=== PATIENT | male | born 1965 | race Caucasian/White ===

== ENCOUNTER 2016-06-30 19:19 | Inpatient (IN) | payer MEDICARE, MEDICAID ==
[~2016-06-30] VITALS: Ht 170.2 cm; Wt 45.4 kg
[~2016-06-30 19:19] MED LIST: ALLEGRA60 MG PO; BENADRYL50 MG PO; BISMUTH262 MG PO; BUPROPION HCL150 M3 ORAL; CEFTIN500 MG ORAL; DOXYCYCLINE MO100 MG ORAL; ESTRADIOL1 EA10 TD; IBUPROFEN800 MG PO; ISENTRESS400 MG PO; LEVAQUIN500 MG ORAL; METRONIDAZOLE500 MG ORAL; MIRTAZAPINE30 MG PO; NASACORT AQ16.5 GM NASAL; NORVIR100 MG PO; PREMARIN1.25 MG PO; PREZISTA600 MG PO; PROAIR HFA8.5 GM INH; PROSCAR5 MG PO; RESTORIL7.5 MG PO; SEROSTIM4 MG SQ; TRUVADA TABLET1 EACH PO; VALACYCLOVIR500 MG PO; VITAMIN D50000 UNIT PO; WELLBUTRIN SR200 MG PO; ZYPREXA5 MG PO
[2016-06-30 20:50] VITALS: BP 151/89
[2016-06-30 20:55] LABS: APPEARANCE,URINE CLEAR; KETONES,URINE NEGATIVE (NEGATIVE); LEUKOCYTE ESTERASE ,URINE 1+ (NEGATIVE); NITRITE,URINE NEGATIVE (NEGATIVE); PH,URINE 6.5 (4.5-8.0); PROTEIN,URINE 2+ (NEGATIVE); UROBILINOGEN,URINE 8 MG/DL (0.0-1.0)
[2016-06-30 21:08] LABS: MEAN CORPUSCULAR HEMOGLOBIN 31.2 PG (27.0-31.0); MEAN CORPUSCULAR HGB CONC 35.7 G/DL (32.0-36.0); MEAN CORPUSCULAR VOLUME 87 FL (80-99); MEAN PLATELET VOLUME 7.4 FL (6.5-10.1); PLATELET COUNT 75 K/UL (150-450); RED BLOOD COUNT 3.95 M/UL (4.70-6.10); RED CELL DISTRIBUTION WIDTH 12.3 % (11.6-14.8); WHITE BLOOD COUNT 5.4 K/UL (4.8-10.8)
[2016-06-30 21:13] LABS: AMORPHOUS SEDIMENT,UR FEW /LPF; BACTERIA,URINE FEW /HPF
[2016-06-30 21:22] LABS: ALANINE AMINOTRANSFERASE 26 U/L (3-41); ALBUMIN/GLOBULIN RATIO 0.6 (1.0-2.7); ANION GAP 13 (5-15); ASPARTATE AMINO TRANSFERASE 47 U/L (5-40); CALCIUM 8.2 mg/dL (8.6-10.2); CARBON DIOXIDE 23 mEQ/L (20-30); CHLORIDE 91 mEQ/L (98-107); CREATININE 0.8 mg/dL (0.7-1.2); GLOMERULAR FILTRATION RATE > 60 mL/min (>60); HEMOLYSIS 4; LIPASE 65 U/L (< 60); SODIUM 127 mEQ/L (135-145); TOTAL PROTEIN 6.7 g/dL (6.6-8.7)
[2016-06-30 21:54] LABS: BAND NEUTROPHILS % (MANUAL) 1 % (0-8); EOSINOPHILS % (MANUAL) 4 % (0-3); LYMPHOCYTES % (MANUAL) 11 % (20-45); NEUTROPHILS % (MANUAL) 76 % (45-75); PLATELET MORPHOLOGY NORMAL; TOTAL CELLS COUNTED 100
[2016-06-30 21:55] LABS: BASOPHILS % (MANUAL) 0 % (0-2); PLATELET ESTIMATE DECREASED
[2016-06-30] MEDS ORDERED: DuoNeb 0.5-3(2.5)mg/3ml neb HHN ONE (22:30)
--- NOTE | 2016-06-30 22:30 | Emergency Room Report ---
History of Present Illness General Chief Complaint: Diarrhea Source: Patient Present Illness HPI Patient a 50-year-old male who presented after increased generalized weakness as well as fever and difficulty breathing. Patient prior history of HIV disease. Patient reports having high viral load as well as a low CD4 count the past. Patient reported having increased fever nonproductive cough. He had previously been receiving IVIG infusion. Patient was followed by Dr. Jin Alfonso. The patient for having increased diarrhea. He reported having some nausea without vomiting. Patient reported feeling somewhat dizzy and lightheaded. He had nonproductive cough and history of COPD Allergies: Coded Allergies: HYDROMORPHONE (Verified Allergy, Severe, RASH, 06/30/16) PROCHLORPERAZINE (Verified Allergy, Severe, RASH, 06/30/16) SULFAMETHOXAZOLE (Verified Allergy, Severe, 06/30/16) SULFONYLUREAS (Verified Allergy, Severe, 06/30/16) TRIMETHOPRIM (Verified Allergy, Severe, 06/30/16) METOCLOPRAMIDE (Verified Allergy, Mild, 06/30/16) ARIPIPRAZOLE (Unverified Allergy, Unknown, 06/30/16) HALOPERIDOL (Verified Allergy, Unknown, 06/30/16) Uncoded Allergies: Plastic tape (Allergy, Mild, 06/21/14) Patient states that he gets blisters around it. Patient History Past Medical History: see triage record, COPD, HIV Reviewed Nursing Documentation: PMH: Agreed, PSxH: Agreed Nursing Documentation-PMH Past Medical History: No History, Except For Hx Cardiac Problems: Yes - Hep C, HIV+, Portacath LUE Hx Hypertension: Yes Hx Asthma: Yes Hx COPD: Yes Hx Cancer: No Hx Gastrointestinal Problems: Yes Hx Neurological Problems: No Hx Headaches: Yes Hx Weakness: Yes Hx Fatigue: Yes Review of Systems All Other Systems: negative except mentioned in HPI Physical Exam Vital Signs Date Time Temp Pulse Resp B/P Pulse Ox O2 Delivery O2 Flow Rate FiO2 06/30/16 19:39 99.0 106 22 130/83 98 06/30/16 20:50 Room Air Sp02 EP Interpretation: reviewed, normal General Appearance: normal inspection, alert, GCS 15, mild distress, Chronically Ill Head: atraumatic ENT: normal ENT inspection, hearing grossly normal, normal voice Neck: normal inspection, full range of motion, supple, no bony tend Respiratory: normal inspection, normal breath sounds, no respiratory distress, no retraction, wheezing Cardiovascular #1: regular rate, rhythm, no edema Gastrointestinal: normal inspection, normal bowel sounds, non tender, soft, no guarding, no hernia Genitourinary: no CVA tenderness Musculoskeletal: normal inspection, back normal, normal range of motion, other - left forearm, PICC line Neurologic: normal inspection, alert, oriented x3, responsive, floor layer III-XII nml as tested, speech normal Psychiatric: normal inspection, judgement/insight normal, mood/affect normal Skin: normal inspection, normal color, no rash Medical Decision Making Diagnostic Impression: Primary Impression: Hyponatremia Additional Impressions: Hypokalemia Chronic inflammatory demyelinating polyneuropathy ER Course Patient presented for fever as well as generalized weakness. Differential diagnosis included was not limited to pneumonia, line infection, gastroenteritis, colitis, viral infection and among others.Because of complexity of patient's case laboratory testing and imaging studies were ordered. The patient noted be hyponatremic as well as hypokalemic. The patient started on breathing treatments. The patient is given oral potassium in emergency department. Dr. Dotty Whiting was contacted for inpatient management. Laboratory Tests Test 07/02/16 08:50 07/03/16 05:10 White Blood Count 2.5 x10E3/uL (3.4-10.8) L 2.1 K/UL (4.8-10.8) *L Red Blood Count 3.58 M/UL (4.70-6.10) L 3.53 M/UL (4.70-6.10) L Hemoglobin 10.7 G/DL (14.2-18.0) L 10.3 G/DL (14.2-18.0) L Hematocrit 31.0 % (42.0-52.0) L 30.6 % (42.0-52.0) L Mean Corpuscular Volume 86 FL (80-99) 87 FL (80-99) Mean Corpuscular Hemoglobin 29.8 PG (27.0-31.0) 29.2 PG (27.0-31.0) Mean Corpuscular Hemoglobin Concent 34.5 G/DL (32.0-36.0) 33.7 G/DL (32.0-36.0) Red Cell Distribution Width 12.6 % (11.6-14.8) 12.5 % (11.6-14.8) Platelet Count 78 K/UL (150-450) L 75 K/UL (150-450) L Mean Platelet Volume 6.9 FL (6.5-10.1) 7.5 FL (6.5-10.1) Neutrophils (%) (Auto) % (45.0-75.0) % (45.0-75.0) Lymphocytes (%) (Auto) % (20.0-45.0) % (20.0-45.0) Monocytes (%) (Auto) % (1.0-10.0) % (1.0-10.0) Eosinophils (%) (Auto) % (0.0-3.0) % (0.0-3.0) Basophils (%) (Auto) % (0.0-2.0) % (0.0-2.0) Differential Total Cells Counted 100 100 Neutrophils % (Manual) 59 % (45-75) 53 % (45-75) Lymphocytes % (Manual) 19 % (20-45) L 36 % (20-45) Monocytes % (Manual) 18 % (1-10) H 7 % (1-10) Eosinophils % (Manual) 3 % (0-3) 4 % (0-3) H Basophils % (Manual) 0 % (0-2) 0 % (0-2) Band Neutrophils 1 % (0-8) 0 % (0-8) Lymphocytes 21 % (.) Nucleated Red Blood Cells (.) Platelet Estimate Decreased L Decreased L Platelet Morphology Normal Normal Hypochromasia 1+ 1+ Anisocytosis 1+ Spherocytes 1+ Sodium Level 130 mEQ/L (135-145) L 132 mEQ/L (135-145) L Potassium Level 3.0 mEQ/L (3.4-4.9) L 3.8 mEQ/L (3.4-4.9) Chloride Level 98 mEQ/L (98-107) 99 mEQ/L (98-107) Carbon Dioxide Level 21 mEQ/L (20-30) 23 mEQ/L (20-30) Anion Gap 11 (5-15) 10 (5-15) Blood Urea Nitrogen 5 mg/dL (7-23) L 5 mg/dL (7-23) L Creatinine 0.6 mg/dL (0.7-1.2) L 0.7 mg/dL (0.7-1.2) Estimate Glomerular Filtration Rate > 60 mL/min (>60) > 60 mL/min (>60) Glucose Level 119 mg/dL (74-106) H 84 mg/dL (74-106) Calcium Level 7.8 mg/dL (8.6-10.2) L 7.8 mg/dL (8.6-10.2) L Total Bilirubin 0.3 mg/dL (0.0-1.2) Aspartate Amino Transferase (AST) 60 U/L (5-40) H Alanine Aminotransferase (ALT) 29 U/L (3-41) Alkaline Phosphatase 84 U/L (40-129) Total Protein 5.9 g/dL (6.6-8.7) L Albumin 2.1 g/dL (3.5-5.2) L Globulin 3.8 g/dL Albumin/Globulin Ratio 0.5 (1.0-2.7) L Absolute Lymphocytes 0.5 x10E3/uL (0.7-3.1) L Percent CD3 Cells 72.4 % (57.5-86.2) Absolute CD3 Count 362 /uL (622-2402) L Percent CD4 Cells 8.9 % (30.8-58.5) L Absolute CD4 Count 45 /uL (359-1519) L T-Lymphocyte CD4/CD8 Ratio 0.14 (0.92-3.72) L Percent CD8 Cells 63.1 % (12.0-35.5) H Absolute CD8 Count 316 /uL (109-897) Last Vital Signs Date Time Temp Pulse Resp B/P Pulse Ox O2 Delivery O2 Flow Rate FiO2 06/30/16 20:50 99.0 97 23 151/89 100 Room Air Status: unchanged Disposition: ADMITTED INPATIENT Condition: Serious Referrals: JIN ALFONSO (PCP) Bennett Still June 30, 2016 22:30
[2016-06-30 23:30] VITALS: BP 131/81
[2016-07-01] VITALS (7 sets, daily range): BP systolic 115–132; BP diastolic 71–85
[2016-07-01] MEDS ORDERED: Zolpidem 5mg tab ORAL PRN (00:15)
[2016-07-01] MEDS ORDERED: Albuterol ud Inhalation HHN PRN (00:15)
[2016-07-01 06:42] LABS: MEAN CORPUSCULAR HEMOGLOBIN 29.7 PG (27.0-31.0); MEAN CORPUSCULAR HGB CONC 34.3 G/DL (32.0-36.0); MEAN CORPUSCULAR VOLUME 87 FL (80-99); MEAN PLATELET VOLUME 7.5 FL (6.5-10.1); PLATELET COUNT 71 K/UL (150-450); RED BLOOD COUNT 3.75 M/UL (4.70-6.10); RED CELL DISTRIBUTION WIDTH 12.6 % (11.6-14.8); WHITE BLOOD COUNT 4.2 K/UL (4.8-10.8)
[2016-07-01 08:01] LABS: ALANINE AMINOTRANSFERASE 26 U/L (3-41); ALBUMIN/GLOBULIN RATIO 0.6 (1.0-2.7); ANION GAP 13 (5-15); ASPARTATE AMINO TRANSFERASE 53 U/L (5-40); CALCIUM 7.8 mg/dL (8.6-10.2); CARBON DIOXIDE 21 mEQ/L (20-30); CHLORIDE 99 mEQ/L (98-107); CREATININE 0.7 mg/dL (0.7-1.2); GLOMERULAR FILTRATION RATE > 60 mL/min (>60); HEMOLYSIS 6; POTASSIUM 3.3 mEQ/L (3.4-4.9); SODIUM 133 mEQ/L (135-145)
--- NOTE | 2016-07-01 08:35 | General Progress Note ---
Progress Note Progress Note [id number] full H&P dictated EMMANUEL KELSEY July 01, 2016 08:35
[2016-07-01] MEDS ORDERED: Isentress 400mg tab ORAL SCH (09:00)
[2016-07-01] MEDS ORDERED: Emitricitabine/Tenofovir 200/300mg tab ORAL SCH (09:00)
[2016-07-01] MEDS ORDERED: Morphine Sulfate 2mg/ml Inj IVP PRN (10:00)
[2016-07-01 10:51] LABS: BAND NEUTROPHILS % (MANUAL) 0 % (0-8); BASOPHILS % (MANUAL) 1 % (0-2); EOSINOPHILS % (MANUAL) 4 % (0-3); LYMPHOCYTES % (MANUAL) 14 % (20-45); NEUTROPHILS % (MANUAL) 72 % (45-75); PLATELET ESTIMATE DECREASED; PLATELET MORPHOLOGY NORMAL; TOTAL CELLS COUNTED 100
[2016-07-01] MEDS: Morphine Sulfate 2mg/ml Inj IVP PRN ×3 (11:04→21:46)
[2016-07-01 11:59] LABS: APPEARANCE,URINE CLEAR; KETONES,URINE NEGATIVE (NEGATIVE); LEUKOCYTE ESTERASE ,URINE NEGATIVE (NEGATIVE); NITRITE,URINE NEGATIVE (NEGATIVE); PH,URINE 7 (4.5-8.0); PROTEIN,URINE NEGATIVE (NEGATIVE); UROBILINOGEN,URINE NORMAL MG/DL (0.0-1.0)
[2016-07-01 12:18] LABS: BACTERIA,URINE OCCASIONAL /HPF; WBC,URINE 0-2 /HPF (0 - 0)
--- NOTE | 2016-07-01 12:27 | Diagnostic Imaging Report ---
Indication: Chest pain Technique: One view of the chest Comparison: 06/30/2016 Findings: Lungs and pleural spaces remain clear. Left arm PICC remains. Heart size is normal. Degenerative changes of both shoulders again noted Impression: No acute process
[2016-07-01] MEDS: cefTRIAXone 1 GM in D5W 55 ML IVPB SCH (12:31)
--- NOTE | 2016-07-01 13:32 | Diagnostic Imaging Report ---
Indication: SOB Technique: One view of the chest Comparison: 01/26/2016 Findings: Left arm PICC is again demonstrated. Lungs and pleural spaces are clear. Degenerative changes of both shoulders are again noted Impression: No acute process
[2016-07-01] MEDS: metroNIDAZOLE 500mg 100 ML IVPB SCH ×2 (15:04→21:47)
--- NOTE | 2016-07-01 15:58 | Consultation ---
History of Present Illness General Date patient seen: July 01, 2016 Chief Complaint: Diarrhea Referring physician: Dr. Whiting Reason for Consultation: COPd Present Illness HPI 50-year-old male with hx of AIDS, homeless, who presented to ER with CC of increased generalized weakness as well as fever and difficulty breathing. Patient reported having increased fever nonproductive cough. He reported having some nausea without vomiting. Patient reported feeling somewhat dizzy and lightheaded. He had nonproductive cough and history of COPD. Allergies: Coded Allergies: HYDROMORPHONE (Verified Allergy, Severe, RASH, 06/30/16) PROCHLORPERAZINE (Verified Allergy, Severe, RASH, 06/30/16) SULFAMETHOXAZOLE (Verified Allergy, Severe, 06/30/16) SULFONYLUREAS (Verified Allergy, Severe, 06/30/16) TRIMETHOPRIM (Verified Allergy, Severe, 06/30/16) METOCLOPRAMIDE (Verified Allergy, Mild, 06/30/16) ARIPIPRAZOLE (Unverified Allergy, Unknown, 06/30/16) HALOPERIDOL (Verified Allergy, Unknown, 06/30/16) Uncoded Allergies: Plastic tape (Allergy, Mild, 06/21/14) Patient states that he gets blisters around it. Medication History Scheduled Bupropion Hcl* (Bupropion Hcl Sr*), 150 MG ORAL EVERY 12 HOURS, (Reported) Darunavir Ethanolate* (Prezista*), 600 MG PO BID, (Reported) Diphenhydramine HCl (Diphenhydramine HCl), 50 MG PO QHS, (Reported) Emtricitabine/Tenofovir (Truvada Tablet), 1 EACH PO DAILY, (Reported) Estradiol (Estradiol), 1 EACH TD TWICE A WEEK, (Reported) Estrogens,Conjugated (Premarin), 1.25 MG PO DAILY, (Reported) Raltegravir (Isentress), 400 MG PO BID, (Reported) Ritonavir* (Norvir*), 100 MG PO BID, (Reported) Somatropin (Serostim), 6 MG SQ DAILY, (Reported) Scheduled PRN Albuterol Sulfate* (Proair Hfa*), 1 PUFF INH Q6HR PRN, (Reported) Patient History Healthcare decision maker Resuscitation status Full Code Advanced Directive on File Past Medical/Surgical History Past Medical/Surgical History: (1) Hepatitis C (2) Chronic inflammatory demyelinating polyneuropathy (3) Wasting syndrome (4) AIDS (5) Transgender incomplete state (6) Bipolar 1 disorder, depressed, moderate Review of Systems All Other Systems: negative except mentioned in HPI Physical Exam General Appearance: cachetic Lines, tubes and drains: peripheral HEENT: normocephalic, atraumatic Neck: non-tender, normal alignment Respiratory/Chest: chest wall non-tender, normal breath sounds Cardiovascular/Chest: normal peripheral pulses, normal rate Abdomen: normal bowel sounds, non tender Genitourinary/Rectal: normal genital exam, normal rectal exam Extremities: normal range of motion, non-tender 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 II-XII grossly normal Last 24 Hour Vital Signs Date Time Temp Pulse Resp B/P Pulse Ox O2 Delivery O2 Flow Rate FiO2 07/01/16 11:52 97.5 74 18 120/71 95 Room Air 07/01/16 07:44 98.2 93 21 128/85 96 Room Air 07/01/16 06:50 82 18 Room Air 21 07/01/16 04:00 98.2 83 18 115/76 97 Room Air 07/01/16 00:45 98.2 91 18 131/75 96 Room Air 06/30/16 23:38 99.0 98 19 131/81 97 Room Air 06/30/16 23:30 99.0 98 19 131/81 97 Room Air 06/30/16 22:57 89 18 100 Room Air 06/30/16 22:44 96 18 94 Room Air 06/30/16 22:43 87 18 Room Air 06/30/16 20:50 99.0 97 23 151/89 100 Room Air 06/30/16 19:39 99.0 106 22 130/83 98 Intake and Output 06/30/16 07/01/16 19:00 07:00 Intake Total 1080 ml Balance 1080 ml Intake Oral 480 ml IV Total 600 ml # Voids 1 # Bowel Movements 2 Laboratory Tests Test 06/30/16 20:00 06/30/16 20:30 07/01/16 05:20 07/01/16 11:11 Urine Color Yellow Pale yellow Urine Appearance Clear Clear Urine pH 6.5 (4.5-8.0) 7 (4.5-8.0) Urine Specific [place] 1.015 (1.005-1.035) 1.005 (1.005-1.035) Urine Protein 2+ (NEGATIVE) H Negative (NEGATIVE) Urine Glucose (UA) Negative (NEGATIVE) Negative (NEGATIVE) Urine Ketones Negative (NEGATIVE) Negative (NEGATIVE) Urine Occult Blood 3+ (NEGATIVE) H 1+ (NEGATIVE) H Urine Nitrite Negative (NEGATIVE) Negative (NEGATIVE) Urine Bilirubin Negative (NEGATIVE) Negative (NEGATIVE) Urine Urobilinogen 8 MG/DL (0.0-1.0) H Normal MG/DL (0.0-1.0) Urine Leukocyte Esterase 1+ (NEGATIVE) H Negative (NEGATIVE) Urine RBC 5-10 /HPF (0 - 0) H 2-4 /HPF (0 - 0) H Urine WBC 2-4 /HPF (0 - 0) 0-2 /HPF (0 - 0) Urine Squamous Epithelial Cells None /LPF (NONE/OCC) None /LPF (NONE/OCC) Urine Amorphous Sediment Few /LPF (NONE) H Urine Bacteria Few /HPF (NONE) Occasional /HPF (NONE) White Blood Count 5.4 K/UL (4.8-10.8) 4.2 K/UL (4.8-10.8) L Red Blood Count 3.95 M/UL (4.70-6.10) L 3.75 M/UL (4.70-6.10) L Hemoglobin 12.3 G/DL (14.2-18.0) L 11.1 G/DL (14.2-18.0) L Hematocrit 34.5 % (42.0-52.0) L 32.4 % (42.0-52.0) L Mean Corpuscular Volume 87 FL (80-99) 87 FL (80-99) Mean Corpuscular Hemoglobin 31.2 PG (27.0-31.0) H 29.7 PG (27.0-31.0) Mean Corpuscular Hemoglobin Concent 35.7 G/DL (32.0-36.0) 34.3 G/DL (32.0-36.0) Red Cell Distribution Width 12.3 % (11.6-14.8) 12.6 % (11.6-14.8) Platelet Count 75 K/UL (150-450) L 71 K/UL (150-450) L Mean Platelet Volume 7.4 FL (6.5-10.1) 7.5 FL (6.5-10.1) Neutrophils (%) (Auto) % (45.0-75.0) % (45.0-75.0) Lymphocytes (%) (Auto) % (20.0-45.0) % (20.0-45.0) Monocytes (%) (Auto) % (1.0-10.0) % (1.0-10.0) Eosinophils (%) (Auto) % (0.0-3.0) % (0.0-3.0) Basophils (%) (Auto) % (0.0-2.0) % (0.0-2.0) Differential Total Cells Counted 100 100 Neutrophils % (Manual) 76 % (45-75) H 72 % (45-75) Lymphocytes % (Manual) 11 % (20-45) L 14 % (20-45) L Monocytes % (Manual) 8 % (1-10) 9 % (1-10) Eosinophils % (Manual) 4 % (0-3) H 4 % (0-3) H Basophils % (Manual) 0 % (0-2) 1 % (0-2) Band Neutrophils 1 % (0-8) 0 % (0-8) Platelet Estimate Decreased L Decreased L Platelet Morphology Normal Normal Red Blood Cell Morphology Normal Normal Sodium Level 127 mEQ/L (135-145) L 133 mEQ/L (135-145) L Potassium Level 3.0 mEQ/L (3.4-4.9) L 3.3 mEQ/L (3.4-4.9) L Chloride Level 91 mEQ/L (98-107) L 99 mEQ/L (98-107) Carbon Dioxide Level 23 mEQ/L (20-30) 21 mEQ/L (20-30) Anion Gap 13 (5-15) 13 (5-15) Blood Urea Nitrogen 9 mg/dL (7-23) 7 mg/dL (7-23) Creatinine 0.8 mg/dL (0.7-1.2) 0.7 mg/dL (0.7-1.2) Estimat Glomerular Filtration Rate > 60 mL/min (>60) > 60 mL/min (>60) Glucose Level 89 mg/dL (74-106) 76 mg/dL (74-106) Calcium Level 8.2 mg/dL (8.6-10.2) L 7.8 mg/dL (8.6-10.2) L Total Bilirubin 0.7 mg/dL (0.0-1.2) 0.5 mg/dL (0.0-1.2) Aspartate Amino Transf (AST/SGOT) 47 U/L (5-40) H 53 U/L (5-40) H Alanine Aminotransferase (ALT/SGPT) 26 U/L (3-41) 26 U/L (3-41) Alkaline Phosphatase 89 U/L (40-129) 83 U/L (40-129) Total Protein 6.7 g/dL (6.6-8.7) 6.0 g/dL (6.6-8.7) L Albumin 2.6 g/dL (3.5-5.2) L 2.3 g/dL (3.5-5.2) L Globulin 4.1 g/dL 3.7 g/dL Albumin/Globulin Ratio 0.6 (1.0-2.7) L 0.6 (1.0-2.7) L Lipase 65 U/L (< 60) H Height (Feet): 5 Height (Inches): 7.00 Weight (Pounds): 100 Medications Current Medications Medications (Trade) Dose Ordered Sig/Tamar Route PRN Reason Start Time Stop Time Status Last Admin Dose Admin Abacavir/ Lamivudine (Epzicom) 1 tab DAILY ORAL 07/02/16 09:00 08/01/16 08:59 Acetaminophen (Tylenol) 650 mg Q6H PRN ORAL Mild Pain/Temp > 100.5 07/01/16 00:15 07/31/16 00:14 Albuterol Sulfate (Proventil) 2.5 mg Q4H PRN HHN Shortness of Breath 07/01/16 00:15 07/06/16 00:14 Ceftriaxone Sodium 1 gm/ Dextrose 55 ml @ 110 mls/hr Q24H IVPB 07/01/16 12:00 07/08/16 11:59 07/01/16 12:31 Dapsone 100 mg 100 mg DAILY ORAL 07/02/16 09:00 07/09/16 08:59 Darunavir (Prezista) 600 mg TWICE A DAY ORAL 07/01/16 09:00 07/31/16 08:59 UNV Dolutegravir Sodium (Tivicay) 50 mg DAILY ORAL 07/02/16 09:00 08/01/16 08:59 Estrogens Conjugated (Premarin) 1.25 mg DAILY ORAL 07/01/16 09:00 07/31/16 08:59 UNV Metronidazole (Flagyl) 100 ml @ 100 mls/hr Q8HR IVPB 07/01/16 14:00 07/08/16 13:59 07/01/16 15:04 Morphine Sulfate (Morphine Sulfate) 2 mg Q4H PRN IVP Severe Pain (Pain Scale 7-10) 07/01/16 11:00 07/08/16 10:59 07/01/16 11:04 Ondansetron HCl 4 mg 4 mg Q6H PRN IVP Nausea & Vomiting 07/01/16 00:45 07/31/16 00:44 Sodium Chloride (Sodium Chloride 1000ml bag) 1,000 ml @ 100 mls/hr Q10H IV 07/01/16 01:00 07/31/16 00:59 07/01/16 11:05 Zolpidem Tartrate (Ambien) 5 mg HSPRN PRN ORAL Insomnia 07/01/16 00:15 07/31/16 00:14 Assessment/Plan Problem List: (1) Bronchitis ICD Codes: J40 - Bronchitis, not specified as acute or chronic SNOMED: 37642310 (2) Severe malnutrition ICD Codes: E41 - Nutritional marasmus SNOMED: 55973569 (3) Hepatitis C ICD Codes: B19.20 - Viral hepatitis C SNOMED: 66998478 (4) AIDS ICD Codes: B20 - Acquired immunodeficiency syndrome SNOMED: 80792425 (5) Homelessness ICD Codes: Z59.0 - Homelessness SNOMED: 08578911 Assessment/Plan sputum for c/s antitussives respiratory treatment DC4 and DC8 count social service NATHANYOUSOLEPERJUANCHO July 01, 2016 15:58
--- NOTE | 2016-07-01 17:16 | History and Physical Report ---
DATE OF ADMISSION: 06/30/2016 REASON FOR ADMISSION: Fever and diarrhea. HISTORY OF PRESENT ILLNESS: The patient is a 50-year-old transgender male with past medical history significant for history of HIV, history of AIDS, hypertension, history of asthma, and bronchitis who presented to the emergency room complaining of three days history of fever. His fever was as high as 103 three days ago and continued to have fever. He has more than 10 bowel movements a day. Denies having any blood. He also complained of cough with no phlegm and no sputum. The patient presented to the ER. In the ER, the patient had a blood work done, which revealed severe hyponatremia and hypokalemia. He also found to have a fever, was admitted. He also has a PICC line, for that receiving IV immune globulin by his primary doctor, Dr. Abdi. PAST MEDICAL HISTORY: 1. History of heart disease. 2. History of hypertension. 3. History of asthma. 4. History of COPD. 5. History of AIDS. 6. History of hepatitis C. 7. History of chronic diarrhea in the past. PAST SURGICAL HISTORY: None mentioned. MEDICATIONS: Home medication are including 1. Serostim 4 mg every six days. 2. Norvir 100 mg daily. 3. Isentress 400 mg p.o. q. 12 h. 4. Premarin 1.25 mg p.o. daily. 5. Truvada one tablet daily. 6. Zyprexa 50 mg p.o. daily. 7. Prezista 600 mg p.o. q.12 h. 8. Bupropion 150 mg p.o. daily. 9. Albuterol and Atrovent q.6 h. p.r.n. shortness of breath. ALLERGIES: The patient is allergic to 1. Hydromorphone. 2. Promethazine. 3. Bactrim. 4. Sulfonylurea. 5. Trimethoprim. 6. Metoclopramide. 7. Haloperidol. FAMILY HISTORY: Noncontributory. REVIEW OF SYSTEMS: General: He complained of generalized weakness and has lost quite a bit of weight, he is not aware of exactly the amount of the weight loss. He complained of fever and chills and night sweats. Head And Neck: Denies any dysphagia, odynophagia, blurry vision, headache, or neck stiffness. Pulmonary: He complained of cough and no sputum. Mild shortness of breath. Mild wheezing Cardiovascular: No chest pain, but complained of palpitation. Gastrointestinal: Complained of diarrhea. No melena. No hematemesis. No hematochezia. Genitourinary: Denies any dysuria, frequency, or hematuria. Musculoskeletal: Complained of generalized weakness. Denies any localized weakness or numbness. PHYSICAL EXAMINATION: VITAL SIGNS: The patient had temperature of 99 degrees, blood pressure of 131/81, pulse rate of 98 and respiratory rate of 97. HEAD AND NECK: Bitemporal wasting. Extraocular movement intact. Pupils are reactive to light and accommodation. Dry mucous membranes. LUNGS: Clear to auscultation. CARDIAC: Regular rate and rhythm. S1 and S2 no murmur. No rub. ABDOMEN: Soft, nontender, and nondistended. He has bilateral right and left lower quadrant pain. No guarding. No rebound. EXTREMITIES: No edema. No clubbing. No cyanosis. LABORATORY AND DIAGNOSTIC DATA: The patient had WBC count of 5.4, hemoglobin of 12.3, hematocrit of 34, and platelet count of 35,000. Chemistry was sodium 127, potassium 3, chloride 91, bicarbonate 23, BUN of 9, and creatinine of 0.8. Calcium of 8.2. AST of 47, ALT of 26, and albumin of 2.6. Urine revealed specific gravity of 1.015, protein 2+, blood 3+, leukocyte esterase 1+, RBCs 5-10, and WBC 2-4. ASSESSMENT: 1. Febrile diarrhea. 2. Hyponatremia. 3. Hypokalemia. 4. Hypocalcemia. 5. Dehydration. 6. Diarrhea. 7. History of asthma. 8. History of human immunodeficiency virus. 9. History of hepatitis C. PLAN: To start the patient on IV with call the Infectious Disease consultation for evaluation. Stool for culture, C. difficile, ova and parasite, and stool cytology. I would start the patient on IV antibiotics based on the Infectious Disease recommendation. I would start the patient on normal saline for dehydration and replace the potassium. Check the vitamin D for evaluation of low calcium. For tachycardia, most likely is the result of fever, but we will get an EKG and get a Cardiology evaluation and restart the home medication. Dotty Whiting M.D. DR: CHRIS JOB#: [id number] CC:
[2016-07-01] MEDS ORDERED: Tubing IV Secondary IV ONE (17:57)
[2016-07-01] MEDS: DuoNeb 0.5-3(2.5)mg/3ml neb HHN SCH (19:42)
[2016-07-02] MEDS: DuoNeb 0.5-3(2.5)mg/3ml neb HHN SCH ×4 (01:29→20:38)
[2016-07-02 04:00] VITALS: BP 123/74
[2016-07-02] MEDS: Morphine Sulfate 2mg/ml Inj IVP PRN ×4 (04:10→20:16)
[2016-07-02] MEDS: metroNIDAZOLE 500mg 100 ML IVPB SCH ×3 (05:36→21:24)
[2016-07-02 08:57] VITALS: BP 131/80
[2016-07-02] MEDS: Dolutegravir Sodium 50mg tab ORAL SCH (09:10)
[2016-07-02] MEDS: Epzicom tab ORAL SCH (09:10)
[2016-07-02 09:14] LABS: MEAN CORPUSCULAR HEMOGLOBIN 29.8 PG (27.0-31.0); MEAN CORPUSCULAR HGB CONC 34.5 G/DL (32.0-36.0); MEAN CORPUSCULAR VOLUME 86 FL (80-99); MEAN PLATELET VOLUME 6.9 FL (6.5-10.1); PLATELET COUNT 78 K/UL (150-450); RED BLOOD COUNT 3.58 M/UL (4.70-6.10); RED CELL DISTRIBUTION WIDTH 12.6 % (11.6-14.8); WHITE BLOOD COUNT 2.6 K/UL (4.8-10.8)
[2016-07-02 09:34] LABS: ALANINE AMINOTRANSFERASE 29 U/L (3-41); ALBUMIN/GLOBULIN RATIO 0.5 (1.0-2.7); ANION GAP 11 (5-15); ASPARTATE AMINO TRANSFERASE 60 U/L (5-40); CALCIUM 7.8 mg/dL (8.6-10.2); CARBON DIOXIDE 21 mEQ/L (20-30); CHLORIDE 98 mEQ/L (98-107); CREATININE 0.6 mg/dL (0.7-1.2); GLOMERULAR FILTRATION RATE > 60 mL/min (>60); HEMOLYSIS 4; SODIUM 130 mEQ/L (135-145); TOTAL PROTEIN 5.9 g/dL (6.6-8.7)
[2016-07-02 10:31] LABS: BAND NEUTROPHILS % (MANUAL) 1 % (0-8); EOSINOPHILS % (MANUAL) 3 % (0-3); LYMPHOCYTES % (MANUAL) 19 % (20-45); NEUTROPHILS % (MANUAL) 59 % (45-75); TOTAL CELLS COUNTED 100
[2016-07-02 10:32] LABS: ANISOCYTOSIS 1+; BASOPHILS % (MANUAL) 0 % (0-2); HYPOCHROMASIA 1+; PLATELET ESTIMATE DECREASED; PLATELET MORPHOLOGY NORMAL; SPHEROCYTES 1+
[2016-07-02] MEDS: cefTRIAXone 1 GM in D5W 55 ML IVPB SCH (12:01)
[2016-07-02 12:47] VITALS: BP 123/76
--- NOTE | 2016-07-02 14:18 | Infectious Diseases Prog Note ---
Assessment/Plan Assessment/Plan Full consult dictated: A) 1) possible infectious diarrhea, possible c.diff., possible viral syndrome with gastroenteritis, uc - negative, chest x-ray negative, uri/bronchitis 2) hiv, aids 3) pmh noted P) 1) rocephin and flagyl 2) check stool w/u, labs and chest x-ray 3) anti-retroviral therapy 4) thank you Subjective Allergies: Coded Allergies: HYDROMORPHONE (Verified Allergy, Severe, RASH, 06/30/16) PROCHLORPERAZINE (Verified Allergy, Severe, RASH, 06/30/16) SULFAMETHOXAZOLE (Verified Allergy, Severe, 06/30/16) SULFONYLUREAS (Verified Allergy, Severe, 06/30/16) TRIMETHOPRIM (Verified Allergy, Severe, 06/30/16) METOCLOPRAMIDE (Verified Allergy, Mild, 06/30/16) ARIPIPRAZOLE (Unverified Allergy, Unknown, 06/30/16) HALOPERIDOL (Verified Allergy, Unknown, 06/30/16) Uncoded Allergies: Plastic tape (Allergy, Mild, 06/21/14) Patient states that he gets blisters around it. Objective Vital Signs Last 24 Hour Vital Signs Date Time Temp Pulse Resp B/P Pulse Ox O2 Delivery O2 Flow Rate FiO2 07/02/16 12:47 97.0 93 21 123/76 99 Room Air 07/02/16 12:44 Room Air 07/02/16 12:44 Room Air 07/02/16 08:57 97.7 86 21 131/80 97 Room Air 07/02/16 07:51 84 18 100 Room Air 07/02/16 07:47 21 07/02/16 07:47 84 18 96 Room Air 07/02/16 07:47 84 18 Room Air 21 07/02/16 04:45 98.0 07/02/16 04:00 97.7 84 18 123/74 96 Room Air 07/02/16 01:31 71 18 100 Room Air 07/02/16 01:31 21 07/02/16 01:30 76 18 97 Room Air 07/01/16 23:42 98.0 83 18 124/76 98 Room Air 07/01/16 20:00 97.9 89 18 132/85 98 Room Air 07/01/16 19:46 87 18 99 Room Air 07/01/16 19:45 85 18 95 Room Air 07/01/16 19:45 86 18 Room Air 21 07/01/16 19:45 21 07/01/16 18:39 97.9 07/01/16 16:00 101.7 81 18 115/80 Height (Feet): 5 Height (Inches): 7.00 Weight (Pounds): 100 Microbiology Date/Time Source Procedure Growth Status 07/01/16 11:11 Urine,Clean Catch Urine Culture - Preliminary NO GROWTH Resulted Laboratory Tests Test 07/02/16 08:50 White Blood Count Pending Red Blood Count 3.58 M/UL (4.70-6.10) L Hemoglobin 10.7 G/DL (14.2-18.0) L Hematocrit 31.0 % (42.0-52.0) L Mean Corpuscular Volume 86 FL (80-99) Mean Corpuscular Hemoglobin 29.8 PG (27.0-31.0) Mean Corpuscular Hemoglobin Concent 34.5 G/DL (32.0-36.0) Red Cell Distribution Width 12.6 % (11.6-14.8) Platelet Count 78 K/UL (150-450) L Mean Platelet Volume 6.9 FL (6.5-10.1) Neutrophils (%) (Auto) % (45.0-75.0) Lymphocytes (%) (Auto) % (20.0-45.0) Monocytes (%) (Auto) % (1.0-10.0) Eosinophils (%) (Auto) % (0.0-3.0) Basophils (%) (Auto) % (0.0-2.0) Differential Total Cells Counted 100 Neutrophils % (Manual) 59 % (45-75) Lymphocytes % (Manual) 19 % (20-45) L Monocytes % (Manual) 18 % (1-10) H Eosinophils % (Manual) 3 % (0-3) Basophils % (Manual) 0 % (0-2) Band Neutrophils 1 % (0-8) Lymphocytes Pending Platelet Estimate Decreased L Platelet Morphology Normal Hypochromasia 1+ Anisocytosis 1+ Spherocytes 1+ Sodium Level 130 mEQ/L (135-145) L Potassium Level 3.0 mEQ/L (3.4-4.9) L Chloride Level 98 mEQ/L (98-107) Carbon Dioxide Level 21 mEQ/L (20-30) Anion Gap 11 (5-15) Blood Urea Nitrogen 5 mg/dL (7-23) L Creatinine 0.6 mg/dL (0.7-1.2) L Estimat Glomerular Filtration Rate > 60 mL/min (>60) Glucose Level 119 mg/dL (74-106) H Calcium Level 7.8 mg/dL (8.6-10.2) L Total Bilirubin 0.3 mg/dL (0.0-1.2) Aspartate Amino Transf (AST/SGOT) 60 U/L (5-40) H Alanine Aminotransferase (ALT/SGPT) 29 U/L (3-41) Alkaline Phosphatase 84 U/L (40-129) Total Protein 5.9 g/dL (6.6-8.7) L Albumin 2.1 g/dL (3.5-5.2) L Globulin 3.8 g/dL Albumin/Globulin Ratio 0.5 (1.0-2.7) L Percent CD3 Cells Pending Absolute CD3 Count Pending Percent CD4 Cells Pending Absolute CD4 Count Pending T-Lymphocyte CD4/CD8 Ratio Pending Percent CD8 Cells Pending Absolute CD8 Count Pending Current Medications Medications (Trade) Dose Ordered Sig/Tamar Route PRN Reason Start Time Stop Time Status Last Admin Dose Admin Abacavir/ Lamivudine (Epzicom) 1 tab DAILY ORAL 07/02/16 09:00 08/01/16 08:59 07/02/16 09:10 Acetaminophen (Tylenol) 650 mg Q6H PRN ORAL Mild Pain/Temp > 100.5 07/01/16 00:15 07/31/16 00:14 07/01/16 17:40 Albuterol Sulfate (Proventil) 2.5 mg Q4H PRN HHN Shortness of Breath 07/01/16 00:15 07/06/16 00:14 Albuterol/ Ipratropium (DuoNeb 0.5-3(2.5)mg/3ml) 3 ml Q6HRT HHN 07/01/16 19:00 07/06/16 18:59 07/02/16 07:47 Ceftriaxone Sodium 1 gm/ Dextrose 55 ml @ 110 mls/hr Q24H IVPB 07/01/16 12:00 07/08/16 11:59 07/02/16 12:01 Dapsone 100 mg 100 mg DAILY ORAL 07/02/16 09:00 07/09/16 08:59 07/02/16 09:10 Darunavir (Prezista) 600 mg TWICE A DAY ORAL 07/01/16 09:00 07/31/16 08:59 UNV Dolutegravir Sodium (Tivicay) 50 mg DAILY ORAL 07/02/16 09:00 08/01/16 08:59 07/02/16 09:10 Estrogens Conjugated (Premarin) 1.25 mg DAILY ORAL 07/01/16 09:00 07/31/16 08:59 UNV Metronidazole (Flagyl) 100 ml @ 100 mls/hr Q8HR IVPB 07/01/16 14:00 07/08/16 13:59 07/02/16 05:36 Morphine Sulfate (Morphine Sulfate) 2 mg Q4H PRN IVP Severe Pain (Pain Scale 7-10) 07/01/16 11:00 07/08/16 10:59 07/02/16 09:45 Ondansetron HCl 4 mg 4 mg Q6H PRN IVP Nausea & Vomiting 07/01/16 00:45 07/31/16 00:44 Potassium Chloride (K-Dur) 40 meq ONCE ONCE ORAL 07/02/16 16:00 07/02/16 16:01 Promethazine HCl/ Codeine (Phenergan with Codeine) 5 ml Q4H PRN ORAL For Cough 07/01/16 16:00 07/31/16 15:59 Sodium Chloride (Sodium Chloride 1000ml bag) 1,000 ml @ 100 mls/hr Q10H IV 07/01/16 01:00 07/31/16 00:59 07/02/16 12:02 Zolpidem Tartrate (Ambien) 5 mg HSPRN PRN ORAL Insomnia 07/01/16 00:15 07/31/16 00:14 JOSE RAMIREZ July 02, 2016 14:18
[2016-07-02 16:07] VITALS: BP 101/64
[2016-07-02 20:17] VITALS: BP 129/74
[2016-07-02] MEDS: Promethazine/Codeine 5ml UD ORAL PRN (21:23)
--- NOTE | 2016-07-02 22:45 | Nephrology Progress Note ---
Assessment/Plan Assessment 1. Febrile diarrhea. 2. Hyponatremia. 3. Hypokalemia. 4. Hypocalcemia. 5. Dehydration. 6. Diarrhea. 7. History of asthma. 8. History of human immunodeficiency virus. 9. History of hepatitis C. Plan plan ivf iv antibiotic mix all ivpb with ns nutritional support replace k Subjective Constitutional: Reports: malaise, no symptoms, weakness HEENT: Reports: no symptoms Genitourinary: Reports: no symptoms Neurologic/Psychiatric: Reports: depressed Subjective c/o diarrhea and wt lost has good appetite Objective Objective Last 24 Hour Vital Signs Date Time Temp Pulse Resp B/P Pulse Ox O2 Delivery O2 Flow Rate FiO2 07/02/16 20:48 98.1 07/02/16 20:17 98.1 99 19 129/74 95 Room Air 07/02/16 19:45 85 20 98 Room Air 07/02/16 19:30 82 20 95 Room Air 07/02/16 19:30 82 20 Room Air 07/02/16 16:07 97.5 94 20 101/64 95 Room Air 07/02/16 12:47 97.0 93 21 123/76 99 Room Air 07/02/16 12:44 Room Air 07/02/16 12:44 Room Air 07/02/16 08:57 97.7 86 21 131/80 97 Room Air 07/02/16 07:51 84 18 100 Room Air 07/02/16 07:47 21 07/02/16 07:47 84 18 96 Room Air 07/02/16 07:47 84 18 Room Air 07/02/16 04:00 97.7 84 18 123/74 96 Room Air 07/02/16 01:31 71 18 100 Room Air 07/02/16 01:31 21 07/02/16 01:30 76 18 97 Room Air 07/01/16 23:42 98.0 83 18 124/76 98 Room Air Intake and Output 07/01/16 07/02/16 19:00 07:00 Intake Total 1255 ml 780 ml Balance 1255 ml 780 ml Intake Oral 600 ml 480 ml IV Total 655 ml 300 ml # Voids 3 3 # Bowel Movements 2 2 Laboratory Tests 07/02/16 08:50: White Blood Count [Pending], Red Blood Count 3.58L, Hemoglobin 10.7L, Hematocrit 31.0L, Mean Corpuscular Volume 86, Mean Corpuscular Hemoglobin 29.8, Mean Corpuscular Hemoglobin Concent 34.5, Red Cell Distribution Width 12.6, Platelet Count 78L, Mean Platelet Volume 6.9, Neutrophils (%) (Auto) , Lymphocytes (%) (Auto) , Monocytes (%) (Auto) , Eosinophils (%) (Auto) , Basophils (%) (Auto) , Differential Total Cells Counted 100, Neutrophils % ( Manual) 59, Lymphocytes % (Manual) 19L, Monocytes % (Manual) 18H, Eosinophils % (Manual) 3, Basophils % (Manual) 0, Band Neutrophils 1, Lymphocytes [Pending], Platelet Estimate DecreasedL, Platelet Morphology Normal, Hypochromasia 1+, Anisocytosis 1+, Spherocytes 1+, Sodium Level 130L, Potassium Level 3.0L, Chloride Level 98, Carbon Dioxide Level 21, Anion Gap 11, Blood Urea Nitrogen 5L , Creatinine 0.6L, Estimat Glomerular Filtration Rate > 60, Glucose Level 119H, Calcium Level 7.8L, Total Bilirubin 0.3, Aspartate Amino Transf (AST/SGOT) 60H, Alanine Aminotransferase (ALT/SGPT) 29, Alkaline Phosphatase 84, Total Protein 5.9L, Albumin 2.1L, Globulin 3.8, Albumin/Globulin Ratio 0.5L, Percent CD3 Cells [Pending], Absolute CD3 Count [Pending], Percent CD4 Cells [Pending], Absolute CD4 Count [Pending], T-Lymphocyte CD4/CD8 Ratio [Pending], Percent CD8 Cells [Pending], Absolute CD8 Count [Pending] Height (Feet): 5 Height (Inches): 7.00 Weight (Pounds): 100 Objective HEAD AND NECK: Bitemporal wasting. Extraocular movement intact. Pupils are reactive to light and accommodation. Dry mucous membranes. LUNGS: Clear to auscultation. CARDIAC: Regular rate and rhythm. S1 and S2 no murmur. No rub. ABDOMEN: Soft, nontender, and nondistended. He has bilateral right and left lower quadrant pain. No guarding. No rebound. EXTREMITIES: No edema. No clubbing. No cyanosis. EMMANUEL KELSEY July 02, 2016 22:45
[2016-07-02 23:48] VITALS: BP 121/71
--- NOTE | 2016-07-02 23:50 | Pulmonology Progress Note ---
Assessment/Plan Problems: (1) Fever (2) Bronchitis (3) Severe malnutrition (4) Hepatitis C (5) AIDS (6) Homelessness (7) Wasting syndrome Assessment/Plan check cultures continue antibiotics social service consult check electrolytes Subjective ROS Limited/Unobtainable: No Interval Events: feeling better Allergies: Coded Allergies: HYDROMORPHONE (Verified Allergy, Severe, RASH, 06/30/16) PROCHLORPERAZINE (Verified Allergy, Severe, RASH, 06/30/16) SULFAMETHOXAZOLE (Verified Allergy, Severe, 06/30/16) SULFONYLUREAS (Verified Allergy, Severe, 06/30/16) TRIMETHOPRIM (Verified Allergy, Severe, 06/30/16) METOCLOPRAMIDE (Verified Allergy, Mild, 06/30/16) ARIPIPRAZOLE (Unverified Allergy, Unknown, 06/30/16) HALOPERIDOL (Verified Allergy, Unknown, 06/30/16) Uncoded Allergies: Plastic tape (Allergy, Mild, 06/21/14) Patient states that he gets blisters around it. Objective Last 24 Hour Vital Signs Date Time Temp Pulse Resp B/P Pulse Ox O2 Delivery O2 Flow Rate FiO2 07/02/16 23:48 98.0 95 20 121/71 95 Room Air 07/02/16 20:48 98.1 07/02/16 20:17 98.1 99 19 129/74 95 Room Air 07/02/16 19:45 85 20 98 Room Air 21 07/02/16 19:30 82 20 95 Room Air 21 07/02/16 19:30 82 20 Room Air 21 07/02/16 16:07 97.5 94 20 101/64 95 Room Air 07/02/16 12:47 97.0 93 21 123/76 99 Room Air 07/02/16 12:44 Room Air 07/02/16 12:44 Room Air 07/02/16 08:57 97.7 86 21 131/80 97 Room Air 07/02/16 07:51 84 18 100 Room Air 07/02/16 07:47 21 07/02/16 07:47 84 18 96 Room Air 07/02/16 07:47 84 18 Room Air 21 07/02/16 04:00 97.7 84 18 123/74 96 Room Air 07/02/16 01:31 71 18 100 Room Air 07/02/16 01:31 21 07/02/16 01:30 76 18 97 Room Air Intake and Output 07/01/16 07/02/16 19:00 07:00 Intake Total 1255 ml 780 ml Balance 1255 ml 780 ml Intake Oral 600 ml 480 ml IV Total 655 ml 300 ml # Voids 3 3 # Bowel Movements 2 2 Objective HEENT: normocephalic, atraumatic Respiratory/Chest: chest wall non-tender, lungs clear Cardiovascular: normal peripheral pulses, normal rate Abdomen: normal bowel sounds, soft, non tender Genitourinary: normal external genitalia Extremities: no cyanosis Skin: no rash 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 II-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 grossly normal Lymphatic: no neck adenopathy Microbiology Date/Time Source Procedure Growth Status 07/01/16 11:11 Urine,Clean Catch Urine Culture - Preliminary NO GROWTH Resulted Laboratory Tests 07/02/16 08:50: White Blood Count [Pending], Red Blood Count 3.58L, Hemoglobin 10.7L, Hematocrit 31.0L, Mean Corpuscular Volume 86, Mean Corpuscular Hemoglobin 29.8, Mean Corpuscular Hemoglobin Concent 34.5, Red Cell Distribution Width 12.6, Platelet Count 78L, Mean Platelet Volume 6.9, Neutrophils (%) (Auto) , Lymphocytes (%) (Auto) , Monocytes (%) (Auto) , Eosinophils (%) (Auto) , Basophils (%) (Auto) , Differential Total Cells Counted 100, Neutrophils % ( Manual) 59, Lymphocytes % (Manual) 19L, Monocytes % (Manual) 18H, Eosinophils % (Manual) 3, Basophils % (Manual) 0, Band Neutrophils 1, Lymphocytes [Pending], Platelet Estimate DecreasedL, Platelet Morphology Normal, Hypochromasia 1+, Anisocytosis 1+, Spherocytes 1+, Sodium Level 130L, Potassium Level 3.0L, Chloride Level 98, Carbon Dioxide Level 21, Anion Gap 11, Blood Urea Nitrogen 5L , Creatinine 0.6L, Estimat Glomerular Filtration Rate > 60, Glucose Level 119H, Calcium Level 7.8L, Total Bilirubin 0.3, Aspartate Amino Transf (AST/SGOT) 60H, Alanine Aminotransferase (ALT/SGPT) 29, Alkaline Phosphatase 84, Total Protein 5.9L, Albumin 2.1L, Globulin 3.8, Albumin/Globulin Ratio 0.5L, Percent CD3 Cells [Pending], Absolute CD3 Count [Pending], Percent CD4 Cells [Pending], Absolute CD4 Count [Pending], T-Lymphocyte CD4/CD8 Ratio [Pending], Percent CD8 Cells [Pending], Absolute CD8 Count [Pending] Current Medications Medications (Trade) Dose Ordered Sig/Tamar Route PRN Reason Start Time Stop Time Status Last Admin Dose Admin Abacavir/ Lamivudine (Epzicom) 1 tab DAILY ORAL 07/02/16 09:00 08/01/16 08:59 07/02/16 09:10 Acetaminophen (Tylenol) 650 mg Q6H PRN ORAL Mild Pain/Temp > 100.5 07/01/16 00:15 07/31/16 00:14 07/01/16 17:40 Albuterol Sulfate (Proventil) 2.5 mg Q4H PRN HHN Shortness of Breath 07/01/16 00:15 07/06/16 00:14 Albuterol/ Ipratropium (DuoNeb 0.5-3(2.5)mg/3ml) 3 ml Q6HRT HHN 07/01/16 19:00 07/06/16 18:59 07/02/16 20:38 Ceftriaxone Sodium 1 gm/ Dextrose 55 ml @ 110 mls/hr Q24H IVPB 07/01/16 12:00 07/08/16 11:59 07/02/16 12:01 Dapsone 100 mg 100 mg DAILY ORAL 07/02/16 09:00 07/09/16 08:59 07/02/16 09:10 Darunavir (Prezista) 600 mg TWICE A DAY ORAL 07/01/16 09:00 07/31/16 08:59 UNV Dolutegravir Sodium (Tivicay) 50 mg DAILY ORAL 07/02/16 09:00 08/01/16 08:59 07/02/16 09:10 Estrogens Conjugated (Premarin) 1.25 mg DAILY ORAL 07/01/16 09:00 07/31/16 08:59 UNV Metronidazole (Flagyl) 100 ml @ 100 mls/hr Q8HR IVPB 07/01/16 14:00 07/08/16 13:59 07/02/16 21:24 Morphine Sulfate (Morphine Sulfate) 2 mg Q4H PRN IVP Severe Pain (Pain Scale 7-10) 07/01/16 11:00 07/08/16 10:59 07/02/16 20:16 Ondansetron HCl 4 mg 4 mg Q6H PRN IVP Nausea & Vomiting 07/01/16 00:45 07/31/16 00:44 Promethazine HCl/ Codeine (Phenergan with Codeine) 5 ml Q4H PRN ORAL For Cough 07/01/16 16:00 07/31/16 15:59 07/02/16 21:23 Sodium Chloride (Sodium Chloride 1000ml bag) 1,000 ml @ 100 mls/hr Q10H IV 07/01/16 01:00 07/31/16 00:59 07/02/16 12:02 Zolpidem Tartrate (Ambien) 5 mg HSPRN PRN ORAL Insomnia 07/01/16 00:15 07/31/16 00:14 PAULO JOHNSON July 02, 2016 23:50
[2016-07-03] MEDS: Morphine Sulfate 2mg/ml Inj IVP PRN ×3 (01:01→21:11)
--- NOTE | 2016-07-03 01:32 | Consultation ---
DATE OF CONSULTATION: 07/02/2016 INFECTIOUS DISEASE CONSULTATION CONSULTING PHYSICIAN: Nidhi Muse M.D. ATTENDING PHYSICIAN: Dotty Whiting M.D. REASON FOR CONSULTATION: Fevers and diarrhea. ADMITTING DIAGNOSES: Dehydration and hypokalemia. HISTORY OF PRESENT ILLNESS: This is a 50-year-old male with history of HIV in the past and I believe he also has history of AIDS. The patient is not on antiretroviral therapy. Infectious Disease consultation is requested because the patient has been having fevers and diarrhea. The patient has history of infectious diarrhea, history of antibiotics, and history also positive for C. difficile. The patient was started on Rocephin and Flagyl yesterday. The patient's stool workup is pending. Urine culture is negative and blood cultures are pending. CD4 count has also been ordered. The patient was continued on antibiotics of Rocephin and Flagyl pending workup. MAR was noted. Orders were noted. Notes were reviewed. Of note, the patient's chest x-ray is negative and urine culture as discussed above is negative. Also of note, the patient has had symptoms for several days at least. PAST MEDICAL HISTORY: He has history of HIV, AIDS, history of weakness, history of hepatitis C, history of CIDP, polyneuropathy, history of wasting, history of bipolar disease, and depression. No history of diabetes or hypertension. History of cystitis in the past and UTI, history of asthma, history of malnutrition and history of pancreatitis in the past, and history of methamphetamine use. He also has history of anemia. He does have history of hypertension, heart disease, asthma, and COPD. MEDICATIONS: Upon reviewing the MAR, the patient is on following medications. He is on K-Dur, dapsone, Epzicom, Tivicay, DuoNeb, Phenergan, Rocephin, Flagyl, morphine, darunavir which is Prezista, estrogen, Zofran, albuterol, zolpidem, and acetaminophen. ALLERGIES: Include aripiprazole, haloperidol, hydromorphone, metoclopramide, prochlorperazine, sulfamethoxazole, drugs, and plastic tape. SOCIAL HISTORY: At this time, negative for ETOH and smoking abuse, but he does have history of polysubstance abuse including methamphetamines in the past. FAMILY HISTORY: Noncontributory. Negative for exposure to tuberculosis or cancer. REVIEW OF SYSTEMS: Constitutional: Denies weakness, fatigue, fevers, dehydration, weight loss, failure to thrive. Head And Neck: No head pain or neck pain. No neck stiffness, thrush, or dysphagia. Cardiac: No chest pain or palpitations. Gastrointestinal: No nausea, vomiting, abdominal discomfort diarrhea. Skin: No rash. Neurologic: No seizures. Musculoskeletal: No effusions. Genitourinary: No Reese. He has got history of frequency. Pulmonary: No congestion, shortness of breath, or secretion. May be mild cough, but no significant secretions. May be he has some yellow-green sputum production, but no hemoptysis. PHYSICAL EXAMINATION: GENERAL: The patient is alert, responsive, in no acute distress, oriented x3. He looks cachetic. VITAL SIGNS: T-max is 101.7 degrees and now it is 97.0 degrees, pulse rate 93, respiratory rate 21, blood pressure 122/76, and saturation 99%. HEAD AND NECK: Oral exam, no thrush. Eye exam, no icterus. Neck is supple. No JVD. No sinus tenderness. Normocephalic. No facial droop. No neck stiffness. HEART: Regular. No gallop or murmur. No friction rub. ABDOMEN: Soft. Positive bowel sounds. Nontender. LUNGS: Clear bilaterally. No definite rales. SKIN: No rash or dermatitis. MUSCULOSKELETAL: No effusion or contractures. Lower extremities without cellulitis. PERIPHERAL VASCULAR: No cyanosis or gangrene. RECTAL: Deferred. GENITOURINARY: No Reese. LINES: Line sites are without phlebitis. NEUROLOGIC: Intact. Nonfocal. LABORATORY AND DIAGNOSTIC DATA: Laboratory data are as follows. White count 2.6, hemoglobin 10.7, and platelet count 78,000. Creatinine 0.6 and sodium 130. UA was 2-4 white blood cells. Urine culture is negative. Blood culture is pending. Chest x-ray has been negative x2. LFTs were noted. Cultures, urine and blood are pending. Stool studies are pending. ASSESSMENT AND PLAN: 1. The patient has diarrhea and fevers, possible infectious diarrhea, possible Clostridium difficile. The patient has upper respiratory infection, bronchitis, and likely also has high risk for viral syndrome, possible gastroenteritis. The patient has history of human immunodeficiency virus and acquired immunodeficiency syndrome in the past. At this time, we will continue Rocephin and Flagyl. This will cover Clostridium difficile and also infectious diarrhea. Check stool studies if done, they were ordered. Check cultures and watch temperatures closely. 2. Upper respiratory infection and bronchitis. Continue pulmonary treatment and chest x-ray was negative. 3. Human immunodeficiency virus and acquired immunodeficiency syndrome. Continue antiretroviral therapy. Check CD4 count. The patient is being followed by Dr. Alfonso as an outpatient. 4. Neuropathy. 5. Hypertension. 6. Asthma. 7. Chronic obstructive pulmonary disease. 8. Hepatitis C. 9. 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 10. History of diarrhea. 11. History of abdominal discomfort. 12. History of urinary tract infections. 13. Leukopenia, anemia, and thrombocytopenia. 14. Dehydration, given intravenous fluid hydration. 15. Failure to thrive. 16. Cachexia. 17. Malnutrition. 18. History of methamphetamine use. 19. Allergies to aripiprazole, haloperidol, hydromorphone, metoclopramide, sulfa, prochlorperazine. 20. Case discussed with RN. 21. MAR was noted. 22. Family history noncontributory. 23. No surgery. 24. History of . 25. Skin care protocol. Nidhi Muse M.D. DR: DAGO JOB#: [id number] CC:
[2016-07-03] MEDS: DuoNeb 0.5-3(2.5)mg/3ml neb HHN SCH ×4 (01:44→19:25)
[2016-07-03 04:00] VITALS: BP 124/72
[2016-07-03] MEDS: Promethazine/Codeine 5ml UD ORAL PRN ×2 (04:01→21:29)
[2016-07-03] MEDS: metroNIDAZOLE 500mg 100 ML IVPB SCH ×3 (05:41→21:04)
[2016-07-03 06:58] LABS: MEAN CORPUSCULAR HEMOGLOBIN 29.2 PG (27.0-31.0); MEAN CORPUSCULAR HGB CONC 33.7 G/DL (32.0-36.0); MEAN CORPUSCULAR VOLUME 87 FL (80-99); MEAN PLATELET VOLUME 7.5 FL (6.5-10.1); PLATELET COUNT 75 K/UL (150-450); RED BLOOD COUNT 3.53 M/UL (4.70-6.10); RED CELL DISTRIBUTION WIDTH 12.5 % (11.6-14.8)
[2016-07-03 07:02] LABS: WHITE BLOOD COUNT 2.1 K/UL (4.8-10.8)
[2016-07-03 07:20] LABS: ANION GAP 10 (5-15); CALCIUM 7.8 mg/dL (8.6-10.2); CARBON DIOXIDE 23 mEQ/L (20-30); CHLORIDE 99 mEQ/L (98-107); CREATININE 0.7 mg/dL (0.7-1.2); GLOMERULAR FILTRATION RATE > 60 mL/min (>60); HEMOLYSIS 8; POTASSIUM 3.8 mEQ/L (3.4-4.9); SODIUM 132 mEQ/L (135-145)
[2016-07-03 10:04] VITALS: BP 123/85
[2016-07-03] MEDS: Epzicom tab ORAL SCH (10:07)
[2016-07-03] MEDS: Dolutegravir Sodium 50mg tab ORAL SCH (10:08)
[2016-07-03 11:14] LABS: BAND NEUTROPHILS % (MANUAL) 0 % (0-8); BASOPHILS % (MANUAL) 0 % (0-2); EOSINOPHILS % (MANUAL) 4 % (0-3); HYPOCHROMASIA 1+; LYMPHOCYTES % (MANUAL) 36 % (20-45); NEUTROPHILS % (MANUAL) 53 % (45-75); PLATELET ESTIMATE DECREASED; PLATELET MORPHOLOGY NORMAL; TOTAL CELLS COUNTED 100
[2016-07-03 12:00] VITALS: BP 111/73
[2016-07-03 13:15] LABS: CD3 ABSOLUTE 362 /uL (622-2402); CD4 ABSOLUTE 45 /uL (359-1519); CD8 ABSOLUTE 316 /uL (109-897); LYMPHOCYTES ABSOLUTE 0.5 x10E3/uL (0.7-3.1); LYMPHS 21 % (.); WBC 2.5 x10E3/uL (3.4-10.8)
[2016-07-03] MEDS: cefTRIAXone 1 GM in D5W 55 ML IVPB SCH (14:29)
--- NOTE | 2016-07-03 16:48 | Nephrology Progress Note ---
Assessment/Plan Assessment 1. Febrile diarrhea. 2. Hyponatremia. 3. Hypokalemia. 4. Hypocalcemia. 5. Dehydration. 6. Diarrhea. 7. History of asthma. 8. History of human immunodeficiency virus. 9. History of hepatitis C. Plan plan ivf iv antibiotic mix all ivpb with ns nutritional support replace k Subjective Constitutional: Reports: malaise, weakness HEENT: Reports: no symptoms Genitourinary: Reports: no symptoms Neurologic/Psychiatric: Reports: no symptoms Subjective c/o diarrhea and wt lost has good appetite Objective Objective Last 24 Hour Vital Signs Date Time Temp Pulse Resp B/P Pulse Ox O2 Delivery O2 Flow Rate FiO2 07/03/16 12:46 Room Air 07/03/16 12:46 Room Air 07/03/16 12:00 97.7 92 20 111/73 93 Room Air 07/03/16 10:04 97.7 97 123/85 92 Room Air 07/03/16 08:14 96 20 99 Room Air 07/03/16 08:07 94 18 99 Room Air 07/03/16 08:07 94 18 Room Air 07/03/16 06:11 98.1 07/03/16 04:00 98.1 98 20 124/72 94 Room Air 07/03/16 01:45 81 20 99 Room Air 21 07/03/16 01:30 78 20 96 Room Air 21 07/02/16 23:48 98.0 95 20 121/71 95 Room Air 07/02/16 20:17 98.1 99 19 129/74 95 Room Air 07/02/16 19:45 85 20 98 Room Air 21 07/02/16 19:30 82 20 95 Room Air 21 07/02/16 19:30 82 20 Room Air 21 Intake and Output 07/02/16 07/03/16 19:00 07:00 Intake Total 1215 ml 880 ml Balance 1215 ml 880 ml Intake Oral 360 ml 680 ml IV Total 855 ml 200 ml # Voids 2 4 Laboratory Tests 07/03/16 05:10: White Blood Count 2.1*L, Red Blood Count 3.53L, Hemoglobin 10.3L, Hematocrit 30.6L, Mean Corpuscular Volume 87, Mean Corpuscular Hemoglobin 29.2, Mean Corpuscular Hemoglobin Concent 33.7, Red Cell Distribution Width 12.5, Platelet Count 75L, Mean Platelet Volume 7.5, Neutrophils (%) (Auto) , Lymphocytes (%) ( Auto) , Monocytes (%) (Auto) , Eosinophils (%) (Auto) , Basophils (%) (Auto) , Differential Total Cells Counted 100, Neutrophils % (Manual) 53, Lymphocytes % ( Manual) 36, Monocytes % (Manual) 7, Eosinophils % (Manual) 4H, Basophils % ( Manual) 0, Band Neutrophils 0, Platelet Estimate DecreasedL, Platelet Morphology Normal, Hypochromasia 1+, Sodium Level 132L, Potassium Level 3.8, Chloride Level 99, Carbon Dioxide Level 23, Anion Gap 10, Blood Urea Nitrogen 5L , Creatinine 0.7, Estimat Glomerular Filtration Rate > 60, Glucose Level 84, Calcium Level 7.8L Height (Feet): 5 Height (Inches): 7.00 Weight (Pounds): 100 Objective HEAD AND NECK: Bitemporal wasting. Extraocular movement intact. Pupils are reactive to light and accommodation. Dry mucous membranes. LUNGS: Clear to auscultation. CARDIAC: Regular rate and rhythm. S1 and S2 no murmur. No rub. ABDOMEN: Soft, nontender, and nondistended. He has bilateral right and left lower quadrant pain. No guarding. No rebound. EXTREMITIES: No edema. No clubbing. No cyanosis. EMMANUEL KELSEY July 03, 2016 16:48
[2016-07-03] MEDS: Darunavir 600mg tab ORAL SCH (18:00)
[2016-07-03 18:02] VITALS: BP 121/81
[2016-07-03] MEDS: Premarin tab 0.625MG ORAL SCH (20:00)
[2016-07-03 20:16] VITALS: BP 127/76
--- NOTE | 2016-07-03 21:04 | Pulmonology Progress Note ---
Assessment/Plan Problems: (1) Fever (2) Bronchitis (3) Severe malnutrition (4) Hepatitis C (5) AIDS (6) Homelessness (7) Wasting syndrome Assessment/Plan afebrile check cultures continue antibiotics social service consult check electrolytes on antivirals Subjective ROS Limited/Unobtainable: No Constitutional: Reports: no symptoms HEENT: Repors: no symptoms Allergies: Coded Allergies: HYDROMORPHONE (Verified Allergy, Severe, RASH, 06/30/16) PROCHLORPERAZINE (Verified Allergy, Severe, RASH, 06/30/16) SULFAMETHOXAZOLE (Verified Allergy, Severe, 06/30/16) SULFONYLUREAS (Verified Allergy, Severe, 06/30/16) TRIMETHOPRIM (Verified Allergy, Severe, 06/30/16) METOCLOPRAMIDE (Verified Allergy, Mild, 06/30/16) ARIPIPRAZOLE (Unverified Allergy, Unknown, 06/30/16) HALOPERIDOL (Verified Allergy, Unknown, 06/30/16) Uncoded Allergies: Plastic tape (Allergy, Mild, 06/21/14) Patient states that he gets blisters around it. Objective Last 24 Hour Vital Signs Date Time Temp Pulse Resp B/P Pulse Ox O2 Delivery O2 Flow Rate FiO2 07/03/16 20:16 97.9 97 20 127/76 94 Room Air 07/03/16 19:33 91 20 99 Room Air 07/03/16 19:25 106 20 98 Room Air 07/03/16 18:02 97.5 86 18 121/81 93 Room Air 07/03/16 12:46 Room Air 07/03/16 12:46 Room Air 07/03/16 12:00 97.7 92 20 111/73 93 Room Air 07/03/16 10:04 97.7 97 123/85 92 Room Air 07/03/16 08:14 96 20 99 Room Air 07/03/16 08:07 94 18 99 Room Air 07/03/16 08:07 94 18 Room Air 07/03/16 06:11 98.1 07/03/16 04:00 98.1 98 20 124/72 94 Room Air 07/03/16 01:45 81 20 99 Room Air 21 07/03/16 01:30 78 20 96 Room Air 21 07/02/16 23:48 98.0 95 20 121/71 95 Room Air Intake and Output 07/02/16 07/03/16 19:00 07:00 Intake Total 1215 ml 880 ml Balance 1215 ml 880 ml Intake Oral 360 ml 680 ml IV Total 855 ml 200 ml # Voids 2 4 Objective HEENT: normocephalic, atraumatic Respiratory/Chest: chest wall non-tender, lungs clear Cardiovascular: normal peripheral pulses, normal rate Abdomen: normal bowel sounds, soft, non tender Genitourinary: normal external genitalia Extremities: no cyanosis Skin: no rash 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 Resulted Laboratory Tests 07/03/16 05:10: White Blood Count 2.1*L, Red Blood Count 3.53L, Hemoglobin 10.3L, Hematocrit 30.6L, Mean Corpuscular Volume 87, Mean Corpuscular Hemoglobin 29.2, Mean Corpuscular Hemoglobin Concent 33.7, Red Cell Distribution Width 12.5, Platelet Count 75L, Mean Platelet Volume 7.5, Neutrophils (%) (Auto) , Lymphocytes (%) ( Auto) , Monocytes (%) (Auto) , Eosinophils (%) (Auto) , Basophils (%) (Auto) , Differential Total Cells Counted 100, Neutrophils % (Manual) 53, Lymphocytes % ( Manual) 36, Monocytes % (Manual) 7, Eosinophils % (Manual) 4H, Basophils % ( Manual) 0, Band Neutrophils 0, Platelet Estimate DecreasedL, Platelet Morphology Normal, Hypochromasia 1+, Sodium Level 132L, Potassium Level 3.8, Chloride Level 99, Carbon Dioxide Level 23, Anion Gap 10, Blood Urea Nitrogen 5L , Creatinine 0.7, Estimat Glomerular Filtration Rate > 60, Glucose Level 84, Calcium Level 7.8L Current Medications Medications (Trade) Dose Ordered Sig/Tamar Route PRN Reason Start Time Stop Time Status Last Admin Dose Admin Abacavir/ Lamivudine (Epzicom) 1 tab DAILY ORAL 07/02/16 09:00 08/01/16 08:59 07/03/16 10:07 Acetaminophen (Tylenol) 650 mg Q6H PRN ORAL Mild Pain/Temp > 100.5 07/01/16 00:15 07/31/16 00:14 07/01/16 17:40 Albuterol Sulfate (Proventil) 2.5 mg Q4H PRN HHN Shortness of Breath 07/01/16 00:15 07/06/16 00:14 Albuterol/ Ipratropium (DuoNeb 0.5-3(2.5)mg/3ml) 3 ml Q6HRT HHN 07/01/16 19:00 07/06/16 18:59 07/03/16 19:25 Ceftriaxone Sodium 1 gm/ Dextrose 55 ml @ 110 mls/hr Q24H IVPB 07/01/16 12:00 07/08/16 11:59 07/03/16 14:29 Dapsone 100 mg 100 mg DAILY ORAL 07/02/16 09:00 07/09/16 08:59 07/03/16 10:08 Darunavir (Prezista) 600 mg TWICE A DAY ORAL 07/03/16 18:00 08/02/16 17:59 Dolutegravir Sodium (Tivicay) 50 mg DAILY ORAL 07/02/16 09:00 08/01/16 08:59 07/03/16 10:08 Estrogens Conjugated (Premarin) 0.625 mg DAILY ORAL 07/03/16 20:00 08/02/16 19:59 07/03/16 20:00 Metronidazole (Flagyl) 100 ml @ 100 mls/hr Q8HR IVPB 07/01/16 14:00 07/08/16 13:59 07/03/16 15:21 Morphine Sulfate (Morphine Sulfate) 2 mg Q4H PRN IVP Severe Pain (Pain Scale 7-10) 07/01/16 11:00 07/08/16 10:59 07/03/16 05:41 Ondansetron HCl 4 mg 4 mg Q6H PRN IVP Nausea & Vomiting 07/01/16 00:45 07/31/16 00:44 07/03/16 11:08 Promethazine HCl/ Codeine (Phenergan with Codeine) 5 ml Q4H PRN ORAL For Cough 07/01/16 16:00 07/31/16 15:59 07/03/16 04:01 Sodium Chloride (Sodium Chloride 1000ml bag) 1,000 ml @ 100 mls/hr Q10H IV 07/01/16 01:00 07/31/16 00:59 07/02/16 12:02 Zolpidem Tartrate (Ambien) 5 mg HSPRN PRN ORAL Insomnia 07/01/16 00:15 07/31/16 00:14 PAULO JOHNSON July 03, 2016 21:04
--- NOTE | 2016-07-03 23:58 | Cardiology Progress Note ---
Assessment/Plan Assessment/Plan The patient is seen and examined, full consult will be dictated. Objective Last 24 Hour Vital Signs Date Time Temp Pulse Resp B/P Pulse Ox O2 Delivery O2 Flow Rate FiO2 07/03/16 21:41 97.9 07/03/16 20:16 97.9 97 20 127/76 94 Room Air 07/03/16 19:33 91 20 99 Room Air 07/03/16 19:25 106 20 98 Room Air 07/03/16 18:02 97.5 86 18 121/81 93 Room Air 07/03/16 12:46 Room Air 07/03/16 12:46 Room Air 07/03/16 12:00 97.7 92 20 111/73 93 Room Air 07/03/16 10:04 97.7 97 123/85 92 Room Air 07/03/16 08:14 96 20 99 Room Air 07/03/16 08:07 94 18 99 Room Air 07/03/16 08:07 94 18 Room Air 07/03/16 04:00 98.1 98 20 124/72 94 Room Air 07/03/16 01:45 81 20 99 Room Air 21 07/03/16 01:30 78 20 96 Room Air 21 Intake and Output 07/02/16 07/03/16 19:00 07:00 Intake Total 1215 ml 880 ml Balance 1215 ml 880 ml Intake Oral 360 ml 680 ml IV Total 855 ml 200 ml # Voids 2 4 Laboratory Tests Test 07/03/16 05:10 White Blood Count 2.1 K/UL (4.8-10.8) *L Red Blood Count 3.53 M/UL (4.70-6.10) L Hemoglobin 10.3 G/DL (14.2-18.0) L Hematocrit 30.6 % (42.0-52.0) L Mean Corpuscular Volume 87 FL (80-99) Mean Corpuscular Hemoglobin 29.2 PG (27.0-31.0) Mean Corpuscular Hemoglobin Concent 33.7 G/DL (32.0-36.0) Red Cell Distribution Width 12.5 % (11.6-14.8) Platelet Count 75 K/UL (150-450) L Mean Platelet Volume 7.5 FL (6.5-10.1) Neutrophils (%) (Auto) % (45.0-75.0) Lymphocytes (%) (Auto) % (20.0-45.0) Monocytes (%) (Auto) % (1.0-10.0) Eosinophils (%) (Auto) % (0.0-3.0) Basophils (%) (Auto) % (0.0-2.0) Differential Total Cells Counted 100 Neutrophils % (Manual) 53 % (45-75) Lymphocytes % (Manual) 36 % (20-45) Monocytes % (Manual) 7 % (1-10) Eosinophils % (Manual) 4 % (0-3) H Basophils % (Manual) 0 % (0-2) Band Neutrophils 0 % (0-8) Platelet Estimate Decreased L Platelet Morphology Normal Hypochromasia 1+ Sodium Level 132 mEQ/L (135-145) L Potassium Level 3.8 mEQ/L (3.4-4.9) Chloride Level 99 mEQ/L (98-107) Carbon Dioxide Level 23 mEQ/L (20-30) Anion Gap 10 (5-15) Blood Urea Nitrogen 5 mg/dL (7-23) L Creatinine 0.7 mg/dL (0.7-1.2) Estimat Glomerular Filtration Rate > 60 mL/min (>60) Glucose Level 84 mg/dL (74-106) Calcium Level 7.8 mg/dL (8.6-10.2) L Microbiology Date/Time Source Procedure Growth Status 07/01/16 12:00 Blood Blood Culture - Preliminary NO GROWTH AFTER 24 HOURS Resulted 07/01/16 11:45 Blood Blood Culture - Preliminary NO GROWTH AFTER 24 HOURS Resulted 07/02/16 17:05 Sputum Gram Stain - Final Resulted 07/02/16 17:05 Sputum Sputum Culture Pending Resulted 07/01/16 11:11 Urine,Clean Catch Urine Culture - Preliminary Mixed Gram Positive Organism Resulted 07/01/16 06:00 Rectum Stool Culture - Preliminary NORMAL FECAL ARIE. Resulted TAMARA VIVAR July 03, 2016 23:58
[2016-07-04] MEDS: DuoNeb 0.5-3(2.5)mg/3ml neb HHN SCH ×4 (01:21→19:43)
[2016-07-04 04:00] VITALS: BP 122/82
[2016-07-04] MEDS: metroNIDAZOLE 500mg 100 ML IVPB SCH ×3 (05:18→21:17)
[2016-07-04 08:00] VITALS: BP 118/81
--- NOTE | 2016-07-04 09:02 | Consultation ---
DATE OF CONSULTATION: 07/03/2016 CARDIOLOGY CONSULTATION CONSULTING PHYSICIAN: Pierce Barros M.D. REFERRING PHYSICIAN: Dotty Whiting M.D. REASON FOR CONSULTATION: Management of tachycardia. HISTORY OF PRESENT ILLNESS: The patient is a very unfortunate 50-year-old gentleman, who presents to the hospital with the fever, shortness of breath, and generalized weakness. The patient has history of HIV with high viral load plus low CD4 count. He started having fever, nonproductive cough, shortness of breath, and generalized weakness. The patient presented to the emergency department at the recommendation of his primary care physician, Dr. Abdi. He has also been reporting some nausea as well as diarrhea. In the emergency department, the patient was evaluated and the vital signs of blood pressure 130/83, heart rate of 106, and low grade temperature of 99 degrees. Cardiology consultation was made at the request of Dr. Whiting for management of tachycardia. PAST MEDICAL HISTORY: History of hypertension, history of of COPD, history of AIDS, , history of chronic diarrhea, history of heart disease, the detail of which is unknown. PAST SURGICAL HISTORY: None. MEDICATIONS: Serostim 4 mg p.o. q.6 hours, albuterol 1 puff inhaler every six hours as needed for wheezing, bupropion 150 mg by mouth twice a day q.12 hours, Prezista 600 mg by mouth twice daily, hydrochloride 50 mg p.o. nightly, Truvada 1 tablet p.o. daily, estradiol 1 transdermal patch twice weekly, Premarin 1.25 mg daily, Isentress 400 mg by mouth twice daily, Norvir 100 mg p.o. twice daily, and 6 mg subcutaneous daily. ALLERGIES: To hydromorphone, promethazine, Bactrim, Sulfonylurea, trimethoprim, metoclopramide, and haloperidol. FAMILY HISTORY: No premature coronary artery disease or . REVIEW OF SYSTEMS: HEENT: Denies any headache, diplopia, or blurred vision. Constitutional: Has generalized weakness as well as fever and chills and night sweats. Cardiovascular: Denies any chest pain, has some shortness of breath with the other symptoms. Denies any PND, orthopnea, leg swelling, palpitations, syncope. Pulmonary: Complaining of nonproductive cough and shortness of breath and wheezing. Gastrointestinal: Nausea and diarrhea, but no vomiting or abdominal pain. Genitourinary: Denies any hematuria, dysuria, or incontinence. Neurology: Denies any motor dysfunction, sensory deficit, or altered speech. PHYSICAL EXAMINATION: VITAL SIGNS: Blood pressure is 130/83, pulse of 106, respirations 22, pulse oximetry of 97% on room air, and temperature 99.0 degrees Fahrenheit. GENERAL: The patient is a very unfortunate 50-year-old gentleman, in no apparent respiratory distress and chronically ill. HEENT: Atraumatic and normocephalic. Anicteric. Pupils are equal, round, reactive to light and accommodation. Extraocular muscles intact. NECK: JVP is less than 5 cm. No carotid bruits. Carotid upstroke is 2+ bilaterally. CARDIOVASCULAR: Normal S1 and S2. Regular rate and rhythm. Tachycardic. No murmurs, gallops, or rubs. LUNGS: Clear to auscultation bilaterally. ABDOMEN: Soft, nontender, and nondistended. No hepatosplenomegaly. Positive bowel sounds. EXTREMITIES: No evidence of edema, clubbing, or cyanosis. LABORATORY FINDINGS: WBC 5.4, hemoglobin 12.3, hematocrit 34.5, and platelet count 75,000. Sodium was 127, potassium 3.0, chloride 91, bicarbonates 23, BUN of 9, creatinine 0.8, and glucose is 89, calcium is 8.2. Toxicology is positive for urine and positive for amphetamine, otherwise negative. Imaging data, chest x-ray showed no acute cardiopulmonary disease, left arm PICC IS seen. ASSESSMENT AND PLAN: 1. The patient is a very unfortunate 50-year-old gentleman, who is seen in Cardiology consultation at the request of Dr. Whiting. 2. Sinus tachycardia most likely due to underlying infection. sinus tachycardia disorder at this time intravenous antibiotic, hydration and Mucinex. 3. Human immunodeficiency virus disease. 4. Thrombocytopenia. I would like to thank, Dr. Whiting, for involving me in the care of this patient. Pierce Barros M.D. DR: Kati JOB#: [id number] CC:
[2016-07-04] MEDS: Epzicom tab ORAL SCH (10:03)
[2016-07-04] MEDS: Darunavir 600mg tab ORAL SCH ×2 (10:04→17:38)
[2016-07-04] MEDS: Premarin tab 0.625MG ORAL SCH (10:04)
[2016-07-04] MEDS: Dolutegravir Sodium 50mg tab ORAL SCH (10:05)
[2016-07-04] MEDS: Morphine Sulfate 2mg/ml Inj IVP PRN (10:16)
[2016-07-04 12:34] VITALS: BP 123/80
[2016-07-04] MEDS: cefTRIAXone 1 GM in D5W 55 ML IVPB SCH (12:44)
--- NOTE | 2016-07-04 13:03 | Infectious Diseases Prog Note ---
Assessment/Plan Assessment/Plan ASSESSMENT AND PLAN: 1. viral syndrome, gastroenteritis, stool culture negative, ?c.diff., hypokalemia, dehydration - clinically better - fevers resolved - continue rocephin and flagyl 2. Upper respiratory infection and bronchitis. Continue pulmonary treatment and chest x-ray was negative. 3. Human immunodeficiency virus and acquired immunodeficiency syndrome. Continue antiretroviral therapy. Check CD4 count. The patient is being followed by Dr. Alfonso as an outpatient. D/w pharmacy about anti-retroviral therapy. 4. Neuropathy. 5. Hypertension. 6. Asthma. 7. Chronic obstructive pulmonary disease. 8. Hepatitis C. 9. 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 10. History of diarrhea. 11. History of abdominal discomfort. 12. History of urinary tract infections. 13. Leukopenia, anemia, and thrombocytopenia. 14. Dehydration, given intravenous fluid hydration. 15. Failure to thrive. 16. Cachexia. 17. Malnutrition. 18. History of methamphetamine use. 19. Allergies to aripiprazole, haloperidol, hydromorphone, metoclopramide, sulfa, prochlorperazine. 20. Case discussed with RN. 21. MAR was noted. 22. Family history noncontributory. 23. No surgery hx 24. History of depression, bipolar disease, pancreatitis, mtn 25. Skin care protocol. Subjective Constitutional: Reports: fatigue, other - + generalized weakness, Denies: fever HEENT: Denies: congestion Respiratory: Denies: shortness of breath Cardiovascular: Denies: chest pain Gastrointestinal/Abdominal: Reports: diarrhea - less diarrhea , Denies: nausea , vomiting Genitourinary: Reports: other - no blancas, Denies: dysuria, hematuria Neurologic: Denies: headache Psychiatric: Denies: depression Skin: Denies: rash Hematologic: Denies: bleeding Musculoskeletal: Denies: pain Allergies: Coded Allergies: HYDROMORPHONE (Verified Allergy, Severe, RASH, 06/30/16) PROCHLORPERAZINE (Verified Allergy, Severe, RASH, 06/30/16) SULFAMETHOXAZOLE (Verified Allergy, Severe, 06/30/16) SULFONYLUREAS (Verified Allergy, Severe, 06/30/16) TRIMETHOPRIM (Verified Allergy, Severe, 06/30/16) METOCLOPRAMIDE (Verified Allergy, Mild, 06/30/16) ARIPIPRAZOLE (Unverified Allergy, Unknown, 06/30/16) HALOPERIDOL (Verified Allergy, Unknown, 06/30/16) Uncoded Allergies: Plastic tape (Allergy, Mild, 06/21/14) Patient states that he gets blisters around it. Objective Vital Signs Last 24 Hour Vital Signs Date Time Temp Pulse Resp B/P Pulse Ox O2 Delivery O2 Flow Rate FiO2 07/04/16 12:34 96.5 80 20 123/80 98 Room Air 07/04/16 08:00 97.4 97 20 118/81 98 Room Air 07/04/16 06:40 Room Air 07/04/16 06:40 Room Air 07/04/16 04:00 97.5 93 19 122/82 95 Room Air 07/04/16 01:21 Room Air 07/04/16 01:21 Room Air 07/03/16 21:41 97.9 07/03/16 20:16 97.9 97 20 127/76 94 Room Air 07/03/16 19:33 91 20 99 Room Air 07/03/16 19:25 106 20 98 Room Air 07/03/16 18:02 97.5 86 18 121/81 93 Room Air Height (Feet): 5 Height (Inches): 7.00 Weight (Pounds): 100 General Appearance: no acute distress HEENT: normocephalic, atraumatic, anicteric, mucous membranes moist, PERRL, EOMI, pharynx normal, supple, no JVD, thrush Respiratory/Chest: lungs clear, normal breath sounds, no respiratory distress, no accessory muscle use Cardiovascular: normal rate, regular rhythm, no gallop/murmur, no JVD Abdomen: normal bowel sounds, soft, non tender, no organomegaly, non distended Genitourinary: other - no blancas, no cva pain Extremities: no cyanosis Skin: no rash 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, alert, oriented x 3, responsive Lymphatic: no neck adenopathy Musculoskeletal: no effusion Objective chest x-ray - no acute process (reviewed) Microbiology Date/Time Source Procedure Growth Status 07/02/16 17:05 Sputum Gram Stain - Final Complete 07/02/16 17:05 Sputum Culture - Final Shruti Albicans Complete Microbiology Date/Time Source Procedure Growth Status 07/01/16 12:00 Blood Blood Culture - Preliminary NO GROWTH AFTER 48 HOURS Resulted 07/02/16 17:05 Sputum Gram Stain - Final Complete 07/02/16 17:05 Sputum Culture - Final Shruti Albicans Complete 07/01/16 11:11 Urine,Clean Catch Urine Culture - Final Mixed Gram Positive Organism Complete 07/01/16 06:00 Rectum Stool Culture - Final NO SALMONELLA,SHIGELLA,OR CAMPYLOBACT... Complete Labs Test 07/02/16 08:50 07/03/16 05:10 White Blood Count 2.5 x10E3/uL (3.4-10.8) 2.1 K/UL (4.8-10.8) Red Blood Count 3.58 M/UL (4.70-6.10) 3.53 M/UL (4.70-6.10) Hemoglobin 10.7 G/DL (14.2-18.0) 10.3 G/DL (14.2-18.0) Hematocrit 31.0 % (42.0-52.0) 30.6 % (42.0-52.0) Mean Corpuscular Volume 86 FL (80-99) 87 FL (80-99) Mean Corpuscular Hemoglobin 29.8 PG (27.0-31.0) 29.2 PG (27.0-31.0) Mean Corpuscular Hemoglobin Concent 34.5 G/DL (32.0-36.0) 33.7 G/DL (32.0-36.0) Red Cell Distribution Width 12.6 % (11.6-14.8) 12.5 % (11.6-14.8) Platelet Count 78 K/UL (150-450) 75 K/UL (150-450) Mean Platelet Volume 6.9 FL (6.5-10.1) 7.5 FL (6.5-10.1) Neutrophils (%) (Auto) % (45.0-75.0) % (45.0-75.0) Lymphocytes (%) (Auto) % (20.0-45.0) % (20.0-45.0) Monocytes (%) (Auto) % (1.0-10.0) % (1.0-10.0) Eosinophils (%) (Auto) % (0.0-3.0) % (0.0-3.0) Basophils (%) (Auto) % (0.0-2.0) % (0.0-2.0) Differential Total Cells Counted 100 100 Neutrophils % (Manual) 59 % (45-75) 53 % (45-75) Lymphocytes % (Manual) 19 % (20-45) 36 % (20-45) Monocytes % (Manual) 18 % (1-10) 7 % (1-10) Eosinophils % (Manual) 3 % (0-3) 4 % (0-3) Basophils % (Manual) 0 % (0-2) 0 % (0-2) Band Neutrophils 1 % (0-8) 0 % (0-8) Lymphocytes 21 % (.) Nucleated Red Blood Cells (.) Platelet Estimate Decreased Decreased Platelet Morphology Normal Normal Hypochromasia 1+ 1+ Anisocytosis 1+ Spherocytes 1+ Sodium Level 130 mEQ/L (135-145) 132 mEQ/L (135-145) Potassium Level 3.0 mEQ/L (3.4-4.9) 3.8 mEQ/L (3.4-4.9) Chloride Level 98 mEQ/L (98-107) 99 mEQ/L (98-107) Carbon Dioxide Level 21 mEQ/L (20-30) 23 mEQ/L (20-30) Anion Gap 11 (5-15) 10 (5-15) Blood Urea Nitrogen 5 mg/dL (7-23) 5 mg/dL (7-23) Creatinine 0.6 mg/dL (0.7-1.2) 0.7 mg/dL (0.7-1.2) Estimat Glomerular Filtration Rate > 60 mL/min (>60) > 60 mL/min (>60) Glucose Level 119 mg/dL (74-106) 84 mg/dL (74-106) Calcium Level 7.8 mg/dL (8.6-10.2) 7.8 mg/dL (8.6-10.2) Total Bilirubin 0.3 mg/dL (0.0-1.2) Aspartate Amino Transf (AST/SGOT) 60 U/L (5-40) Alanine Aminotransferase (ALT/SGPT) 29 U/L (3-41) Alkaline Phosphatase 84 U/L (40-129) Total Protein 5.9 g/dL (6.6-8.7) Albumin 2.1 g/dL (3.5-5.2) Globulin 3.8 g/dL Albumin/Globulin Ratio 0.5 (1.0-2.7) Absolute Lymphocytes (Cell Immunity 0.5 x10E3/uL (0.7-3.1) Percent CD3 Cells 72.4 % (57.5-86.2) Absolute CD3 Count 362 /uL (622-2402) Percent CD4 Cells 8.9 % (30.8-58.5) Absolute CD4 Count 45 /uL (359-1519) T-Lymphocyte CD4/CD8 Ratio 0.14 (0.92-3.72) Percent CD8 Cells 63.1 % (12.0-35.5) Absolute CD8 Count 316 /uL (109-897) Current Medications Medications (Trade) Dose Ordered Sig/Tamra Route PRN Reason Start Time Stop Time Status Last Admin Dose Admin Abacavir/ Lamivudine (Epzicom) 1 tab DAILY ORAL 07/02/16 09:00 08/01/16 08:59 07/04/16 10:03 Acetaminophen (Tylenol) 650 mg Q6H PRN ORAL Mild Pain/Temp > 100.5 07/01/16 00:15 07/31/16 00:14 07/01/16 17:40 Albuterol Sulfate (Proventil) 2.5 mg Q4H PRN HHN Shortness of Breath 07/01/16 00:15 07/06/16 00:14 Albuterol/ Ipratropium (DuoNeb 0.5-3(2.5)mg/3ml) 3 ml Q6HRT HHN 07/01/16 19:00 07/06/16 18:59 07/03/16 19:25 Ceftriaxone Sodium 1 gm/ Dextrose 55 ml @ 110 mls/hr Q24H IVPB 07/01/16 12:00 07/08/16 11:59 07/04/16 12:44 Dapsone 100 mg 100 mg DAILY ORAL 07/02/16 09:00 07/09/16 08:59 07/04/16 10:03 Darunavir (Prezista) 600 mg TWICE A DAY ORAL 07/03/16 18:00 08/02/16 17:59 07/04/16 10:04 Dolutegravir Sodium (Tivicay) 50 mg DAILY ORAL 07/02/16 09:00 08/01/16 08:59 07/04/16 10:05 Estrogens Conjugated (Premarin) 0.625 mg DAILY ORAL 07/03/16 20:00 08/02/16 19:59 07/04/16 10:04 Metronidazole (Flagyl) 100 ml @ 100 mls/hr Q8HR IVPB 07/01/16 14:00 07/08/16 13:59 07/04/16 05:18 Morphine Sulfate (Morphine Sulfate) 2 mg Q4H PRN IVP Severe Pain (Pain Scale 7-10) 07/01/16 11:00 07/08/16 10:59 07/04/16 10:16 Ondansetron HCl 4 mg 4 mg Q6H PRN IVP Nausea & Vomiting 07/01/16 00:45 07/31/16 00:44 07/03/16 11:08 Promethazine HCl/ Codeine (Phenergan with Codeine) 5 ml Q4H PRN ORAL For Cough 07/01/16 16:00 07/31/16 15:59 07/03/16 21:29 Sodium Chloride (Sodium Chloride 1000ml bag) 1,000 ml @ 100 mls/hr Q10H IV 07/01/16 01:00 07/31/16 00:59 07/03/16 21:15 Zolpidem Tartrate (Ambien) 5 mg HSPRN PRN ORAL Insomnia 07/01/16 00:15 07/31/16 00:14 JOSE RAMIREZ July 04, 2016 13:03
[2016-07-04] MEDS ORDERED: DAPSONE100 M1 ORAL (13:25)
[2016-07-04] MEDS ORDERED: PREMARIN0.625 MG ORAL (13:25)
[2016-07-04 16:00] VITALS: BP 121/77
[2016-07-04] MEDS: Fluconazole 100mg tab ORAL SCH (17:36)
--- NOTE | 2016-07-04 18:20 | Pulmonology Progress Note ---
Assessment/Plan Problems: (1) Fever (2) Bronchitis (3) Severe malnutrition (4) Hepatitis C (5) AIDS (6) Homelessness (7) Wasting syndrome Assessment/Plan afebrile check cultures continue antibiotics social service consult check electrolytes on antivirals pt will be a difficult placement, because 1- He is between sexes and will require a private room 2- He is home less, and any placement will be [facility]termaker 3- He is not the easiest pt to deal with I don't think that Dr. Alfonso would be of any help in placing him. Pt is followed by him for years and still homeless. He has a suite case that is behind a garbage dump behind the home depo in [place]. If Dr. Alfonso was able to find him a suitable place. He would have done by now. Subjective ROS Limited/Unobtainable: No Constitutional: Reports: no symptoms HEENT: Repors: no symptoms Respiratory: Reports: no symptoms Allergies: Coded Allergies: HYDROMORPHONE (Verified Allergy, Severe, RASH, 06/30/16) PROCHLORPERAZINE (Verified Allergy, Severe, RASH, 06/30/16) SULFAMETHOXAZOLE (Verified Allergy, Severe, 06/30/16) SULFONYLUREAS (Verified Allergy, Severe, 06/30/16) TRIMETHOPRIM (Verified Allergy, Severe, 06/30/16) METOCLOPRAMIDE (Verified Allergy, Mild, 06/30/16) ARIPIPRAZOLE (Unverified Allergy, Unknown, 06/30/16) HALOPERIDOL (Verified Allergy, Unknown, 06/30/16) Uncoded Allergies: Plastic tape (Allergy, Mild, 06/21/14) Patient states that he gets blisters around it. Objective Last 24 Hour Vital Signs Date Time Temp Pulse Resp B/P Pulse Ox O2 Delivery O2 Flow Rate FiO2 07/04/16 16:00 97.7 88 20 121/77 98 Room Air 07/04/16 13:20 Room Air 07/04/16 13:20 Room Air 07/04/16 12:34 96.5 80 20 123/80 98 Room Air 07/04/16 08:00 97.4 97 20 118/81 98 Room Air 07/04/16 06:40 Room Air 07/04/16 06:40 Room Air 07/04/16 04:00 97.5 93 19 122/82 95 Room Air 07/04/16 01:21 Room Air 07/04/16 01:21 Room Air 07/03/16 21:41 97.9 07/03/16 20:16 97.9 97 20 127/76 94 Room Air 07/03/16 19:33 91 20 99 Room Air 07/03/16 19:25 106 20 98 Room Air Intake and Output 07/03/16 07/04/16 18:59 06:59 Intake Total 595 ml 1520 ml Balance 595 ml 1520 ml Intake Oral 595 ml 720 ml IV Total 0 ml 800 ml # Voids 3 Objective HEENT: normocephalic, atraumatic Respiratory/Chest: chest wall non-tender, lungs clear Cardiovascular: normal peripheral pulses, normal rate Abdomen: normal bowel sounds, soft, non tender Genitourinary: normal external genitalia Extremities: no cyanosis Skin: no rash Neurologic/Psychiatric: environmental services aide II-XII grossly normal Lymphatic: no neck adenopathy Microbiology Date/Time Source Procedure Growth Status 07/02/16 17:05 Sputum Gram Stain - Final Complete 07/02/16 17:05 Sputum Culture - Final Shruti Albicans Complete Current Medications Medications (Trade) Dose Ordered Sig/Tamar Route PRN Reason Start Time Stop Time Status Last Admin Dose Admin Abacavir/ Lamivudine (Epzicom) 1 tab DAILY ORAL 07/02/16 09:00 08/01/16 08:59 07/04/16 10:03 Acetaminophen (Tylenol) 650 mg Q6H PRN ORAL Mild Pain/Temp > 100.5 07/01/16 00:15 07/31/16 00:14 07/01/16 17:40 Albuterol Sulfate (Proventil) 2.5 mg Q4H PRN HHN Shortness of Breath 07/01/16 00:15 07/06/16 00:14 Albuterol/ Ipratropium (DuoNeb 0.5-3(2.5)mg/3ml) 3 ml Q6HRT HHN 07/01/16 19:00 07/06/16 18:59 07/03/16 19:25 Ceftriaxone Sodium 1 gm/ Dextrose 55 ml @ 110 mls/hr Q24H IVPB 07/01/16 12:00 07/08/16 11:59 07/04/16 12:44 Dapsone 100 mg 100 mg DAILY ORAL 07/02/16 09:00 07/09/16 08:59 07/04/16 10:03 Darunavir (Prezista) 600 mg TWICE A DAY ORAL 07/03/16 18:00 08/02/16 17:59 07/04/16 17:38 Dolutegravir Sodium (Tivicay) 50 mg DAILY ORAL 07/02/16 09:00 08/01/16 08:59 07/04/16 10:05 Estrogens Conjugated (Premarin) 0.625 mg DAILY ORAL 07/03/16 20:00 08/02/16 19:59 07/04/16 10:04 Fluconazole (Diflucan) 100 mg DAILY ORAL 07/04/16 14:00 07/11/16 13:59 07/04/16 17:36 Metronidazole (Flagyl) 100 ml @ 100 mls/hr Q8HR IVPB 07/01/16 14:00 07/08/16 13:59 07/04/16 14:08 Morphine Sulfate (Morphine Sulfate) 2 mg Q4H PRN IVP Severe Pain (Pain Scale 7-10) 07/01/16 11:00 07/08/16 10:59 07/04/16 10:16 Ondansetron HCl 4 mg 4 mg Q6H PRN IVP Nausea & Vomiting 07/01/16 00:45 07/31/16 00:44 07/04/16 14:06 Promethazine HCl/ Codeine (Phenergan with Codeine) 5 ml Q4H PRN ORAL For Cough 07/01/16 16:00 07/31/16 15:59 07/03/16 21:29 Sodium Chloride (Sodium Chloride 1000ml bag) 1,000 ml @ 100 mls/hr Q10H IV 07/01/16 01:00 07/31/16 00:59 07/03/16 21:15 Zolpidem Tartrate (Ambien) 5 mg HSPRN PRN ORAL Insomnia 07/01/16 00:15 07/31/16 00:14 PAULO JOHNSON July 04, 2016 18:20
--- NOTE | 2016-07-04 19:57 | Nephrology Progress Note ---
Assessment/Plan Assessment 1. Febrile diarrhea. 2. Hyponatremia. 3. Hypokalemia. 4. Hypocalcemia. 5. Dehydration. 6. Diarrhea. 7. History of asthma. 8. History of human immunodeficiency virus. 9. History of hepatitis C. Plan plan ivf iv antibiotic mix all ivpb with ns nutritional support replace k Subjective Constitutional: Reports: malaise, weakness HEENT: Reports: no symptoms Genitourinary: Reports: no symptoms Neurologic/Psychiatric: Reports: no symptoms Subjective c/o diarrhea and cough very weak has good appetite Objective Objective Last 24 Hour Vital Signs Date Time Temp Pulse Resp B/P Pulse Ox O2 Delivery O2 Flow Rate FiO2 07/04/16 19:50 84 15 97 Room Air 07/04/16 19:43 90 16 98 Room Air 07/04/16 16:00 97.7 88 20 121/77 98 Room Air 07/04/16 13:20 Room Air 07/04/16 13:20 Room Air 07/04/16 12:34 96.5 80 20 123/80 98 Room Air 07/04/16 08:00 97.4 97 20 118/81 98 Room Air 07/04/16 06:40 Room Air 07/04/16 06:40 Room Air 07/04/16 04:00 97.5 93 19 122/82 95 Room Air 07/04/16 01:21 Room Air 07/04/16 01:21 Room Air 07/03/16 21:41 97.9 07/03/16 20:16 97.9 97 20 127/76 94 Room Air Intake and Output 07/03/16 07/04/16 19:00 07:00 Intake Total 595 ml 1520 ml Balance 595 ml 1520 ml Intake Oral 595 ml 720 ml IV Total 0 ml 800 ml # Voids 3 Height (Feet): 5 Height (Inches): 7.00 Weight (Pounds): 100 Objective HEAD AND NECK: Bitemporal wasting. Extraocular movement intact. Pupils are reactive to light and accommodation. Dry mucous membranes. LUNGS: Clear to auscultation. CARDIAC: Regular rate and rhythm. S1 and S2 no murmur. No rub. ABDOMEN: Soft, nontender, and nondistended. He has bilateral right and left lower quadrant pain. No guarding. No rebound. EXTREMITIES: No edema. No clubbing. No cyanosis. EMMANUEL KELSEY July 04, 2016 19:57
[2016-07-04 20:00] VITALS: BP 121/85
[2016-07-05] VITALS: BP 115/74
[2016-07-05] MEDS: DuoNeb 0.5-3(2.5)mg/3ml neb HHN SCH ×2 (01:00→07:30)
[2016-07-05 04:00] VITALS: BP 112/80
[2016-07-05] MEDS: metroNIDAZOLE 500mg 100 ML IVPB SCH (05:06)
[2016-07-05 08:00] VITALS: BP 101/65
[2016-07-05] MEDS: Epzicom tab ORAL SCH (09:07)
[2016-07-05] MEDS: Premarin tab 0.625MG ORAL SCH (09:07)
[2016-07-05] MEDS: Dolutegravir Sodium 50mg tab ORAL SCH (09:07)
[2016-07-05] MEDS: Fluconazole 100mg tab ORAL SCH (09:07)
[2016-07-05] MEDS: Darunavir 600mg tab ORAL SCH (09:07)
[2016-07-05] MEDS ORDERED: NS 275ml ONE (09:44)
[2016-07-05] MEDS ORDERED: Tubing IV Secondary IV ONE (09:44)
--- NOTE | 2016-07-05 22:15 | Pulmonology Progress Note ---
Assessment/Plan Problems: (1) Fever (2) Bronchitis (3) Severe malnutrition (4) Hepatitis C (5) AIDS (6) Homelessness (7) Wasting syndrome Assessment/Plan pt had a bed at a assisted living facility. The discharge order was canceled. today pt singed out AMA to go live on the [address]. Subjective ROS Limited/Unobtainable: No Allergies: Coded Allergies: HYDROMORPHONE (Verified Allergy, Severe, RASH, 06/30/16) PROCHLORPERAZINE (Verified Allergy, Severe, RASH, 06/30/16) SULFAMETHOXAZOLE (Verified Allergy, Severe, 06/30/16) SULFONYLUREAS (Verified Allergy, Severe, 06/30/16) TRIMETHOPRIM (Verified Allergy, Severe, 06/30/16) METOCLOPRAMIDE (Verified Allergy, Mild, 06/30/16) ARIPIPRAZOLE (Unverified Allergy, Unknown, 06/30/16) HALOPERIDOL (Verified Allergy, Unknown, 06/30/16) Uncoded Allergies: Plastic tape (Allergy, Mild, 06/21/14) Patient states that he gets blisters around it. Objective Last 24 Hour Vital Signs Date Time Temp Pulse Resp B/P Pulse Ox O2 Delivery O2 Flow Rate FiO2 07/05/16 08:00 97.3 81 18 101/65 91 Room Air 07/05/16 07:30 88 18 95 Room Air 07/05/16 07:30 Room Air 07/05/16 04:00 97.2 96 18 112/80 Room Air 07/05/16 01:55 Room Air 07/05/16 01:55 Room Air 07/05/16 00:00 97.0 88 18 115/74 97 Room Air Intake and Output 07/04/16 07/05/16 19:00 07:00 Intake Total 1215 ml Balance 1215 ml Intake Oral 960 ml IV Total 255 ml # Voids 5 4 Objective HEENT: normocephalic, atraumatic Respiratory/Chest: chest wall non-tender, lungs clear Cardiovascular: normal peripheral pulses, normal rate Abdomen: normal bowel sounds, soft, non tender Genitourinary: normal external genitalia Extremities: no cyanosis Skin: no rash Neurologic/Psychiatric: learning center coordinator II-XII grossly normal Lymphatic: no neck adenopathy PAULO JOHNSON July 05, 2016 22:15
--- NOTE | 2016-07-06 18:45 | Discharge Summary ---
DATE OF ADMISSION: 06/30/2016 DATE OF DISCHARGE: 07/04/2016 PRE-ADMITTING DIAGNOSES: Including, 1. Hypokalemia. 2. Febrile diarrhea. 3. Hyponatremia. 4. Hypocalcemia. 5. Dehydration. 6. Hepatitis C. 7. Acquired immune deficiency syndrome. 8. Asthma. COURSE OF HOSPITAL ADMISSION: The patient is an unfortunate 50-year-old transgender male, who presented to the emergency room complaining of intractable diarrhea and bronchitis, was admitted to the hospital for IV hydration and IV antibiotics. The patient was seen by truck guard and Infectious Disease. The patient was started on proper intravenous antibiotics. The patient yesterday afternoon when I saw him, he was still complaining of generalized weakness and having bloody diarrhea, but was significantly improved. The patient basically after my visit decided to AMA from the hospital. The patient left the hospital without any consent. He was discharged. He probably will visit his primary medical doctor, Dr. Jin Alfonso as an outpatient. CONDITION UPON DISCHARGE: Stable. DISPOSITION: Home. DIET: Diet is going to be as tolerated. Dotty Whiting M.D. DR: JEANNIE JOB#: [id number] CC:
== END 2016-07-05 09:45 | disposition left against medical advice (07) | DRG 391 ==
LOC: EMR 21:29 → 4W 22:19 → EDBEDREQ 22:29
DX: A08.4 Viral intestinal infection, unspecified (principal); B20 Human immunodeficiency virus [HIV] disease; E43 Unspecified severe protein-calorie malnutrition; R64 Cachexia; D69.6 Thrombocytopenia, unspecified; G61.81 Chronic inflammatory demyelinating polyneuritis; E87.1 Hypo-osmolality and hyponatremia; Z68.1 Body mass index [BMI] 19.9 or less, adult; E87.6 Hypokalemia; B19.20 Unspecified viral hepatitis C without hepatic coma; J45.909 Unspecified asthma, uncomplicated; I10 Essential (primary) hypertension; Z88.6 Allergy status to analgesic agent; Z88.3 Allergy status to other anti-infective agents; Z88.2 Allergy status to sulfonamides; Z88.8 Allergy status to other drugs, medicaments and biological substances; E83.51 Hypocalcemia; R00.0 Tachycardia, unspecified; Z59.0 Homelessness; F31.9 Bipolar disorder, unspecified; J40 Bronchitis, not specified as acute or chronic; F15.21 Other stimulant dependence, in remission; R62.7 Adult failure to thrive
CPT/HCPCS: 36415; 71010; 80048; 80053; 80300; 81001; 81003; 83690; 85007; 85025; 86360; 87040; 87045; 87070; 87086; 87205; 94640; 94664; J2405; J7620; J8499

== ENCOUNTER 2016-10-21 02:02 | Emergency (ER) | payer MEDICARE, MEDICAID ==
[~2016-10-21] VITALS: Ht 170.2 cm; Wt 56.7 kg
[~2016-10-21 02:02] MED LIST changes: +DAPSONE100 M1 ORAL; +PREMARIN0.625 MG ORAL
[2016-10-21] MEDS ORDERED: CLINDAMYCIN HC300 MG ORAL (02:41)
[2016-10-21] MEDS ORDERED: IBUPROFEN600 MG ORAL (02:41)
--- NOTE | 2016-10-21 02:42 | Emergency Room Report ---
History of Present Illness General Chief Complaint: General Complaint Source: Patient Present Illness HPI This is a 50-year-old male with a history of MRSA infection the past. Also history of methamphetamine abuse. He presents with chief complaint of a spider bite. Complaining of pain to the left ankle. Redness. No drainage. Onset for last couple days but no fever or chills. No nausea no vomiting. Pain is 10 out of 10. Denies any other complaint. Walking or movement made worse. Holding still made it better. Allergies: Coded Allergies: HYDROMORPHONE (Verified Allergy, Severe, RASH, 06/30/16) PROCHLORPERAZINE (Verified Allergy, Severe, RASH, 06/30/16) SULFAMETHOXAZOLE (Verified Allergy, Severe, 06/30/16) SULFONYLUREAS (Verified Allergy, Severe, 06/30/16) TRIMETHOPRIM (Verified Allergy, Severe, 06/30/16) METOCLOPRAMIDE (Verified Allergy, Mild, 06/30/16) ARIPIPRAZOLE (Unverified Allergy, Unknown, 06/30/16) HALOPERIDOL (Verified Allergy, Unknown, 06/30/16) Uncoded Allergies: Plastic tape (Allergy, Mild, 06/21/14) Patient states that he gets blisters around it. Patient History Past Medical History: see triage record, old chart reviewed Past Surgical History: other Pertinent Family History: none Social History: Reports: smoking, drug use Immunizations: other Reviewed Nursing Documentation: PMH: Agreed, PSxH: Agreed Nursing Documentation-PM Past Medical History: No History, Except For Hx Hypertension: Yes Hx Asthma: Yes Hx COPD: Yes Hx Cancer: No Hx Gastrointestinal Problems: Yes History Of Psychiatric Problem: Yes - Bipolar and schizoaffective. Hx Neurological Problems: No Hx Headaches: Yes Hx Weakness: Yes Hx Fatigue: Yes Review of Systems Eye: Denies: eye pain, blurred vision ENT: Denies: ear pain, nose congestion, throat swelling Respiratory: Denies: cough, shortness of breath Cardiovascular: Denies: chest pain, palpitations Gastrointestinal: Denies: abdominal pain, diarrhea, nausea, vomiting Musculoskeletal: Denies: back pain, joint pain Skin: Denies: rash Neurological: Denies: headache, numbness Endocrine: Denies: increased thirst, increased urine Hematologic/Lymphatic: Denies: easy bruising All Other Systems: negative except mentioned in HPI Physical Exam Vital Signs Date Time Temp Pulse Resp B/P (MAP) Pulse Ox O2 Delivery O2 Flow Rate FiO2 10/21/16 02:08 99.0 106 20 171/95 96 Room Air vitals with hypertension Sp02 EP Interpretation: reviewed, normal General Appearance: well appearing, no apparent distress, alert Head: normocephalic, atraumatic Eyes: bilateral eye PERRL, bilateral eye EOMI ENT: hearing grossly normal, normal pharynx Neck: full range of motion, supple, no meningismus Respiratory: chest non-tender, lungs clear, normal breath sounds Cardiovascular #1: regular rate, rhythm, no murmur Gastrointestinal: normal bowel sounds, non tender, no mass, no organomegaly, no bruit, non-distended Musculoskeletal: back normal, gait/station normal, normal range of motion, tender - Left ankle medially with abrasion and small area of erythema. Tender to palpation. No crepitus. No abscess. Full range of motion of the ankle. Psychiatric: mood/affect normal, other - Patient is very jittery Skin: warm/dry Medical Decision Making Diagnostic Impression: Primary Impression: Cellulitis of left ankle Additional Impressions: Drug abuse Hypertension Qualified Codes: I10 - Essential (primary) hypertension ER Course Patient presents with cellulitis of his ankle. No evidence of abscess. Nothing to I&D at this moment in time. No evidence of septic joint. Patient walking without difficulty. Most likely MRSA. We'll discharge home. Denies injecting drugs. Last Vital Signs Date Time Temp Pulse Resp B/P (MAP) Pulse Ox O2 Delivery O2 Flow Rate FiO2 10/21/16 02:08 99.0 106 20 171/95 96 Room Air Status: improved Disposition: HOME, SELF-CARE Condition: Stable Scripts Ibuprofen* (MOTRIN*) 600 Mg Tablet 600 MG ORAL Q8H Y for For Pain, #30 TAB 0 Refills Prov: CONSUELO DE DIOS M.D. 10/21/16 Clindamycin Hcl (CLINDAMYCIN HCL) 300 Mg Capsule 300 MG ORAL THREE TIMES A DAY, #21 CAP Prov: CONSUELO DE DIOS M.D. 10/21/16 Referrals: NOT CHOSEN IPA/,REFERRING (PCP) Additional Instructions: Stop using drugs. Followup with your DrCorona in the week. Keep wound clean. Clean with hydrogen peroxide and then apply antibiotic ointment. Return if symptom worsen. CONSUELO DE DIOS M.D. Oct 21, 2016 02:42
[2016-10-21] MEDS ORDERED: Clindamycin 150mg cap ORAL ONE (02:45)
[2016-10-21 03:04] VITALS: BP 128/88
== END 2016-10-21 03:06 | disposition home or self-care (01) ==
LOC: EMR 02:29
DX: L03.116 Cellulitis of left lower limb (principal); F19.10 Other psychoactive substance abuse, uncomplicated; I10 Essential (primary) hypertension; F31.9 Bipolar disorder, unspecified; F25.9 Schizoaffective disorder, unspecified; J44.9 Chronic obstructive pulmonary disease, unspecified; F17.200 Nicotine dependence, unspecified, uncomplicated; Z88.6 Allergy status to analgesic agent; Z86.14 Personal history of Methicillin resistant Staphylococcus aureus infection; Z88.2 Allergy status to sulfonamides; Z88.8 Allergy status to other drugs, medicaments and biological substances
CPT/HCPCS: 99284

== ENCOUNTER 2016-10-22 18:50 | Inpatient (IN) | payer MEDICARE, MEDICAID ==
[~2016-10-22] VITALS: Ht 170.2 cm; Wt 54.4 kg
[~2016-10-22 18:50] MED LIST changes: +CLINDAMYCIN HC300 MG ORAL; +IBUPROFEN600 MG ORAL
--- NOTE | 2016-10-22 19:01 | Emergency Room Report ---
History of Present Illness General Chief Complaint: Skin Rash/Abscess Source: EMS (Sudha Crowe) Present Illness HPI 50 YO Male presents to the ED c/o pain, swelling, and erythema of Right elbow, right shoulder, left medial ankle, s/p fall 2 days ago, and spider bite on the ankle x 1 week. denies fevers or chills. hx of HIV. (Suhda Crowe) HPI He also is complaining of pain in his R elbow with swelling. Unclear if trauma there. See above hx. Pain is severe in ankle and elbow, both radiate towards body. Difficulty with ambulation. (Erik Sadler M.D.) Allergies: Coded Allergies: HYDROMORPHONE (Verified Allergy, Severe, RASH, 06/30/16) PROCHLORPERAZINE (Verified Allergy, Severe, RASH, 06/30/16) SULFAMETHOXAZOLE (Verified Allergy, Severe, 06/30/16) SULFONYLUREAS (Verified Allergy, Severe, 06/30/16) TRIMETHOPRIM (Verified Allergy, Severe, 06/30/16) METOCLOPRAMIDE (Verified Allergy, Mild, 06/30/16) ACETAMINOPHEN (Unverified Allergy, Unknown, 10/22/16) ARIPIPRAZOLE (Unverified Allergy, Unknown, 06/30/16) HALOPERIDOL (Verified Allergy, Unknown, 06/30/16) HYDROCODONE (Unverified Allergy, Unknown, 10/22/16) MEPERIDINE (Unverified Allergy, Unknown, 10/22/16) Uncoded Allergies: Plastic tape (Allergy, Mild, 06/21/14) Patient states that he gets blisters around it. Patient History Past Medical History: see triage record, HIV Past Surgical History: none Pertinent Family History: none Reviewed Nursing Documentation: PMH: Agreed, PSxH: Agreed (Sudha Crowe) Nursing Documentation-PMH Past Medical History: No History, Except For Hx Cardiac Problems: No - HIV + Hx Hypertension: Yes Hx Asthma: Yes Hx COPD: Yes Hx Cancer: No Hx Gastrointestinal Problems: Yes History Of Psychiatric Problem: Yes Hx Neurological Problems: No Hx Headaches: Yes Hx Weakness: Yes Hx Fatigue: Yes (Sudha Crowe P.ACorona) Review of Systems All Other Systems: negative except mentioned in HPI (Sudha Crowe P.A.) Physical Exam Vital Signs Date Time Temp Pulse Resp B/P (MAP) Pulse Ox O2 Delivery O2 Flow Rate FiO2 10/22/16 18:37 99.9 92 16 173/88 98 Room Air Sp02 EP Interpretation: reviewed, normal General Appearance: alert, GCS 15, non-toxic, mild distress, thin, Chronically Ill Head: normocephalic, atraumatic Eyes: bilateral eye normal inspection, bilateral eye PERRL ENT: hearing grossly normal, normal voice Neck: full range of motion, no bony tend Respiratory: lungs clear, normal breath sounds, speaking full sentences Cardiovascular #1: regular rate, rhythm, normal capillary refill Cardiovascular #2: 2+ radial (R), 2+ radial (L), 2+ dorsalis pedis (R), 2+ dorsalis pedis (L) Gastrointestinal: normal bowel sounds, non tender, soft, no guarding, no rebound Rectal: deferred Musculoskeletal: back normal, tender - TTP to the right shoulder with painful ROM, TTP, swelling, inflammation and erythema to the right elbow, painful ROM. Neurologic: alert, oriented x3, responsive, motor strength/tone normal, sensory intact, speech normal Psychiatric: judgement/insight normal, memory normal, mood/affect normal Skin: no rash, warm/dry, well hydrated, other - erythema, increased temperature to palpation to the right medial forearm and right elbow, there is also erythema and circular lesion noted to the medial left ankle, no palpable fluctuance, scab noted, lesion approx 0.3cm in diameter. , abrasions - right knee, no crusting no evidence of secondary infection. (Sudha Crowe P.A.) Medical Decision Making PA Attestation Dr. Still is my supervising Physician whom patient management has been discussed with. (Sudha Crowe P.A.) Diagnostic Impression: Primary Impression: Cellulitis Qualified Codes: L03.113 - Cellulitis of right upper limb Additional Impressions: History of HIV infection Pancytopenia Hypokalemia Hyponatremia ER Course Pt. presents to the ED c/o pain, swelling, and erythema of Right elbow, right shoulder, left medial ankle, s/p fall 2 days ago, and spider bite on the ankle x 1 week. denies fevers or chills. hx of HIV. Ddx considered but are not limited to cellulitis, fracture, d/L, gout,contusion , Sprain/Strain/Spasm, abrasion, septic joint, sepsis just to name a few Vital signs: are WNL, pt. is afebrile H&PE are most consistent with Cellulitis of the right forearm, and left medial ankle, no evidence of abscess at this time, musculoskeletal injury s/p fall will do imaging to r/o fractures---- erythema, increased temperature to palpation to the right medial forearm and right elbow, there is also erythema and circular lesion noted to the medial left ankle, no palpable fluctuance, scab noted, lesion approx 0.3cm in diameter. ORDERS: - CBC: Pancytopenia -CMP: hypokalemia, hyponatremia, elevated liver enzymes -lactic acid: 1.5 -Blood Cultures x 2 : Pending - Troponins: WNL less than 0.3 -CK-MB: elevated 10.4 - X-ray Right elbow 3 views -Positive for fx due to presence of posterior and anterior fat pad, negative for Dislocation, suspicious for osteo due to periosteal elevation, per preliminary read in ED by Dr. Still - interpretation is scribed by PA. - X-ray Right Shoulder 3 views -Negative for Fx, Dislocation, or significant soft tissue injury, per preliminary read in ED by Dr. Still - interpretation is scribed by PA. ED INTERVENTIONS: -IV acess -1000cc NS Bolus - Vancomycin, Unasyn IV -Right arm posterior Splint applied by pollution control technician. Pt. remains neurovascularly intact. - KCL 40Meq PO -IBU 600 for pain DISPOSITION: at this time pt. will be admitted to Dr Leach for Cellulitis, right elbow fracture, and immune compromise/ Pancytopenia. Dr. Leach agreed to admit the pt. and to continue pt. care management. Labs Test 10/22/16 19:30 White Blood Count 3.9 K/UL (4.8-10.8) Red Blood Count 3.34 M/UL (4.70-6.10) Hemoglobin 11.4 G/DL (14.2-18.0) Hematocrit 32.1 % (42.0-52.0) Mean Corpuscular Volume 96 FL (80-99) Mean Corpuscular Hemoglobin 34.0 PG (27.0-31.0) Mean Corpuscular Hemoglobin Concent 35.4 G/DL (32.0-36.0) Red Cell Distribution Width 13.9 % (11.6-14.8) Platelet Count 64 K/UL (150-450) Mean Platelet Volume 7.6 FL (6.5-10.1) Neutrophils (%) (Auto) 72.0 % (45.0-75.0) Lymphocytes (%) (Auto) 12.5 % (20.0-45.0) Monocytes (%) (Auto) 11.3 % (1.0-10.0) Eosinophils (%) (Auto) 3.1 % (0.0-3.0) Basophils (%) (Auto) 1.2 % (0.0-2.0) Sodium Level 133 mEQ/L (135-145) Potassium Level 3.0 mEQ/L (3.4-4.9) Chloride Level 98 mEQ/L (98-107) Carbon Dioxide Level 19 mEQ/L (20-30) Anion Gap 16 (5-15) Blood Urea Nitrogen 17 mg/dL (7-23) Creatinine 0.7 mg/dL (0.7-1.2) Estimat Glomerular Filtration Rate > 60 mL/min (>60) Glucose Level 93 mg/dL (74-106) Lactic Acid Level 1.40 mmol/L (0.66-2.22) Calcium Level 8.0 mg/dL (8.6-10.2) Total Bilirubin 1.2 mg/dL (0.0-1.2) Direct Bilirubin 0.5 mg/dL (0.1-0.3) Aspartate Amino Transf (AST/SGOT) 104 U/L (5-40) Alanine Aminotransferase (ALT/SGPT) 95 U/L (3-41) Alkaline Phosphatase 78 U/L (40-129) Total Creatine Kinase 174 U/L (38-174) Creatine Kinase MB 10.4 ng/mL (< 6.7) Creatine Kinase MB Relative Index 5.9 Troponin I < 0.30 ng/mL (<=0.30) Total Protein 5.4 g/dL (6.6-8.7) Albumin 2.7 g/dL (3.5-5.2) Globulin 2.7 g/dL Albumin/Globulin Ratio 1.0 (1.0-2.7) (Sudha Crowe P.A.) ER Course I agree with above assessment. Scribe documentation reviewed by me and are accurate, Erik Sadler MD. Antibiotics begun. Splint applied by tech. Position good. Distal neurovasc normal as checked by me. Contacted Dr. Leach for admission. Contacted Dr. Eason for orthopedic consultation. (Erik Sadler M.D.) Last Vital Signs Date Time Temp Pulse Resp B/P (MAP) Pulse Ox O2 Delivery O2 Flow Rate FiO2 10/22/16 18:37 99.9 92 16 173/88 98 Room Air (Sudha Crowe) Disposition: ADMITTED INPATIENT Condition: Serious Sudha Crowe Oct 22, 2016 19:01 Erik Sadler M.D. Oct 23, 2016 12:41
[2016-10-22] MEDS ORDERED: Unasyn 3gm Inj IVPB ONE (19:15)
[2016-10-22] MEDS: Vancomycin 1 GM in NS 275 ML IV ONE ×2 (19:15→20:36)
[2016-10-22 19:30] VITALS: BP 173/88
[2016-10-22] MEDS ORDERED: Vancomycin 1gm inj IVPB ONE (19:46)
[2016-10-22] MEDS ORDERED: Ampicillin/Sulbactam Sod 3 GM in NS 110 ML IVPB ONE (20:00)
[2016-10-22 20:11] LABS: MEAN CORPUSCULAR HGB CONC 35.4 G/DL (32.0-36.0); MEAN CORPUSCULAR VOLUME 96 FL (80-99); MEAN PLATELET VOLUME 7.6 FL (6.5-10.1); PLATELET COUNT 64 K/UL (150-450); RED BLOOD COUNT 3.34 M/UL (4.70-6.10); RED CELL DISTRIBUTION WIDTH 13.9 % (11.6-14.8); WHITE BLOOD COUNT 3.9 K/UL (4.8-10.8)
[2016-10-22 20:12] LABS: BASOPHILS % (AUTO) 1.2 % (0.0-2.0); EOSINOPHILS % (AUTO) 3.1 % (0.0-3.0); LYMPHOCYTES % (AUTO) 12.5 % (20.0-45.0); MONOCYTES % (AUTO) 11.3 % (1.0-10.0)
[2016-10-22 20:25] LABS: TROPONIN I < 0.30 ng/mL (<=0.30)
[2016-10-22 20:30] LABS: ALANINE AMINOTRANSFERASE 95 U/L (3-41); ANION GAP 16 (5-15); ASPARTATE AMINO TRANSFERASE 104 U/L (5-40); CARBON DIOXIDE 19 mEQ/L (20-30); CHLORIDE 98 mEQ/L (98-107); CREATININE 0.7 mg/dL (0.7-1.2); GLOMERULAR FILTRATION RATE > 60 mL/min (>60); HEMOLYSIS 28; SODIUM 133 mEQ/L (135-145); TOTAL PROTEIN 5.4 g/dL (6.6-8.7)
[2016-10-22 20:40] LABS: CKMB 10.4 ng/mL (< 6.7)
[2016-10-22 20:57] LABS: BILIRUBIN,DIRECT 0.5 mg/dL (0.1-0.3)
[2016-10-22 23:00] VITALS: BP 132/74
[2016-10-23] VITALS (7 sets, daily range): BP systolic 134–183; BP diastolic 66–106
[2016-10-23] MEDS ORDERED: Morphine Sulfate 2mg/ml Inj IM PRN (01:30)
[2016-10-23] MEDS ORDERED: Tetanus/Diptheria/Pertussis Vaccine 0.5ml Syr IM ONE (01:45)
[2016-10-23] MEDS ORDERED: Albuterol 90mcg Inhaler 8gm INH PRN (01:45)
[2016-10-23] MEDS: NS w/KCl 20mEq 1,000 ML IV SCH ×2 (02:33→21:25)
[2016-10-23] MEDS: Premarin tab 0.625MG ORAL SCH (09:55)
[2016-10-23] MEDS: BuPROPion SR 150mg tab ORAL SCH ×2 (09:56→20:04)
[2016-10-23] MEDS: Cefepime HCl 2 GM in D5W 110 ML IVPB SCH ×2 (09:57→20:04)
[2016-10-23] MEDS ORDERED: Vancomycin 1250mg/D5W 250ml IVPB ONE (10:00)
--- NOTE | 2016-10-23 12:34 | Infectious Diseases Prog Note ---
Assessment/Plan Assessment/Plan Full consult to follow: A) 1) right arm cellulitis/left ankle 2) ? osteo right elbow 3) ? fracture right arm/elbow 4) hiv, aids, depression P) 1) vancomycin and cefepime, anti-retrovirals 2) check imaging 3) check labs 4) thank you Subjective Allergies: Coded Allergies: HYDROMORPHONE (Verified Allergy, Severe, RASH, 06/30/16) PROCHLORPERAZINE (Verified Allergy, Severe, RASH, 06/30/16) SULFAMETHOXAZOLE (Verified Allergy, Severe, 06/30/16) SULFONYLUREAS (Verified Allergy, Severe, 06/30/16) TRIMETHOPRIM (Verified Allergy, Severe, 06/30/16) METOCLOPRAMIDE (Verified Allergy, Mild, 06/30/16) ACETAMINOPHEN (Unverified Allergy, Unknown, 10/22/16) ARIPIPRAZOLE (Unverified Allergy, Unknown, 06/30/16) HALOPERIDOL (Verified Allergy, Unknown, 06/30/16) HYDROCODONE (Unverified Allergy, Unknown, 10/22/16) MEPERIDINE (Unverified Allergy, Unknown, 10/22/16) Uncoded Allergies: Plastic tape (Allergy, Mild, 06/21/14) Patient states that he gets blisters around it. Objective Vital Signs Last 24 Hour Vital Signs Date Time Temp Pulse Resp B/P (MAP) Pulse Ox O2 Delivery O2 Flow Rate FiO2 10/23/16 12:03 97.5 71 19 154/90 95 Nasal Cannula 2.0 10/23/16 08:23 97.4 75 20 150/89 95 Nasal Cannula 2.0 10/23/16 08:06 72 20 Room Air 10/23/16 04:00 97.7 79 18 134/81 91 Room Air 10/23/16 00:40 98.9 82 20 139/66 96 Room Air 10/22/16 23:26 99.5 85 18 132/74 98 Room Air 10/22/16 23:00 99.5 85 18 132/74 98 Room Air 10/22/16 19:30 99.9 16 173/88 98 Room Air 10/22/16 18:37 99.9 92 16 173/88 98 Room Air Height (Feet): 5 Height (Inches): 7.00 Weight (Pounds): 120 Laboratory Tests Test 10/22/16 19:30 White Blood Count 3.9 K/UL (4.8-10.8) L Red Blood Count 3.34 M/UL (4.70-6.10) L Hemoglobin 11.4 G/DL (14.2-18.0) L Hematocrit 32.1 % (42.0-52.0) L Mean Corpuscular Volume 96 FL (80-99) Mean Corpuscular Hemoglobin 34.0 PG (27.0-31.0) H Mean Corpuscular Hemoglobin Concent 35.4 G/DL (32.0-36.0) Red Cell Distribution Width 13.9 % (11.6-14.8) Platelet Count 64 K/UL (150-450) L Mean Platelet Volume 7.6 FL (6.5-10.1) Neutrophils (%) (Auto) 72.0 % (45.0-75.0) Lymphocytes (%) (Auto) 12.5 % (20.0-45.0) L Monocytes (%) (Auto) 11.3 % (1.0-10.0) H Eosinophils (%) (Auto) 3.1 % (0.0-3.0) H Basophils (%) (Auto) 1.2 % (0.0-2.0) Sodium Level 133 mEQ/L (135-145) L Potassium Level 3.0 mEQ/L (3.4-4.9) L Chloride Level 98 mEQ/L (98-107) Carbon Dioxide Level 19 mEQ/L (20-30) L Anion Gap 16 (5-15) H Blood Urea Nitrogen 17 mg/dL (7-23) Creatinine 0.7 mg/dL (0.7-1.2) Estimat Glomerular Filtration Rate > 60 mL/min (>60) Glucose Level 93 mg/dL (74-106) Lactic Acid Level 1.40 mmol/L (0.66-2.22) Calcium Level 8.0 mg/dL (8.6-10.2) L Total Bilirubin 1.2 mg/dL (0.0-1.2) Direct Bilirubin 0.5 mg/dL (0.1-0.3) H Aspartate Amino Transf (AST/SGOT) 104 U/L (5-40) H Alanine Aminotransferase (ALT/SGPT) 95 U/L (3-41) H Alkaline Phosphatase 78 U/L (40-129) Total Creatine Kinase 174 U/L (38-174) Creatine Kinase MB 10.4 ng/mL (< 6.7) H Creatine Kinase MB Relative Index 5.9 Troponin I < 0.30 ng/mL (<=0.30) Total Protein 5.4 g/dL (6.6-8.7) L Albumin 2.7 g/dL (3.5-5.2) L Globulin 2.7 g/dL Albumin/Globulin Ratio 1.0 (1.0-2.7) Current Medications Medications (Trade) Dose Ordered Sig/Tamar Route PRN Reason Start Time Stop Time Status Last Admin Dose Admin Albuterol Sulfate (Proventil MDI) 1 puff Q6H PRN INH Shortness of Breath 10/23/16 01:45 11/22/16 01:44 Bupropion HCl (Wellbutrin SR) 150 mg EVERY 12 HOURS ORAL 10/23/16 09:00 11/22/16 08:59 10/23/16 09:56 Cefepime HCl 2 gm/ Dextrose 110 ml @ 220 mls/hr EVERY 12 HOURS IVPB 10/23/16 09:00 10/30/16 08:59 10/23/16 09:57 Clonidine HCl (Catapres) 0.1 mg Q4H PRN ORAL For High Blood Pressure 10/23/16 01:30 11/22/16 01:29 Dapsone (Dapsone) 100 mg DAILY ORAL 10/23/16 09:00 10/30/16 08:59 10/23/16 09:55 Diphenhydramine HCl (Benadryl) 50 mg QHS ORAL 10/23/16 21:00 11/22/16 20:59 Estrogens Conjugated (Premarin) 1.25 mg DAILY ORAL 10/23/16 09:00 11/22/16 08:59 10/23/16 09:55 Ibuprofen (Motrin) 600 mg Q8H PRN ORAL For Pain 10/23/16 01:45 11/22/16 01:44 Morphine Sulfate (Morphine Sulfate) 2 mg Q4H PRN IM For Pain 10/23/16 01:30 10/30/16 01:29 Non-Formulary Medication (Non-Formulary Med) 1 ea DAILY ORAL 10/23/16 09:00 11/22/16 08:59 UNV Non-Formulary Medication (Non-Formulary Med) 6 ea DAILY SUBQ 10/23/16 09:00 11/22/16 08:59 UNV Raltegravir (Isentress) 400 mg BID ORAL 10/23/16 09:00 11/22/16 08:59 UNV Ritonavir (Norvir) 100 mg BID ORAL 10/23/16 09:00 11/22/16 08:59 UNV Sodium Chloride 1,000 ml @ 50 mls/hr Q20H IV 10/23/16 02:00 11/22/16 01:59 10/23/16 02:33 Vancomycin HCl (Vanco rx to dose) 1 ea DAILY PRN MISC Per rx protocol 10/23/16 06:30 11/22/16 06:29 Vancomycin HCl 1 gm/Dextrose 275 ml @ 183.708 mls/hr Q12H IVPB 10/23/16 22:00 10/28/16 21:59 JOSE RAMIREZ Oct 23, 2016 12:34
[2016-10-23] MEDS: Isentress 400mg tab ORAL SCH ×2 (12:45→18:00)
[2016-10-23] MEDS: Ritonavir 100mg tab ORAL SCH ×2 (12:45→18:00)
--- NOTE | 2016-10-23 12:48 | Diagnostic Imaging Report ---
Indication: Pain Findings: 3 views of the right elbow were obtained. Generalized osteopenia noted. There is no acute fracture or malalignment definitely seen. No definite joint effusion. There is soft tissue swelling. Impression: No acute fracture identified. Soft tissue swelling
--- NOTE | 2016-10-23 12:49 | Diagnostic Imaging Report ---
Indication: Pain Findings: 3 views of the right shoulder were obtained. The glenoid appears eroded and deformed. Findings could be on the basis of a previous trauma or post inflammatory/infectious. There is no acute fracture, malalignment or erosion. The humeral head/acromion interface is narrow. Bones are diffusely osteopenic. Impression: No acute injury identified. Narrowed subacromial space suggestive of rotator cuff pathology. Chronic deformity of the glenoid. .
--- NOTE | 2016-10-23 12:53 | Diagnostic Imaging Report ---
Indication: Chest pain Comparison: 07/01/16 A single view chest radiograph was obtained. Findings: PICC line is stable. Heart size is normal. Some increased interstitial markings are present within the lungs nonspecific. There is chronic erosion of both glenohumeral joints. Impression: Erosive changes of both shoulders. No acute cardiopulmonary disease
--- NOTE | 2016-10-23 14:29 | History and Physical ---
History of Present Illness General Date patient seen: Oct 23, 2016 Reason for Hospitalization: Skin Rash/Abscess Present Illness HPI 50 year old male with hx of HIV, COPD, HTN, presented with right elbow swelling and pain. He is diagnosed to have cellulitis and admitted for further w/u. Allergies: Coded Allergies: HYDROMORPHONE (Verified Allergy, Severe, RASH, 06/30/16) PROCHLORPERAZINE (Verified Allergy, Severe, RASH, 06/30/16) SULFAMETHOXAZOLE (Verified Allergy, Severe, 06/30/16) SULFONYLUREAS (Verified Allergy, Severe, 06/30/16) TRIMETHOPRIM (Verified Allergy, Severe, 06/30/16) METOCLOPRAMIDE (Verified Allergy, Mild, 06/30/16) ACETAMINOPHEN (Unverified Allergy, Unknown, 10/22/16) ARIPIPRAZOLE (Unverified Allergy, Unknown, 06/30/16) HALOPERIDOL (Verified Allergy, Unknown, 06/30/16) HYDROCODONE (Unverified Allergy, Unknown, 10/22/16) MEPERIDINE (Unverified Allergy, Unknown, 10/22/16) Uncoded Allergies: Plastic tape (Allergy, Mild, 06/21/14) Patient states that he gets blisters around it. Medication History Scheduled Bupropion Hcl* (Bupropion Hcl Sr*), 150 MG ORAL EVERY 12 HOURS, (Reported) Clindamycin Hcl (Clindamycin Hcl), 300 MG ORAL THREE TIMES A DAY Dapsone (Dapsone), 100 MG ORAL DAILY Darunavir Ethanolate* (Prezista*), 600 MG PO BID, (Reported) Diphenhydramine HCl (Diphenhydramine HCl), 50 MG PO QHS, (Reported) Emtricitabine/Tenofovir (Truvada Tablet), 1 EACH PO DAILY, (Reported) Estradiol (Estradiol), 1 EACH TD TWICE A WEEK, (Reported) Estrogens Conjugated (Premarin), 0.625 MG ORAL DAILY Estrogens,Conjugated (Premarin), 1.25 MG PO DAILY, (Reported) Raltegravir (Isentress), 400 MG PO BID, (Reported) Ritonavir* (Norvir*), 100 MG PO BID, (Reported) Somatropin (Serostim), 6 MG SQ DAILY, (Reported) Scheduled PRN Albuterol Sulfate* (Proair Hfa*), 1 PUFF INH Q6HR PRN, (Reported) Ibuprofen* (Motrin*), 600 MG ORAL Q8H PRN for For Pain Patient History Healthcare decision maker Resuscitation status Full Code Advanced Directive on File Past Medical/Surgical History Past Medical/Surgical History: (1) 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 (3) AIDS (4) Methamphetamine addiction (5) Transgender incomplete state (6) Bipolar 1 disorder, depressed, moderate Review of Systems Musculoskeletal: Reports: joint pain - right elsob Skin: Reports: rash All Other Systems: negative except mentioned in HPI Physical Exam General Appearance: WD/WN, alert Lines, tubes and drains: peripheral, central line HEENT: normocephalic, atraumatic Neck: non-tender, normal alignment Respiratory/Chest: chest wall non-tender, lungs clear Cardiovascular/Chest: normal peripheral pulses Abdomen: normal bowel sounds Musculoskeletal: atrophy, other Last 24 Hour Vital Signs Date Time Temp Pulse Resp B/P (MAP) Pulse Ox O2 Delivery O2 Flow Rate FiO2 10/23/16 12:03 97.5 71 19 154/90 95 Nasal Cannula 2.0 10/23/16 08:23 97.4 75 20 150/89 95 Nasal Cannula 2.0 10/23/16 08:06 72 20 Room Air 10/23/16 04:00 97.7 79 18 134/81 91 Room Air 10/23/16 00:40 98.9 82 20 139/66 96 Room Air 10/22/16 23:26 99.5 85 18 132/74 98 Room Air 10/22/16 23:00 99.5 85 18 132/74 98 Room Air 10/22/16 19:30 99.9 16 173/88 98 Room Air 10/22/16 18:37 99.9 92 16 173/88 98 Room Air Intake and Output 10/23/16 10/24/16 19:00 07:00 Intake Total 450 ml Output Total 500 ml Balance -50 ml Intake Oral 450 ml Output Urine Total 500 ml # Bowel Movements 2 Laboratory Tests Test 10/22/16 19:30 White Blood Count 3.9 K/UL (4.8-10.8) L Red Blood Count 3.34 M/UL (4.70-6.10) L Hemoglobin 11.4 G/DL (14.2-18.0) L Hematocrit 32.1 % (42.0-52.0) L Mean Corpuscular Volume 96 FL (80-99) Mean Corpuscular Hemoglobin 34.0 PG (27.0-31.0) H Mean Corpuscular Hemoglobin Concent 35.4 G/DL (32.0-36.0) Red Cell Distribution Width 13.9 % (11.6-14.8) Platelet Count 64 K/UL (150-450) L Mean Platelet Volume 7.6 FL (6.5-10.1) Neutrophils (%) (Auto) 72.0 % (45.0-75.0) Lymphocytes (%) (Auto) 12.5 % (20.0-45.0) L Monocytes (%) (Auto) 11.3 % (1.0-10.0) H Eosinophils (%) (Auto) 3.1 % (0.0-3.0) H Basophils (%) (Auto) 1.2 % (0.0-2.0) Sodium Level 133 mEQ/L (135-145) L Potassium Level 3.0 mEQ/L (3.4-4.9) L Chloride Level 98 mEQ/L (98-107) Carbon Dioxide Level 19 mEQ/L (20-30) L Anion Gap 16 (5-15) H Blood Urea Nitrogen 17 mg/dL (7-23) Creatinine 0.7 mg/dL (0.7-1.2) Estimat Glomerular Filtration Rate > 60 mL/min (>60) Glucose Level 93 mg/dL (74-106) Lactic Acid Level 1.40 mmol/L (0.66-2.22) Calcium Level 8.0 mg/dL (8.6-10.2) L Total Bilirubin 1.2 mg/dL (0.0-1.2) Direct Bilirubin 0.5 mg/dL (0.1-0.3) H Aspartate Amino Transf (AST/SGOT) 104 U/L (5-40) H Alanine Aminotransferase (ALT/SGPT) 95 U/L (3-41) H Alkaline Phosphatase 78 U/L (40-129) Total Creatine Kinase 174 U/L (38-174) Creatine Kinase MB 10.4 ng/mL (< 6.7) H Creatine Kinase MB Relative Index 5.9 Troponin I < 0.30 ng/mL (<=0.30) Total Protein 5.4 g/dL (6.6-8.7) L Albumin 2.7 g/dL (3.5-5.2) L Globulin 2.7 g/dL Albumin/Globulin Ratio 1.0 (1.0-2.7) Height (Feet): 5 Height (Inches): 7.00 Weight (Pounds): 120 Medications Current Medications Medications (Trade) Dose Ordered Sig/Tamar Route PRN Reason Start Time Stop Time Status Last Admin Dose Admin Albuterol Sulfate (Proventil MDI) 1 puff Q6H PRN INH Shortness of Breath 10/23/16 01:45 11/22/16 01:44 Bupropion HCl (Wellbutrin SR) 150 mg EVERY 12 HOURS ORAL 10/23/16 09:00 11/22/16 08:59 10/23/16 09:56 Cefepime HCl 2 gm/ Dextrose 110 ml @ 220 mls/hr EVERY 12 HOURS IVPB 10/23/16 09:00 10/30/16 08:59 10/23/16 09:57 Clonidine HCl (Catapres) 0.1 mg Q4H PRN ORAL For High Blood Pressure 10/23/16 01:30 11/22/16 01:29 Dapsone (Dapsone) 100 mg DAILY ORAL 10/23/16 09:00 10/30/16 08:59 10/23/16 09:55 Diphenhydramine HCl (Benadryl) 50 mg QHS ORAL 10/23/16 21:00 11/22/16 20:59 Estrogens Conjugated (Premarin) 1.25 mg DAILY ORAL 10/23/16 09:00 11/22/16 08:59 10/23/16 09:55 Ibuprofen (Motrin) 600 mg Q8H PRN ORAL For Pain 10/23/16 01:45 11/22/16 01:44 Morphine Sulfate (Morphine Sulfate) 2 mg Q4H PRN IM For Pain 10/23/16 01:30 10/30/16 01:29 Non-Formulary Medication (Non-Formulary Med) 1 ea DAILY ORAL 10/23/16 09:00 11/22/16 08:59 UNV Non-Formulary Medication (Non-Formulary Med) 6 ea DAILY SUBQ 10/23/16 09:00 11/22/16 08:59 UNV Raltegravir (Isentress) 400 mg BID ORAL 10/23/16 12:45 11/22/16 12:44 Ritonavir (Norvir) 100 mg BID ORAL 10/23/16 12:45 11/22/16 12:44 Sodium Chloride 1,000 ml @ 50 mls/hr Q20H IV 10/23/16 02:00 11/22/16 01:59 10/23/16 02:33 Vancomycin HCl (Vanco rx to dose) 1 ea DAILY PRN MISC Per rx protocol 10/23/16 06:30 11/22/16 06:29 Vancomycin HCl 1 gm/Dextrose 275 ml @ 183.708 mls/hr Q12H IVPB 10/23/16 22:00 10/28/16 21:59 Assessment/Plan Problem List: (1) Cellulitis ICD Codes: L03.90 - Cellulitis, unspecified SNOMED: 708602491 (2) Chronic inflammatory demyelinating polyneuropathy ICD Codes: G61.81 - Chronic inflammatory demyelinating polyneuropathy SNOMED: 086430607 (3) Wasting syndrome ICD Codes: R64 - Wasting syndrome SNOMED: 932990869 (4) Depression ICD Codes: F32.9 - Depression SNOMED: 63191657 (5) Fever ICD Codes: R50.9 - Fever SNOMED: 223633598 (6) AIDS ICD Codes: B20 - Acquired immunodeficiency syndrome SNOMED: 57286399 (7) Hepatitis C ICD Codes: B19.20 - Viral hepatitis C SNOMED: 25642269 (8) Homelessness ICD Codes: Z59.0 - Homelessness SNOMED: 45755982 Assessment/Plan iv abx check cultures social service consult symptomatic treatment PAULO JOHNSON Oct 23, 2016 14:28
--- NOTE | 2016-10-23 17:55 | History & Physical ---
History and Physical History & Physicial Dictated for Int Med-no. [id number]. MINOR PEDROZA Oct 23, 2016 17:55
[2016-10-23] MEDS: Morphine Sulfate 2mg/ml Inj IVP PRN (20:05)
[2016-10-23 21:08] LABS: APPEARANCE,URINE CLEAR; KETONES,URINE 1+ (NEGATIVE); LEUKOCYTE ESTERASE ,URINE 1+ (NEGATIVE); NITRITE,URINE NEGATIVE (NEGATIVE); PH,URINE 6 (4.5-8.0); PROTEIN,URINE 2+ (NEGATIVE); UROBILINOGEN,URINE 4 MG/DL (0.0-1.0)
[2016-10-23 21:11] LABS: ICTOTEST POSITIVE
[2016-10-23 21:17] LABS: BACTERIA,URINE FEW /HPF
[2016-10-23] MEDS: Vancomycin 1gm/D5W 275ml IVPB SCH ×2 (21:27)
[2016-10-24] VITALS (8 sets, daily range): BP systolic 132–171; BP diastolic 77–98
--- NOTE | 2016-10-24 01:45 | History and Physical Report ---
DATE OF ADMISSION: 10/22/2016 Chief Complaint: This is a 50-year-old white male, who presents with chief complaint of right elbow pain, swelling and redness. History Of Present Illness: Began three days prior to admission. The patient fell striking his right elbow. The patient complains of swelling, pain and redness since that time. The patient also states he has an insect bite of the left ankle. The patient presented to [facility] emergency room. The patient was found to have cellulitis of the right elbow. The patient is admitted for cellulitis of the right elbow. PAST MEDICAL HISTORY: Significant for 1. HIV, diagnosed in 1984. The patient does not know his current T-cell count or viral load. 2. Hepatitis C. 3. Chronic obstructive pulmonary disease. 4. Hypertension. 5. Bipolar disorder, schizoaffective type. PAST SURGICAL HISTORY: Significant for appendectomy. CURRENT MEDICATIONS: 1. Prezcobix daily. 2. Triumeq daily. 3. Wellbutrin 150 mg one tablet p.o. q.12 h. 4. Dapsone 100 mg one tablet p.o. daily. 5. Estradiol patch applied twice weekly. 6. Serostim 6 mg subcutaneously daily. ALLERGIES: 1. Dilaudid. 2. Compazine. 3. Bactrim. 4. Reglan. 5. Tylenol. 6. Haldol. 7. Vicodin. 8. Demerol. 9. Abilify. Social History: The patient is single and is a male to female transsexual. The patient denies tobacco use, having quit in 2011. The patient has occasional alcohol use. Review Of Systems: Constitutional: The patient denies weight loss or weight gain. The patient denies fevers or chills. HEENT: The patient denies ear or throat pain. The patient denies headache. Cardiovascular: The patient denies palpitations or chest pain. Chest: The patient denies wheeze or shortness of breath. Abdomen: The patient denies nausea, vomiting, diarrhea, or constipation. Genitourinary: The patient denies dysuria or increased frequency urination. Neuromuscular: The patient complains of right elbow pain as above. The patient denies seizures or generalized weakness. PHYSICAL EXAMINATION: General: The patient is well developed and well nourished white male, in no apparent distress. Vital Signs: Temperature 98.9 degrees, respirations 20, pulse 82, and blood pressure 139/66. HEENT: Eyes, pupils are equal and responsive to light and accommodation. Extraocular movements are intact. NECK: Supple without lymphadenopathy. Chest: Lungs are clear to auscultation bilaterally without wheezes or rales. Cardiovascular: Regular rate. S1 and S2 normal without murmurs, rubs, or gallops. Abdomen: Soft, nontender, and nondistended. Positive bowel sounds. No evidence of hepatosplenomegaly. Currently, no rebound or guarding noted. Extremities: Negative for clubbing, cyanosis, or edema. Right elbow is in a soft splint. Neurologically: Cranial nerves II through XII are grossly intact without focal deficits. Motor strength is 5/5 bilaterally. Deep tendon reflexes are 2+ plantar. Laboratory And Diagnostic Data: Laboratory studies, WBC 3.9, hemoglobin 11.4, hematocrit 32.1 and platelets 64,000. Sodium 133, potassium 3.0, chloride 98, CO2 19, BUN 17, creatinine 0.7, and glucose 93. AST elevated at 104 and ALT elevated at 95. Troponin less than 0.3. An x-ray of the right elbow revealed soft tissue swelling otherwise, no acute fracture or dislocation. Right shoulder x-ray failed to demonstrate fracture or dislocation. A chest x-ray was reported as no acute disease. ASSESSMENT: This is a 50-year-old white male 1. Right elbow cellulitis. 2. Right elbow pain and swelling. 3. Human immunodeficiency virus. 4. Hepatitis C. 5. Chronic obstructive pulmonary disease. 6. Hypertension. TREATMENT: 1. Right elbow cellulitis/swelling. An Infectious Disease consultation will be obtained with Dr. Muse. The patient has been started empirically on cefepime and vancomycin. We will follow recommendations of Infectious Disease. 2. Human immunodeficiency virus. Continue HAART as above. 3. Hepatitis C. 4. Chronic obstructive pulmonary disease. The patient will be offered albuterol nebulized q.4 h. p.r.n. 5. Hypertension. The patient is currently normotensive. Don Leach M.D. DR: ARTIE JOB#: [id number] CC:
[2016-10-24] MEDS: Morphine Sulfate 2mg/ml Inj IVP PRN ×4 (02:59→17:43)
[2016-10-24 06:53] LABS: MEAN CORPUSCULAR HEMOGLOBIN 34.3 PG (27.0-31.0); MEAN CORPUSCULAR HGB CONC 35.8 G/DL (32.0-36.0); MEAN CORPUSCULAR VOLUME 96 FL (80-99); MEAN PLATELET VOLUME 9.8 FL (6.5-10.1); PLATELET COUNT 60 K/UL (150-450); RED BLOOD COUNT 3.13 M/UL (4.70-6.10); RED CELL DISTRIBUTION WIDTH 13.8 % (11.6-14.8); WHITE BLOOD COUNT 3.1 K/UL (4.8-10.8)
[2016-10-24 07:01] LABS: ANION GAP 8 (5-15); CALCIUM 7.5 mg/dL (8.6-10.2); CARBON DIOXIDE 24 mEQ/L (20-30); CHLORIDE 100 mEQ/L (98-107); CREATININE 0.8 mg/dL (0.7-1.2); GLOMERULAR FILTRATION RATE > 60 mL/min (>60); HEMOLYSIS 0; POTASSIUM 3.1 mEQ/L (3.4-4.9); SODIUM 132 mEQ/L (135-145)
--- NOTE | 2016-10-24 08:30 | Consultation ---
DATE OF CONSULTATION: 10/23/2016 REQUESTING PHYSICIAN: Don Leach M.D. CHIEF COMPLAINT: Right elbow pain. History Of Present Illness: The patient is a pleasant 50-year-old gentleman, who had a mechanical fall where he slipped and fell. He had significant pain. He had imaging studies in the ER, which showed possible anterior fat pad. They were concerned that he may have an occult fracture and he was placed in a splint and Orthopedic consultation was obtained for further care and recommendation. PAST MEDICAL HISTORY: Reviewed in the chart. PAST SURGICAL HISTORY: Reviewed in the chart. MEDICATIONS: Reviewed in the chart. PHYSICAL EXAMINATION: Extremities: Right arm is in the posterior splint. He has minimal swelling of the right lower extremity. He is refusing to have the splint taken off today given he was having a lot of discomfort yesterday. Radial and ulnar pulses +2. Diagnostic Data: Imaging studies showed no obvious fracture. There may be a slight anterior fat pad consistent with right elbow sprain. Discussion: At this point, given the x-rays what I think he probably has is a right acute elbow sprain. If he does have a nondisplaced fracture or hairline fracture the treatment for that would be to begin active range of motion of the right elbow. At this point, what I have discussed with him is maybe considering removing the brace in a couple of weeks and then begin active flexion and extension activities to the right elbow. He is going to be agreeable to that. He can follow up as outpatient next week for referral for outpatient physical therapy. Daniel Eason M.D. DR: CLYDE JOB#: [id number] CC: ENRRIQUE
[2016-10-24] MEDS: Ritonavir 100mg tab ORAL SCH ×2 (09:00→18:00)
[2016-10-24] MEDS: Isentress 400mg tab ORAL SCH ×2 (09:00→18:00)
[2016-10-24] MEDS: Cefepime HCl 2 GM in D5W 110 ML IVPB SCH ×2 (09:06→20:43)
[2016-10-24] MEDS: BuPROPion SR 150mg tab ORAL SCH ×2 (09:07→20:42)
[2016-10-24] MEDS: Premarin tab 0.625MG ORAL SCH (09:07)
[2016-10-24] MEDS: Vancomycin 1gm/D5W 275ml IVPB SCH ×4 (10:17→22:50)
[2016-10-24 10:20] LABS: BAND NEUTROPHILS % (MANUAL) 0 % (0-8); BASOPHILS % (MANUAL) 0 % (0-2); EOSINOPHILS % (MANUAL) 2 % (0-3); LYMPHOCYTES % (MANUAL) 24 % (20-45); NEUTROPHILS % (MANUAL) 62 % (45-75); PLATELET ESTIMATE DECREASED; PLATELET MORPHOLOGY NORMAL; TOTAL CELLS COUNTED 100
[2016-10-24 10:21] LABS: MACROCYTES 1+
--- NOTE | 2016-10-24 10:26 | Consultation ---
Consultation HPI 50-year-old white male, who presents with chief complaint of right elbow pain, swelling and redness. the pt has hx of crystal meth. AH and anxiety. the pt does not endorse si/hi/manic sxs Allergies: Coded Allergies: HYDROMORPHONE (Verified Allergy, Severe, RASH, 06/30/16) PROCHLORPERAZINE (Verified Allergy, Severe, RASH, 06/30/16) SULFAMETHOXAZOLE (Verified Allergy, Severe, 06/30/16) SULFONYLUREAS (Verified Allergy, Severe, 06/30/16) TRIMETHOPRIM (Verified Allergy, Severe, 06/30/16) METOCLOPRAMIDE (Verified Allergy, Mild, 06/30/16) ACETAMINOPHEN (Unverified Allergy, Unknown, 10/22/16) ARIPIPRAZOLE (Unverified Allergy, Unknown, 06/30/16) HALOPERIDOL (Verified Allergy, Unknown, 06/30/16) HYDROCODONE (Unverified Allergy, Unknown, 10/22/16) MEPERIDINE (Unverified Allergy, Unknown, 10/22/16) Uncoded Allergies: Plastic tape (Allergy, Mild, 06/21/14) Patient states that he gets blisters around it. General Appearance: Disheveled, Older, Alert Orientation: Time, Place, Person, Situation Attention Span Description: Fair Mood/Memory: Depressed Affect: Constricted Thought Process: Linear Thought Content: Paranoid to Delusions Perception: Hallucinations, Auditory Speech: Normal in Volume & Rate Intelligence: Average Memory: immediate, recent, remote Insight/ Judgement: Fair Assessment/Plan Status: doing well, stable, progressing Assessment/Plan legal issues, meth dependence. substance induced psychosis Olya Houser M.D. Oct 24, 2016 10:26
--- NOTE | 2016-10-24 13:26 | Infectious Diseases Prog Note ---
Assessment/Plan Assessment/Plan Full consult to follow: A) 1) right arm cellulitis/left ankle cellulitis, fevers 2) hiv, aids, depression 3) mrsa colonization P) 1) vancomycin and cefepime, anti-retrovirals 2) check labs 3) will f/u Subjective Allergies: Coded Allergies: HYDROMORPHONE (Verified Allergy, Severe, RASH, 06/30/16) PROCHLORPERAZINE (Verified Allergy, Severe, RASH, 06/30/16) SULFAMETHOXAZOLE (Verified Allergy, Severe, 06/30/16) SULFONYLUREAS (Verified Allergy, Severe, 06/30/16) TRIMETHOPRIM (Verified Allergy, Severe, 06/30/16) METOCLOPRAMIDE (Verified Allergy, Mild, 06/30/16) ACETAMINOPHEN (Unverified Allergy, Unknown, 10/22/16) ARIPIPRAZOLE (Unverified Allergy, Unknown, 06/30/16) HALOPERIDOL (Verified Allergy, Unknown, 06/30/16) HYDROCODONE (Unverified Allergy, Unknown, 10/22/16) MEPERIDINE (Unverified Allergy, Unknown, 10/22/16) Uncoded Allergies: Plastic tape (Allergy, Mild, 06/21/14) Patient states that he gets blisters around it. Objective Vital Signs Last 24 Hour Vital Signs Date Time Temp Pulse Resp B/P (MAP) Pulse Ox O2 Delivery O2 Flow Rate FiO2 10/24/16 09:37 98.2 10/24/16 08:38 75 18 Nasal Cannula 2.0 10/24/16 08:00 98.2 75 20 154/89 95 Nasal Cannula 2.0 10/24/16 05:30 158/87 10/24/16 04:40 168/88 10/24/16 04:30 98.2 81 19 168/88 96 Room Air 10/24/16 00:00 98.2 82 18 155/85 95 Nasal Cannula 2.0 10/23/16 22:22 177/99 10/23/16 20:17 70 18 Room Air 10/23/16 20:00 97.8 88 18 177/99 95 Room Air 10/23/16 17:47 78 155/100 10/23/16 16:00 97.5 76 20 183/106 96 Nasal Cannula 2.0 Height (Feet): 5 Height (Inches): 7.00 Weight (Pounds): 120 Microbiology Date/Time Source Procedure Growth Status 10/22/16 19:45 Blood Blood Culture - Preliminary NO GROWTH AFTER 24 HOURS Resulted 10/22/16 19:30 Blood Blood Culture - Preliminary NO GROWTH AFTER 24 HOURS Resulted 10/23/16 00:30 Nasal Nares MRSA Culture - Final Staphylococcus Aureus - Mrsa Complete 10/23/16 20:19 Urine,Clean Catch Urine Culture - Preliminary NO GROWTH Resulted Laboratory Tests Test 10/23/16 20:19 10/24/16 06:10 Urine Color Melony Urine Appearance Clear Urine pH 6 (4.5-8.0) Urine Specific [place] 1.015 (1.005-1.035) Urine Protein 2+ (NEGATIVE) H Urine Glucose (UA) Negative (NEGATIVE) Urine Ketones 1+ (NEGATIVE) H Urine Occult Blood 3+ (NEGATIVE) H Urine Nitrite Negative (NEGATIVE) Urine Bilirubin 1+ (NEGATIVE) H Urine Ictotest Positive Urine Urobilinogen 4 MG/DL (0.0-1.0) H Urine Leukocyte Esterase 1+ (NEGATIVE) H Urine RBC 10-15 /HPF (0 - 0) H Urine WBC 2-4 /HPF (0 - 0) Urine Squamous Epithelial Cells None /LPF (NONE/OCC) Urine Bacteria Few /HPF (NONE) White Blood Count 3.1 K/UL (4.8-10.8) L Red Blood Count 3.13 M/UL (4.70-6.10) L Hemoglobin 10.7 G/DL (14.2-18.0) L Hematocrit 30.0 % (42.0-52.0) L Mean Corpuscular Volume 96 FL (80-99) Mean Corpuscular Hemoglobin 34.3 PG (27.0-31.0) H Mean Corpuscular Hemoglobin Concent 35.8 G/DL (32.0-36.0) Red Cell Distribution Width 13.8 % (11.6-14.8) Platelet Count 60 K/UL (150-450) L Mean Platelet Volume 9.8 FL (6.5-10.1) Neutrophils (%) (Auto) % (45.0-75.0) Lymphocytes (%) (Auto) % (20.0-45.0) Monocytes (%) (Auto) % (1.0-10.0) Eosinophils (%) (Auto) % (0.0-3.0) Basophils (%) (Auto) % (0.0-2.0) Differential Total Cells Counted 100 Neutrophils % (Manual) 62 % (45-75) Lymphocytes % (Manual) 24 % (20-45) Monocytes % (Manual) 12 % (1-10) H Eosinophils % (Manual) 2 % (0-3) Basophils % (Manual) 0 % (0-2) Band Neutrophils 0 % (0-8) Platelet Estimate Decreased L Platelet Morphology Normal Macrocytosis 1+ Sodium Level 132 mEQ/L (135-145) L Potassium Level 3.1 mEQ/L (3.4-4.9) L Chloride Level 100 mEQ/L (98-107) Carbon Dioxide Level 24 mEQ/L (20-30) Anion Gap 8 (5-15) Blood Urea Nitrogen 10 mg/dL (7-23) Creatinine 0.8 mg/dL (0.7-1.2) Estimat Glomerular Filtration Rate > 60 mL/min (>60) Glucose Level 99 mg/dL (74-106) Calcium Level 7.5 mg/dL (8.6-10.2) L Current Medications Medications (Trade) Dose Ordered Sig/Tamar Route PRN Reason Start Time Stop Time Status Last Admin Dose Admin Albuterol Sulfate (Proventil MDI) 1 puff Q6H PRN INH Shortness of Breath 10/23/16 01:45 11/22/16 01:44 Bupropion HCl (Wellbutrin SR) 150 mg EVERY 12 HOURS ORAL 10/23/16 09:00 11/22/16 08:59 10/24/16 09:07 Cefepime HCl 2 gm/ Dextrose 110 ml @ 220 mls/hr EVERY 12 HOURS IVPB 10/23/16 09:00 10/30/16 08:59 10/24/16 09:06 Clonidine HCl (Catapres) 0.1 mg Q4H PRN ORAL For High Blood Pressure 10/23/16 01:30 11/22/16 01:29 10/24/16 04:40 Dapsone (Dapsone) 100 mg DAILY ORAL 10/23/16 09:00 10/30/16 08:59 10/24/16 09:08 Diphenhydramine HCl (Benadryl) 50 mg QHS ORAL 10/23/16 21:00 11/22/16 20:59 10/23/16 20:04 Estrogens Conjugated (Premarin) 1.25 mg DAILY ORAL 10/23/16 09:00 11/22/16 08:59 10/24/16 09:07 Ibuprofen (Motrin) 600 mg Q8H PRN ORAL For Pain 10/23/16 01:45 11/22/16 01:44 Morphine Sulfate (Morphine Sulfate) 2 mg Q4H PRN IVP For Pain 10/23/16 19:00 10/30/16 18:59 10/24/16 13:20 Non-Formulary Medication (Non-Formulary Med) 1 ea DAILY ORAL 10/23/16 09:00 11/22/16 08:59 UNV Non-Formulary Medication (Non-Formulary Med) 6 ea DAILY SUBQ 10/23/16 09:00 11/22/16 08:59 UNV Olanzapine (ZyPREXA Zydis) 10 mg BEDTIME ORAL 10/24/16 21:00 11/23/16 20:59 Raltegravir (Isentress) 400 mg BID ORAL 10/23/16 12:45 11/22/16 12:44 Ritonavir (Norvir) 100 mg BID ORAL 10/23/16 12:45 11/22/16 12:44 Sodium Chloride 1,000 ml @ 50 mls/hr Q20H IV 10/23/16 02:00 11/22/16 01:59 10/23/16 21:25 Vancomycin HCl (Vanco rx to dose) 1 ea DAILY PRN MISC Per rx protocol 10/23/16 06:30 11/22/16 06:29 Vancomycin HCl 1 gm/Dextrose 275 ml @ 183.708 mls/hr Q12H IVPB 10/23/16 22:00 10/28/16 21:59 10/24/16 10:17 JOSE RAMIREZ Oct 24, 2016 13:26
--- NOTE | 2016-10-24 14:30 | Pulmonology Progress Note ---
Assessment/Plan Problems: (1) Cellulitis (2) Chronic inflammatory demyelinating polyneuropathy (3) Wasting syndrome (4) Depression (5) Fever (6) AIDS (7) Hepatitis C (8) Homelessness Assessment/Plan IV abx K supplement wound care check electrolytes Subjective ROS Limited/Unobtainable: No Interval Events: no new complains Allergies: Coded Allergies: HYDROMORPHONE (Verified Allergy, Severe, RASH, 06/30/16) PROCHLORPERAZINE (Verified Allergy, Severe, RASH, 06/30/16) SULFAMETHOXAZOLE (Verified Allergy, Severe, 06/30/16) SULFONYLUREAS (Verified Allergy, Severe, 06/30/16) TRIMETHOPRIM (Verified Allergy, Severe, 06/30/16) METOCLOPRAMIDE (Verified Allergy, Mild, 06/30/16) ACETAMINOPHEN (Unverified Allergy, Unknown, 10/22/16) ARIPIPRAZOLE (Unverified Allergy, Unknown, 06/30/16) HALOPERIDOL (Verified Allergy, Unknown, 06/30/16) HYDROCODONE (Unverified Allergy, Unknown, 10/22/16) MEPERIDINE (Unverified Allergy, Unknown, 10/22/16) Uncoded Allergies: Plastic tape (Allergy, Mild, 06/21/14) Patient states that he gets blisters around it. Objective Last 24 Hour Vital Signs Date Time Temp Pulse Resp B/P (MAP) Pulse Ox O2 Delivery O2 Flow Rate FiO2 10/24/16 13:50 98.2 10/24/16 12:00 97.5 82 20 168/87 95 Nasal Cannula 2.0 10/24/16 08:38 75 18 Nasal Cannula 2.0 10/24/16 08:00 98.2 75 20 154/89 95 Nasal Cannula 2.0 10/24/16 05:30 158/87 10/24/16 04:40 168/88 10/24/16 04:30 98.2 81 19 168/88 96 Room Air 10/24/16 00:00 98.2 82 18 155/85 95 Nasal Cannula 2.0 10/23/16 22:22 177/99 10/23/16 20:17 70 18 Room Air 10/23/16 20:00 97.8 88 18 177/99 95 Room Air 10/23/16 17:47 78 155/100 10/23/16 16:00 97.5 76 20 183/106 96 Nasal Cannula 2.0 General Appearance: WD/WN HEENT: normocephalic, atraumatic Respiratory/Chest: chest wall non-tender, lungs clear Cardiovascular: normal peripheral pulses, regular rhythm Abdomen: normal bowel sounds, no organomegaly Extremities: no cyanosis, no clubbing Skin: no lesions Microbiology Date/Time Source Procedure Growth Status 10/22/16 19:45 Blood Blood Culture - Preliminary NO GROWTH AFTER 24 HOURS Resulted 10/22/16 19:30 Blood Blood Culture - Preliminary NO GROWTH AFTER 24 HOURS Resulted 10/23/16 00:30 Nasal Nares MRSA Culture - Final Staphylococcus Aureus - Mrsa Complete 10/23/16 20:19 Urine,Clean Catch Urine Culture - Preliminary NO GROWTH Resulted Laboratory Tests 10/23/16 20:19: Urine Color Melony, Urine Appearance Clear, Urine pH 6, Urine Specific [place] 1.015, Urine Protein 2+H, Urine Glucose (UA) Negative, Urine Ketones 1+H, Urine Occult Blood 3+H, Urine Nitrite Negative, Urine Bilirubin 1+H, Urine Ictotest Positive, Urine Urobilinogen 4H, Urine Leukocyte Esterase 1+H, Urine RBC 10-15H , Urine WBC 2-4, Urine Squamous Epithelial Cells None, Urine Bacteria Few 10/24/16 06:10: White Blood Count 3.1L, Red Blood Count 3.13L, Hemoglobin 10.7L, Hematocrit 30.0L, Mean Corpuscular Volume 96, Mean Corpuscular Hemoglobin 34.3H, Mean Corpuscular Hemoglobin Concent 35.8, Red Cell Distribution Width 13.8, Platelet Count 60L, Mean Platelet Volume 9.8, Neutrophils (%) (Auto) , Lymphocytes (%) ( Auto) , Monocytes (%) (Auto) , Eosinophils (%) (Auto) , Basophils (%) (Auto) , Differential Total Cells Counted 100, Neutrophils % (Manual) 62, Lymphocytes % ( Manual) 24, Monocytes % (Manual) 12H, Eosinophils % (Manual) 2, Basophils % ( Manual) 0, Band Neutrophils 0, Platelet Estimate DecreasedL, Platelet Morphology Normal, Macrocytosis 1+, Sodium Level 132L, Potassium Level 3.1L, Chloride Level 100, Carbon Dioxide Level 24, Anion Gap 8, Blood Urea Nitrogen 10 , Creatinine 0.8, Estimat Glomerular Filtration Rate > 60, Glucose Level 99, Calcium Level 7.5L Current Medications Medications (Trade) Dose Ordered Sig/Tamar Route PRN Reason Start Time Stop Time Status Last Admin Dose Admin Albuterol Sulfate (Proventil MDI) 1 puff Q6H PRN INH Shortness of Breath 10/23/16 01:45 11/22/16 01:44 Bupropion HCl (Wellbutrin SR) 150 mg EVERY 12 HOURS ORAL 10/23/16 09:00 11/22/16 08:59 10/24/16 09:07 Cefepime HCl 2 gm/ Dextrose 110 ml @ 220 mls/hr EVERY 12 HOURS IVPB 10/23/16 09:00 10/30/16 08:59 10/24/16 09:06 Clonidine HCl (Catapres) 0.1 mg Q4H PRN ORAL For High Blood Pressure 10/23/16 01:30 11/22/16 01:29 10/24/16 04:40 Dapsone (Dapsone) 100 mg DAILY ORAL 10/23/16 09:00 10/30/16 08:59 10/24/16 09:08 Diphenhydramine HCl (Benadryl) 50 mg QHS ORAL 10/23/16 21:00 11/22/16 20:59 10/23/16 20:04 Estrogens Conjugated (Premarin) 1.25 mg DAILY ORAL 10/23/16 09:00 11/22/16 08:59 10/24/16 09:07 Ibuprofen (Motrin) 600 mg Q8H PRN ORAL For Pain 10/23/16 01:45 11/22/16 01:44 Morphine Sulfate (Morphine Sulfate) 2 mg Q4H PRN IVP For Pain 10/23/16 19:00 10/30/16 18:59 10/24/16 13:20 Non-Formulary Medication (Non-Formulary Med) 1 ea DAILY ORAL 10/23/16 09:00 11/22/16 08:59 UNV Non-Formulary Medication (Non-Formulary Med) 6 ea DAILY SUBQ 10/23/16 09:00 11/22/16 08:59 UNV Olanzapine (ZyPREXA Zydis) 10 mg BEDTIME ORAL 10/24/16 21:00 11/23/16 20:59 Raltegravir (Isentress) 400 mg BID ORAL 10/23/16 12:45 10/14/17 12:44 Ritonavir (Norvir) 100 mg BID ORAL 10/23/16 12:45 11/22/16 12:44 Sodium Chloride 1,000 ml @ 50 mls/hr Q20H IV 10/23/16 02:00 11/22/16 01:59 10/23/16 21:25 Vancomycin HCl (Vanco rx to dose) 1 ea DAILY PRN MISC Per rx protocol 10/23/16 06:30 11/22/16 06:29 Vancomycin HCl 1 gm/Dextrose 275 ml @ 183.708 mls/hr Q12H IVPB 10/23/16 22:00 10/28/16 21:59 10/24/16 10:17 PAULO JOHNSON Oct 24, 2016 14:30
--- NOTE | 2016-10-24 17:42 | Internal Med Progress Note ---
Subjective Date of Service: Oct 24, 2016 Physician Name Minor Pedroza Attending Physician Minor Pedroza Current Medications Medications (Trade) Dose Ordered Sig/Tamar Route PRN Reason Start Time Stop Time Status Last Admin Dose Admin Albuterol Sulfate (Proventil MDI) 1 puff Q6H PRN INH Shortness of Breath 10/23/16 01:45 11/22/16 01:44 Bupropion HCl (Wellbutrin SR) 150 mg EVERY 12 HOURS ORAL 10/23/16 09:00 11/22/16 08:59 10/24/16 09:07 Cefepime HCl 2 gm/ Dextrose 110 ml @ 220 mls/hr EVERY 12 HOURS IVPB 10/23/16 09:00 10/30/16 08:59 10/24/16 09:06 Clonidine HCl (Catapres) 0.1 mg Q4H PRN ORAL For High Blood Pressure 10/23/16 01:30 11/22/16 01:29 10/24/16 04:40 Dapsone (Dapsone) 100 mg DAILY ORAL 10/23/16 09:00 10/30/16 08:59 10/24/16 09:08 Diphenhydramine HCl (Benadryl) 50 mg QHS ORAL 10/23/16 21:00 11/22/16 20:59 10/23/16 20:04 Estrogens Conjugated (Premarin) 1.25 mg DAILY ORAL 10/23/16 09:00 11/22/16 08:59 10/24/16 09:07 Ibuprofen (Motrin) 600 mg Q8H PRN ORAL For Pain 10/23/16 01:45 11/22/16 01:44 Morphine Sulfate (Morphine Sulfate) 2 mg Q4H PRN IVP For Pain 10/23/16 19:00 10/30/16 18:59 10/24/16 13:20 Non-Formulary Medication (Non-Formulary Med) 1 ea DAILY ORAL 10/23/16 09:00 11/22/16 08:59 UNV Non-Formulary Medication (Non-Formulary Med) 6 ea DAILY SUBQ 10/23/16 09:00 11/22/16 08:59 UNV Olanzapine (ZyPREXA Zydis) 10 mg BEDTIME ORAL 10/24/16 21:00 11/23/16 20:59 Raltegravir (Isentress) 400 mg BID ORAL 10/23/16 12:45 11/22/16 12:44 Ritonavir (Norvir) 100 mg BID ORAL 10/23/16 12:45 11/22/16 12:44 Sodium Chloride 1,000 ml @ 50 mls/hr Q20H IV 10/23/16 02:00 11/22/16 01:59 10/23/16 21:25 Vancomycin HCl (Vanco rx to dose) 1 ea DAILY PRN MISC Per rx protocol 10/23/16 06:30 11/22/16 06:29 Vancomycin HCl 1 gm/Dextrose 275 ml @ 183.708 mls/hr Q12H IVPB 10/23/16 22:00 10/28/16 21:59 10/24/16 10:17 Allergies: Coded Allergies: HYDROMORPHONE (Verified Allergy, Severe, RASH, 06/30/16) PROCHLORPERAZINE (Verified Allergy, Severe, RASH, 06/30/16) SULFAMETHOXAZOLE (Verified Allergy, Severe, 06/30/16) SULFONYLUREAS (Verified Allergy, Severe, 06/30/16) TRIMETHOPRIM (Verified Allergy, Severe, 06/30/16) METOCLOPRAMIDE (Verified Allergy, Mild, 06/30/16) ACETAMINOPHEN (Unverified Allergy, Unknown, 10/22/16) ARIPIPRAZOLE (Unverified Allergy, Unknown, 06/30/16) HALOPERIDOL (Verified Allergy, Unknown, 06/30/16) HYDROCODONE (Unverified Allergy, Unknown, 10/22/16) MEPERIDINE (Unverified Allergy, Unknown, 10/22/16) Uncoded Allergies: Plastic tape (Allergy, Mild, 06/21/14) Patient states that he gets blisters around it. ROS Limited/Unobtainable: No Constitutional: Reports: no symptoms HEENT: Reports: no symptoms Cardiovascular: Reports: no symptoms Respiratory: Reports: no symptoms Gastrointestinal/Abdominal: Reports: no symptoms Genitourinary: Reports: no symptoms Neurologic/Psychiatric: Reports: no symptoms Subjective 50 YO M admitted with right elbow cellulitis. Now right olecranon fracture. Patient refusing HIV meds. Objective Last Vital Signs Date Time Temp Pulse Resp B/P (MAP) Pulse Ox O2 Delivery O2 Flow Rate FiO2 10/24/16 15:52 98.0 83 19 161/94 96 Nasal Cannula 2.0 General Appearance: mild distress, cachetic, thin EENT: PERRL/EOMI, normal ENT inspection Neck: non-tender, normal alignment, supple, normal inspection Cardiovascular: normal peripheral pulses, normal rate, regular rhythm, no gallop/murmur, no JVD Respiratory/Chest: chest wall non-tender, lungs clear, normal breath sounds, no respiratory distress, no accessory muscle use Abdomen: normal bowel sounds, non tender, soft, no organomegaly, no mass Extremities: other - right elbow in soft splint Neurologic: photographic spotter II-XII grossly normal, no motor/sensory deficits Skin: normal pigmentation, warm/dry Laboratory Tests Test 10/23/16 20:19 10/24/16 06:10 Urine Color Melony Urine Appearance Clear Urine pH 6 (4.5-8.0) Urine Specific [place] 1.015 (1.005-1.035) Urine Protein 2+ (NEGATIVE) H Urine Glucose (UA) Negative (NEGATIVE) Urine Ketones 1+ (NEGATIVE) H Urine Occult Blood 3+ (NEGATIVE) H Urine Nitrite Negative (NEGATIVE) Urine Bilirubin 1+ (NEGATIVE) H Urine Ictotest Positive Urine Urobilinogen 4 MG/DL (0.0-1.0) H Urine Leukocyte Esterase 1+ (NEGATIVE) H Urine RBC 10-15 /HPF (0 - 0) H Urine WBC 2-4 /HPF (0 - 0) Urine Squamous Epithelial Cells None /LPF (NONE/OCC) Urine Bacteria Few /HPF (NONE) White Blood Count 3.1 K/UL (4.8-10.8) L Red Blood Count 3.13 M/UL (4.70-6.10) L Hemoglobin 10.7 G/DL (14.2-18.0) L Hematocrit 30.0 % (42.0-52.0) L Mean Corpuscular Volume 96 FL (80-99) Mean Corpuscular Hemoglobin 34.3 PG (27.0-31.0) H Mean Corpuscular Hemoglobin Concent 35.8 G/DL (32.0-36.0) Red Cell Distribution Width 13.8 % (11.6-14.8) Platelet Count 60 K/UL (150-450) L Mean Platelet Volume 9.8 FL (6.5-10.1) Neutrophils (%) (Auto) % (45.0-75.0) Lymphocytes (%) (Auto) % (20.0-45.0) Monocytes (%) (Auto) % (1.0-10.0) Eosinophils (%) (Auto) % (0.0-3.0) Basophils (%) (Auto) % (0.0-2.0) Differential Total Cells Counted 100 Neutrophils % (Manual) 62 % (45-75) Lymphocytes % (Manual) 24 % (20-45) Monocytes % (Manual) 12 % (1-10) H Eosinophils % (Manual) 2 % (0-3) Basophils % (Manual) 0 % (0-2) Band Neutrophils 0 % (0-8) Platelet Estimate Decreased L Platelet Morphology Normal Macrocytosis 1+ Sodium Level 132 mEQ/L (135-145) L Potassium Level 3.1 mEQ/L (3.4-4.9) L Chloride Level 100 mEQ/L (98-107) Carbon Dioxide Level 24 mEQ/L (20-30) Anion Gap 8 (5-15) Blood Urea Nitrogen 10 mg/dL (7-23) Creatinine 0.8 mg/dL (0.7-1.2) Estimat Glomerular Filtration Rate > 60 mL/min (>60) Glucose Level 99 mg/dL (74-106) Calcium Level 7.5 mg/dL (8.6-10.2) L Microbiology Date/Time Source Procedure Growth Status 10/22/16 19:45 Blood Blood Culture - Preliminary NO GROWTH AFTER 24 HOURS Resulted 10/22/16 19:30 Blood Blood Culture - Preliminary NO GROWTH AFTER 24 HOURS Resulted 10/23/16 00:30 Nasal Nares MRSA Culture - Final Staphylococcus Aureus - Mrsa Complete 10/23/16 20:19 Urine,Clean Catch Urine Culture - Preliminary NO GROWTH Resulted Intake and Output 10/24/16 10/25/16 19:00 07:00 Intake Total 425.000 ml Balance 425.000 ml IV Total 425.000 ml Assessment/Plan Problem List: (1) Cellulitis of right elbow Assessment & Plan: Continue vanco and cefepime per ID (2) Fracture of right olecranon process Assessment & Plan: See ortho note. Conservative management (3) Right elbow pain (4) Hypokalemia Assessment & Plan: Continue IV fluids. (5) Transgender incomplete state (6) Hyponatremia Assessment & Plan: Resolving on IV fluids. (7) COPD (chronic obstructive pulmonary disease) Assessment & Plan: See pulmonary note. (8) HIV disease Assessment & Plan: Cont HAART per ID (9) HTN (hypertension) Assessment & Plan: Precobix and triumeq non formulary. Follow ID recs. (10) Hep C w/o coma, chronic Status: not improved MINOR PEDROZA Oct 24, 2016 17:42
[2016-10-24] MEDS: NS w/KCl 20mEq 1,000 ML IV SCH (17:43)
[2016-10-24] MEDS: ZyPREXA Zydis 10mg tab ORAL SCH (20:42)
--- NOTE | 2016-10-25 03:15 | Consultation ---
DATE OF CONSULTATION: 10/24/2016 INFECTIOUS DISEASES CONSULTATION ATTENDING PHYSICIAN: Don Leach M.D. Reason For Consultation: Right arm, left ankle and right foot cellulitis, fevers, history of human immunodeficiency virus. The patient's chief complaint coming into the hospital is cellulitis and right arm pain and right arm cellulitis and left ankle cellulitis. History Of Present Illness: This is a 50-year-old male with a history of HIV and AIDS, who comes in I believe with a history of falls and was noted to have right arm pain. The patient had x-rays and was seen by Orthopedic Surgery. It showed no fracture. The patient was noted to have redness and warmth of the right arm, right foot, and left ankle. The patient has cellulitis. An Infectious Disease consultation requested for antibiotic management. The patient was started on vancomycin and cefepime. MAR was noted. Orders were noted. Notes and records were reviewed. Case was discussed with Dr. Leach and the patient's outpatient physician, Dr. Jin Alfonso. Past Medical History: The patient's past medical history includes a history of the following: The patient has past medical history of HIV and AIDS. He has a history of UTI in the past. He has a history of pancreatitis, history of malnutrition, history of diarrhea in the past, history of hepatitis C, history of hypertension, history of depression, history of failure to thrive, history of pneumonia, history of neutropenia, history of wasting syndrome, CIDP or polyneuropathy. No history of diabetes. Medications: Upon reviewing the MAR, he is on the following medications. He is on olanzapine, diphenhydramine, morphine, raltegravir, Isentress, Ritonavir, Norvir, Wellbutrin, dapsone. He is on cefepime and vancomycin. He is on albuterol, ibuprofen, and clonidine. Allergies: Acetaminophen, omeprazole, haloperidol, hydrocodone, hydromorphone, meperidine, metoclopramide, prochlorperazine, sulfa, and plastic tape. Social History: Positive for smoking in the past, but he has quit. No alcohol or drug abuse. Family History: Noncontributory. Negative for tuberculosis or cancer. Review of Systems: Constitutional: The patient has generalized weakness and fatigue. He came in with fevers. He has no chills at this time. He does have decrease in appetite, maybe somewhat less weight loss. Head And Neck: No head pain. No neck pain. Head and neck, no thrush or dysphagia. Pulmonary: No congestion or shortness of breath. No productive cough or hemoptysis. Cardiac: No chest pain. No palpitations. Gastrointestinal: No nausea, vomiting, or diarrhea. No gastrointestinal bleed. Genitourinary: No dysuria or frequency. Skin: No rash or itching. Extremities: He has right arm, left ankle and right foot pain. Neurologic: No seizures. PHYSICAL EXAMINATION: GENERAL: Alert, responsive, no acute distress. Vital Signs: Temperature is 97.5 degrees, pulse rate 82, respiratory rate 20, blood pressure 160/87, and saturation 95%. Head And Neck: Oral exam, no thrush. Eye exam, no icterus. Normocephalic. No facial droop. No neck stiffness. Neck is supple. HEART: Regular rate and rhythm without murmur or rub. ABDOMEN: Soft. Positive bowel sounds. Nontender. LUNGS: Clear bilaterally. No rhonchi or rales. SKIN: No rash or dermatitis. MUSCULOSKELETAL: No effusions. No septic arthritis. Extremities: Lower extremity exam, he has cellulitis of the left ankle and right foot. Peripheral Vascular: No gangrene. His right arm has warmth and redness. At this time, it is covered in the cast. NEUROLOGIC: Intact. Nonfocal. LINES: Line sites without phlebitis. GENITOURINARY: No CVA tenderness. No Reese. Laboratory And Diagnostic Data: Laboratory as follows: White count 3.1, hemoglobin 10.7, and platelet count is 60,000. Creatinine is 0.8. LFTs were noted. X-ray showed no evidence of fracture of the right arm. Chest x-ray showed no acute cardiopulmonary disease. ASSESSMENT AND PLAN: 1. The patient has right arm, left ankle, and right foot cellulitis. The patient has fevers, T-max 99.9 degrees. The patient is colonized with MRSA. The patient has a history of human immunodeficiency virus and acquired immune deficiency syndrome. Continue vancomycin and cefepime for gram-negative methicillin resistant Staphylococcus aureus coverage to cover the cellulitis of the right arm, left ankle, and right foot. Hopefully, if the patient continues to improve, consider transition to oral antibiotics. Watch the temperatures, watch laboratories, watch creatinine and vancomycin. 2. Methicillin-resistant Staphylococcus aureus colonization isolation. 3. Human immunodeficiency virus and acquired immune deficiency syndrome. Continue anti-retroviral care per Dr. Alfonso and further workup per Dr. Alfonso as an outpatient. 4. Anemia. 5. Leukopenia. 6. Depression. 7. Chronic inflammatory demyelinating polyneuropathy. 8. History of urinary tract infection and pneumonia. 9. History of sepsis. 10. Wasting syndrome and failure to thrive. 11. Hypertension. 12. No history of diabetes. 13. Past medical history as noted. 14. Multiple drug allergies including sulfa. 15. Social history, past smoker. 16. MAR was noted. 17. Case was discussed with RN. 18. Family history noncontributory. 19. Continue treatment per Dr. Leach and consultants. 20. Skin care protocol. 21. Notes and records were reviewed. Nidhi Muse M.D. DR: DAGO JOB#: [id number] CC:
[2016-10-25 04:00] VITALS: BP 161/83
--- NOTE | 2016-10-25 04:30 | Progress Note ---
DATE: 10/24/2016 History of Present Illness: The patient still has moderate pain. He feels little more comfortable with his right elbow. Examination shows splint is still in place. The patient refuses to remove the splint because of the discomfort. He otherwise is doing well. Physical Examination: Shows the patient is alert and oriented. He is resting in bed. The splint is in place. The patient is able to flex and extend his fingers. ASSESSMENT: Right nondisplaced radial head fracture. Discussion: At this point, we will continue the splint for no more than one week. At that point, he is to remove the splint with an active flexion-extension and range of motion of his right elbow. He can follow up as outpatient at which point we can fit him for a hinge brace. He is supposed to be nonweightbearing. Daniel Eason M.D. DR: CLYDE JOB#: [id number] CC: ENRRIQUE
[2016-10-25] MEDS: Morphine Sulfate 2mg/ml Inj IVP PRN ×3 (05:54→18:07)
[2016-10-25 06:15] VITALS: BP 152/84
[2016-10-25] MEDS: Isentress 400mg tab ORAL SCH ×2 (10:00→18:00)
[2016-10-25] MEDS: Ritonavir 100mg tab ORAL SCH ×2 (10:00→18:00)
[2016-10-25] MEDS: Cefepime HCl 2 GM in D5W 110 ML IVPB SCH ×2 (10:33→20:29)
[2016-10-25] MEDS: BuPROPion SR 150mg tab ORAL SCH ×2 (10:49→20:29)
[2016-10-25] MEDS: Premarin tab 0.625MG ORAL SCH (10:49)
[2016-10-25] MEDS: Vancomycin 1gm/D5W 275ml IVPB SCH ×4 (11:16→21:47)
[2016-10-25 12:00] VITALS: BP 139/73
--- NOTE | 2016-10-25 12:59 | Pulmonology Progress Note ---
Assessment/Plan Problems: (1) Cellulitis (2) Chronic inflammatory demyelinating polyneuropathy (3) Wasting syndrome (4) Depression (5) Fever (6) AIDS (7) Hepatitis C (8) Homelessness Assessment/Plan iproving all noted IV abx K supplement wound care check electrolytes Subjective ROS Limited/Unobtainable: No Allergies: Coded Allergies: HYDROMORPHONE (Verified Allergy, Severe, RASH, 06/30/16) PROCHLORPERAZINE (Verified Allergy, Severe, RASH, 06/30/16) SULFAMETHOXAZOLE (Verified Allergy, Severe, 06/30/16) SULFONYLUREAS (Verified Allergy, Severe, 06/30/16) TRIMETHOPRIM (Verified Allergy, Severe, 06/30/16) METOCLOPRAMIDE (Verified Allergy, Mild, 06/30/16) ACETAMINOPHEN (Unverified Allergy, Unknown, 10/22/16) ARIPIPRAZOLE (Unverified Allergy, Unknown, 06/30/16) HALOPERIDOL (Verified Allergy, Unknown, 06/30/16) HYDROCODONE (Unverified Allergy, Unknown, 10/22/16) MEPERIDINE (Unverified Allergy, Unknown, 10/22/16) Uncoded Allergies: Plastic tape (Allergy, Mild, 06/21/14) Patient states that he gets blisters around it. Objective Last 24 Hour Vital Signs Date Time Temp Pulse Resp B/P (MAP) Pulse Ox O2 Delivery O2 Flow Rate FiO2 10/25/16 06:15 152/84 10/25/16 04:00 97.8 75 17 161/83 97 Nasal Cannula 2.0 10/24/16 23:43 99.4 78 20 132/77 91 Room Air 10/24/16 20:44 171/98 10/24/16 20:01 99.1 84 20 171/98 95 Room Air 10/24/16 19:05 72 18 Nasal Cannula 2.0 10/24/16 18:13 98.0 10/24/16 15:52 98.0 83 19 161/94 96 Nasal Cannula 2.0 Objective General Appearance: WD/WN HEENT: normocephalic, atraumatic Respiratory/Chest: chest wall non-tender, lungs clear Cardiovascular: normal peripheral pulses, normal rate Abdomen: normal bowel sounds, soft, non tender Extremities: no cyanosis, no clubbing 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 Complete Laboratory Tests 10/24/16 21:15: Vancomycin Level Trough 13.0H Current Medications Medications (Trade) Dose Ordered Sig/Tamar Route PRN Reason Start Time Stop Time Status Last Admin Dose Admin Albuterol Sulfate (Proventil MDI) 1 puff Q6H PRN INH Shortness of Breath 10/23/16 01:45 11/22/16 01:44 Bupropion HCl (Wellbutrin SR) 150 mg EVERY 12 HOURS ORAL 10/23/16 09:00 11/22/16 08:59 10/25/16 10:49 Cefepime HCl 2 gm/ Dextrose 110 ml @ 220 mls/hr EVERY 12 HOURS IVPB 10/23/16 09:00 10/30/16 08:59 10/25/16 10:33 Clonidine HCl (Catapres) 0.1 mg Q4H PRN ORAL For High Blood Pressure 10/23/16 01:30 11/22/16 01:29 10/24/16 20:44 Dapsone (Dapsone) 100 mg DAILY ORAL 10/23/16 09:00 10/30/16 08:59 10/25/16 10:49 Diphenhydramine HCl (Benadryl) 50 mg QHS ORAL 10/23/16 21:00 11/22/16 20:59 10/24/16 20:42 Estrogens Conjugated (Premarin) 1.25 mg DAILY ORAL 10/23/16 09:00 11/22/16 08:59 10/25/16 10:49 Ibuprofen (Motrin) 600 mg Q8H PRN ORAL PAIN/TEMP>100.5 10/25/16 17:45 11/24/16 17:44 Morphine Sulfate (Morphine Sulfate) 2 mg Q4H PRN IVP For Pain 10/23/16 19:00 10/30/16 18:59 10/25/16 11:49 Olanzapine (ZyPREXA Zydis) 10 mg BEDTIME ORAL 10/24/16 21:00 11/23/16 20:59 10/24/16 20:42 Raltegravir (Isentress) 400 mg BID ORAL 10/23/16 12:45 11/22/16 12:44 Ritonavir (Norvir) 100 mg BID ORAL 10/23/16 12:45 11/22/16 12:44 Sodium Chloride 1,000 ml @ 50 mls/hr Q20H IV 10/23/16 02:00 11/22/16 01:59 10/24/16 17:43 Vancomycin HCl (Vanco rx to dose) 1 ea DAILY PRN MISC Per rx protocol 10/23/16 06:30 11/22/16 06:29 Vancomycin HCl 1 gm/Dextrose 275 ml @ 183.708 mls/hr Q12H IVPB 10/23/16 22:00 10/28/16 21:59 10/25/16 11:16 PAULO JOHNSON Oct 25, 2016 12:58
[2016-10-25] MEDS: NS w/KCl 20mEq 1,000 ML IV SCH (14:00)
--- NOTE | 2016-10-25 14:11 | Internal Med Progress Note ---
Subjective Date of Service: Oct 25, 2016 Physician Name Don Pedroza Attending Physician Don Pedroza Current Medications Medications (Trade) Dose Ordered Sig/Tamar Route PRN Reason Start Time Stop Time Status Last Admin Dose Admin Albuterol Sulfate (Proventil MDI) 1 puff Q6H PRN INH Shortness of Breath 10/23/16 01:45 11/22/16 01:44 Bupropion HCl (Wellbutrin SR) 150 mg EVERY 12 HOURS ORAL 10/23/16 09:00 11/22/16 08:59 10/25/16 10:49 Cefepime HCl 2 gm/ Dextrose 110 ml @ 220 mls/hr EVERY 12 HOURS IVPB 10/23/16 09:00 10/30/16 08:59 10/25/16 10:33 Clonidine HCl (Catapres) 0.1 mg Q4H PRN ORAL For High Blood Pressure 10/23/16 01:30 11/22/16 01:29 10/24/16 20:44 Dapsone (Dapsone) 100 mg DAILY ORAL 10/23/16 09:00 10/30/16 08:59 10/25/16 10:49 Diphenhydramine HCl (Benadryl) 50 mg QHS ORAL 10/23/16 21:00 11/22/16 20:59 10/24/16 20:42 Estrogens Conjugated (Premarin) 1.25 mg DAILY ORAL 10/23/16 09:00 11/22/16 08:59 10/25/16 10:49 Ibuprofen (Motrin) 600 mg Q8H PRN ORAL PAIN/TEMP>100.5 10/25/16 17:45 11/24/16 17:44 10/25/16 12:58 Morphine Sulfate (Morphine Sulfate) 2 mg Q4H PRN IVP For Pain 10/23/16 19:00 10/30/16 18:59 10/25/16 11:49 Olanzapine (ZyPREXA Zydis) 10 mg BEDTIME ORAL 10/24/16 21:00 11/23/16 20:59 10/24/16 20:42 Raltegravir (Isentress) 400 mg BID ORAL 10/23/16 12:45 11/22/16 12:44 Ritonavir (Norvir) 100 mg BID ORAL 10/23/16 12:45 11/22/16 12:44 Sodium Chloride 1,000 ml @ 50 mls/hr Q20H IV 10/23/16 02:00 11/22/16 01:59 10/24/16 17:43 Vancomycin HCl (Vanco rx to dose) 1 ea DAILY PRN MISC Per rx protocol 10/23/16 06:30 11/22/16 06:29 Vancomycin HCl 1 gm/Dextrose 275 ml @ 183.708 mls/hr Q12H IVPB 10/23/16 22:00 10/28/16 21:59 10/25/16 11:16 Allergies: Coded Allergies: HYDROMORPHONE (Verified Allergy, Severe, RASH, 06/30/16) PROCHLORPERAZINE (Verified Allergy, Severe, RASH, 06/30/16) SULFAMETHOXAZOLE (Verified Allergy, Severe, 06/30/16) SULFONYLUREAS (Verified Allergy, Severe, 06/30/16) TRIMETHOPRIM (Verified Allergy, Severe, 06/30/16) METOCLOPRAMIDE (Verified Allergy, Mild, 06/30/16) ACETAMINOPHEN (Unverified Allergy, Unknown, 10/22/16) ARIPIPRAZOLE (Unverified Allergy, Unknown, 06/30/16) HALOPERIDOL (Verified Allergy, Unknown, 06/30/16) HYDROCODONE (Unverified Allergy, Unknown, 10/22/16) MEPERIDINE (Unverified Allergy, Unknown, 10/22/16) Uncoded Allergies: Plastic tape (Allergy, Mild, 06/21/14) Patient states that he gets blisters around it. ROS Limited/Unobtainable: No Constitutional: Reports: no symptoms HEENT: Reports: no symptoms Cardiovascular: Reports: no symptoms Respiratory: Reports: no symptoms Gastrointestinal/Abdominal: Reports: no symptoms Genitourinary: Reports: no symptoms Neurologic/Psychiatric: Reports: no symptoms Subjective 50 YO M admitted with right elbow cellulitis. Now right olecranon fracture. Patient refusing HIV meds. Objective Last Vital Signs Date Time Temp Pulse Resp B/P (MAP) Pulse Ox O2 Delivery O2 Flow Rate FiO2 10/25/16 06:15 152/84 10/25/16 04:00 97.8 75 17 97 Nasal Cannula 2.0 Laboratory Tests Test 10/24/16 21:15 Vancomycin Level Trough 13.0 ug/mL (5.0-12.0) H Microbiology Date/Time Source Procedure Growth Status 10/22/16 19:45 Blood Blood Culture - Preliminary NO GROWTH AFTER 48 HOURS Resulted 10/22/16 19:30 Blood Blood Culture - Preliminary NO GROWTH AFTER 48 HOURS Resulted 10/23/16 00:30 Nasal Nares MRSA Culture - Final Staphylococcus Aureus - Mrsa Complete 10/23/16 20:19 Urine,Clean Catch Urine Culture - Final NO GROWTH AFTER 48 HOURS Complete 10/23/16 00:30 Rectum VRE Culture - Final NO VANCOMYCIN RESISTANT ENTEROCOCCUS ... 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 Conservative management (3) Right elbow pain (4) Hypokalemia Assessment & Plan: Continue IV fluids. (5) Transgender incomplete state (6) Hyponatremia Assessment & Plan: Resolving on IV fluids. (7) COPD (chronic obstructive pulmonary disease) Assessment & Plan: See pulmonary note. (8) HIV disease Assessment & Plan: Cont HAART per ID (9) HTN (hypertension) Assessment & Plan: Precobix and triumeq non formulary. Follow ID recs. (10) Hep C w/o coma, chronic Status: stable DON PEDROZA Oct 25, 2016 14:11
[2016-10-25 16:03] VITALS: BP 162/85
[2016-10-25 20:00] VITALS: BP 155/89
[2016-10-25] MEDS: ZyPREXA Zydis 10mg tab ORAL SCH (20:29)
[2016-10-25] MEDS: Dyna-Hex 2% Top Sol 8oz TOPIC SCH (20:29)
[2016-10-26] VITALS (7 sets, daily range): BP systolic 136–168; BP diastolic 66–99
[2016-10-26] MEDS: Morphine Sulfate 2mg/ml Inj IVP PRN ×4 (01:59→22:25)
[2016-10-26] MEDS: NS w/KCl 20mEq 1,000 ML IV SCH ×2 (02:01→10:00)
[2016-10-26 07:43] LABS: MEAN CORPUSCULAR HEMOGLOBIN 32.7 PG (27.0-31.0); MEAN CORPUSCULAR HGB CONC 33.6 G/DL (32.0-36.0); MEAN CORPUSCULAR VOLUME 97 FL (80-99); MEAN PLATELET VOLUME 7.6 FL (6.5-10.1); PLATELET COUNT 59 K/UL (150-450); RED BLOOD COUNT 3.36 M/UL (4.70-6.10); WHITE BLOOD COUNT 2.2 K/UL (4.8-10.8)
[2016-10-26 08:19] LABS: ANION GAP 7 (5-15); CALCIUM 7.3 mg/dL (8.6-10.2); CARBON DIOXIDE 25 mEQ/L (20-30); CHLORIDE 108 mEQ/L (98-107); CREATININE 0.7 mg/dL (0.7-1.2); GLOMERULAR FILTRATION RATE > 60 mL/min (>60); HEMOLYSIS 1; SODIUM 140 mEQ/L (135-145)
[2016-10-26 08:59] LABS: BAND NEUTROPHILS % (MANUAL) 0 % (0-8); BASOPHILS % (MANUAL) 2 % (0-2); BURR CELLS 1+; EOSINOPHILS % (MANUAL) 3 % (0-3); LYMPHOCYTES % (MANUAL) 13 % (20-45); MACROCYTES 1+; NEUTROPHILS % (MANUAL) 74 % (45-75); PLATELET ESTIMATE DECREASED; PLATELET MORPHOLOGY NORMAL; TOTAL CELLS COUNTED 100
[2016-10-26] MEDS: Isentress 400mg tab ORAL SCH ×2 (09:00→18:00)
[2016-10-26] MEDS: Ritonavir 100mg tab ORAL SCH ×2 (09:00→18:00)
[2016-10-26] MEDS: Premarin tab 0.625MG ORAL SCH (09:43)
[2016-10-26] MEDS: BuPROPion SR 150mg tab ORAL SCH ×2 (09:43→21:24)
[2016-10-26] MEDS: Cefepime HCl 2 GM in D5W 110 ML IVPB SCH (09:45)
[2016-10-26] MEDS ORDERED: NS 275ml ONE (10:06)
[2016-10-26] MEDS: Vancomycin 1gm/D5W 275ml IVPB SCH ×2 (11:10)
--- NOTE | 2016-10-26 13:24 | Internal Med Progress Note ---
Subjective Date of Service: Oct 26, 2016 Physician Name Minor Pedroza Attending Physician Minor Pedroza Current Medications Medications (Trade) Dose Ordered Sig/Tamar Route PRN Reason Start Time Stop Time Status Last Admin Dose Admin Albuterol Sulfate (Proventil MDI) 1 puff Q6H PRN INH Shortness of Breath 10/23/16 01:45 11/22/16 01:44 Bupropion HCl (Wellbutrin SR) 150 mg EVERY 12 HOURS ORAL 10/23/16 09:00 11/22/16 08:59 10/26/16 09:43 Cefepime HCl 2 gm/ Dextrose 110 ml @ 220 mls/hr EVERY 12 HOURS IVPB 10/23/16 09:00 10/30/16 08:59 10/26/16 09:45 Chlorhexidine Gluconate (Meli-Hex 2%) 1 applic QHS TOPIC 10/25/16 21:00 11/24/16 20:59 10/25/16 20:29 Clonidine HCl (Catapres) 0.1 mg Q4H PRN ORAL For High Blood Pressure 10/23/16 01:30 11/22/16 01:29 10/24/16 20:44 Dapsone (Dapsone) 100 mg DAILY ORAL 10/23/16 09:00 10/30/16 08:59 10/26/16 09:42 Diphenhydramine HCl (Benadryl) 50 mg QHS ORAL 10/23/16 21:00 11/22/16 20:59 10/25/16 20:29 Estrogens Conjugated (Premarin) 1.25 mg DAILY ORAL 10/23/16 09:00 11/22/16 08:59 10/26/16 09:43 Ibuprofen (Motrin) 600 mg Q8H PRN ORAL PAIN/TEMP>100.5 10/25/16 17:45 11/24/16 17:44 10/25/16 12:58 Morphine Sulfate (Morphine Sulfate) 2 mg Q4H PRN IVP For Pain 10/23/16 19:00 10/30/16 18:59 10/26/16 12:28 Olanzapine (ZyPREXA Zydis) 10 mg BEDTIME ORAL 10/24/16 21:00 11/23/16 20:59 10/25/16 20:29 Potassium Chloride (K-Dur) 40 meq DAILY ORAL 10/25/16 15:00 11/24/16 14:59 10/26/16 09:43 Raltegravir (Isentress) 400 mg BID ORAL 10/23/16 12:45 11/22/16 12:44 Ritonavir (Norvir) 100 mg BID ORAL 10/23/16 12:45 11/22/16 12:44 Sodium Chloride 1,000 ml @ 50 mls/hr Q20H IV 10/23/16 02:00 11/22/16 01:59 10/26/16 02:01 Vancomycin HCl (Vanco rx to dose) 1 ea DAILY PRN MISC Per rx protocol 10/23/16 06:30 11/22/16 06:29 Vancomycin HCl 1 gm/Dextrose 275 ml @ 183.708 mls/hr Q12H IVPB 10/23/16 22:00 10/28/16 21:59 10/26/16 11:10 Allergies: Coded Allergies: HYDROMORPHONE (Verified Allergy, Severe, RASH, 06/30/16) PROCHLORPERAZINE (Verified Allergy, Severe, RASH, 06/30/16) SULFAMETHOXAZOLE (Verified Allergy, Severe, 06/30/16) SULFONYLUREAS (Verified Allergy, Severe, 06/30/16) TRIMETHOPRIM (Verified Allergy, Severe, 06/30/16) METOCLOPRAMIDE (Verified Allergy, Mild, 06/30/16) ACETAMINOPHEN (Unverified Allergy, Unknown, 10/22/16) ARIPIPRAZOLE (Unverified Allergy, Unknown, 06/30/16) HALOPERIDOL (Verified Allergy, Unknown, 06/30/16) HYDROCODONE (Unverified Allergy, Unknown, 10/22/16) MEPERIDINE (Unverified Allergy, Unknown, 10/22/16) Uncoded Allergies: Plastic tape (Allergy, Mild, 06/21/14) Patient states that he gets blisters around it. ROS Limited/Unobtainable: No Constitutional: Reports: no symptoms HEENT: Reports: no symptoms Cardiovascular: Reports: no symptoms Respiratory: Reports: no symptoms Gastrointestinal/Abdominal: Reports: no symptoms Genitourinary: Reports: no symptoms Neurologic/Psychiatric: Reports: no symptoms Subjective 50 YO M admitted with right elbow cellulitis. Now right olecranon fracture. Patient refusing HIV meds and oral potassium Objective Last Vital Signs Date Time Temp Pulse Resp B/P (MAP) Pulse Ox O2 Delivery O2 Flow Rate FiO2 10/26/16 12:17 97.2 90 19 159/87 94 Room Air 10/26/16 07:45 2.0 Laboratory Tests Test 10/26/16 05:15 White Blood Count 2.2 K/UL (4.8-10.8) L Red Blood Count 3.36 M/UL (4.70-6.10) L Hemoglobin 11.0 G/DL (14.2-18.0) L Hematocrit 32.6 % (42.0-52.0) L Mean Corpuscular Volume 97 FL (80-99) Mean Corpuscular Hemoglobin 32.7 PG (27.0-31.0) H Mean Corpuscular Hemoglobin Concent 33.6 G/DL (32.0-36.0) Red Cell Distribution Width 14.0 % (11.6-14.8) Platelet Count 59 K/UL (150-450) L Mean Platelet Volume 7.6 FL (6.5-10.1) Neutrophils (%) (Auto) % (45.0-75.0) Lymphocytes (%) (Auto) % (20.0-45.0) Monocytes (%) (Auto) % (1.0-10.0) Eosinophils (%) (Auto) % (0.0-3.0) Basophils (%) (Auto) % (0.0-2.0) Differential Total Cells Counted 100 Neutrophils % (Manual) 74 % (45-75) Lymphocytes % (Manual) 13 % (20-45) L Monocytes % (Manual) 8 % (1-10) Eosinophils % (Manual) 3 % (0-3) Basophils % (Manual) 2 % (0-2) Band Neutrophils 0 % (0-8) Platelet Estimate Decreased L Platelet Morphology Normal Basophilic Stippling 1+ Macrocytosis 1+ Camilla Cells 1+ Sodium Level 140 mEQ/L (135-145) Potassium Level 4.0 mEQ/L (3.4-4.9) Chloride Level 108 mEQ/L (98-107) H Carbon Dioxide Level 25 mEQ/L (20-30) Anion Gap 7 (5-15) Blood Urea Nitrogen 9 mg/dL (7-23) Creatinine 0.7 mg/dL (0.7-1.2) Estimat Glomerular Filtration Rate > 60 mL/min (>60) Glucose Level 86 mg/dL (74-106) Calcium Level 7.3 mg/dL (8.6-10.2) L Microbiology Date/Time Source Procedure Growth Status 10/23/16 20:19 Urine,Clean Catch Urine Culture - Final NO GROWTH AFTER 48 HOURS Complete Intake and Output 10/26/16 10/27/16 19:00 07:00 Intake Total 240 ml Balance 240 ml Intake Oral 240 ml Objective General Appearance: mild distress, cachetic, thin EENT: PERRL/EOMI, normal ENT inspection Neck: non-tender, normal alignment, supple, normal inspection Cardiovascular: normal peripheral pulses, normal rate, regular rhythm, no gallop/murmur, no JVD Respiratory/Chest: chest wall non-tender, lungs clear, normal breath sounds, no respiratory distress, no accessory muscle use Abdomen: normal bowel sounds, non tender, soft, no organomegaly, no mass Extremities: other - right elbow in soft splint 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 (4) Transgender incomplete state (5) Hyponatremia Assessment & Plan: Resolving on IV fluids. (6) COPD (chronic obstructive pulmonary disease) Assessment & Plan: See pulmonary note. (7) HIV disease Assessment & Plan: Cont HAART per ID (8) HTN (hypertension) Assessment & Plan: Precobix and triumeq non formulary. Follow ID recs. (9) Hep C w/o coma, chronic (10) Right radial head fracture Assessment & Plan: Non-displaced. See othro note-continue splint for 1 week. Status: progressing Assessment/Plan Discharge planning MINOR PEDROZA Oct 26, 2016 13:24
--- NOTE | 2016-10-26 15:32 | Infectious Diseases Prog Note ---
Assessment/Plan Assessment/Plan ASSESSMENT AND PLAN: 1. right arm cellulitis, right foot cellulitis, left ankle cellulitis, x-ray - no fx, fevers - clinically better - fevers resolved - continue vancomycin and discontinue cefepime - check labs 2. Methicillin-resistant Staphylococcus aureus colonization isolation. 3. Human immunodeficiency virus and acquired immune deficiency syndrome. Continue anti-retroviral care per Dr. Alfonso and further workup per Dr. Alfonso as an outpatient - d/w RN, pt non-compliant with anti-retrovirals, encourage compliance 4. Anemia, thrombocytopenia 5. Leukopenia. 6. Depression. 7. Chronic inflammatory demyelinating polyneuropathy. 8. History of urinary tract infection and pneumonia. 9. History of sepsis. 10. Wasting syndrome and failure to thrive. 11. Hypertension. 12. No history of diabetes. 13. Past medical history as noted. 14. Multiple drug allergies including sulfa. 15. Social history, past smoker. 16. MAR was noted. 17. Case was discussed with RN. 18. Family history noncontributory. 19. Continue treatment per Dr. Leach and consultants. 20. Skin care protocol. 21. Notes and records were reviewed. Subjective Constitutional: Denies: fever HEENT: Denies: congestion Respiratory: Denies: shortness of breath Breasts: Denies: discharge Cardiovascular: Denies: chest pain Gastrointestinal/Abdominal: Denies: nausea, vomiting, diarrhea Genitourinary: Reports: other - no blancas Neurologic: Denies: headache Psychiatric: Reports: depression Skin: Denies: rash Hematologic: Denies: bleeding Musculoskeletal: Reports: pain - + pain right arm Allergies: Coded Allergies: HYDROMORPHONE (Verified Allergy, Severe, RASH, 06/30/16) PROCHLORPERAZINE (Verified Allergy, Severe, RASH, 06/30/16) SULFAMETHOXAZOLE (Verified Allergy, Severe, 06/30/16) SULFONYLUREAS (Verified Allergy, Severe, 06/30/16) TRIMETHOPRIM (Verified Allergy, Severe, 06/30/16) METOCLOPRAMIDE (Verified Allergy, Mild, 06/30/16) ACETAMINOPHEN (Unverified Allergy, Unknown, 10/22/16) ARIPIPRAZOLE (Unverified Allergy, Unknown, 06/30/16) HALOPERIDOL (Verified Allergy, Unknown, 06/30/16) HYDROCODONE (Unverified Allergy, Unknown, 10/22/16) MEPERIDINE (Unverified Allergy, Unknown, 10/22/16) Uncoded Allergies: Plastic tape (Allergy, Mild, 06/21/14) Patient states that he gets blisters around it. Objective Vital Signs Last 24 Hour Vital Signs Date Time Temp Pulse Resp B/P (MAP) Pulse Ox O2 Delivery O2 Flow Rate FiO2 10/26/16 12:17 97.2 90 19 159/87 94 Room Air 10/26/16 08:15 98.4 95 21 150/99 97 Room Air 10/26/16 07:45 91 18 Nasal Cannula 2.0 10/26/16 04:00 97.9 91 18 136/66 95 Nasal Cannula 10/26/16 00:00 97.5 88 20 157/84 98 Nasal Cannula 10/25/16 20:14 96 18 Nasal Cannula 2.0 10/25/16 20:00 97.5 80 20 155/89 96 Nasal Cannula 10/25/16 16:03 97.6 83 20 162/85 97 Room Air Height (Feet): 5 Height (Inches): 7.00 Weight (Pounds): 120 General Appearance: no acute distress HEENT: normocephalic, atraumatic, anicteric, mucous membranes moist, EOMI, pharynx normal, supple, no JVD Respiratory/Chest: lungs clear, normal breath sounds, no respiratory distress, no accessory muscle use Cardiovascular: normal rate, regular rhythm, no gallop/murmur, no JVD Abdomen: normal bowel sounds, soft, non tender, no organomegaly, non distended Genitourinary: other - no blancas, no cva pain Extremities: no cyanosis, other - right arm with some swelling, left ankle and right foot cellulitis improved Skin: no rash 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 Complete Microbiology Date/Time Source Procedure Growth Status 10/23/16 20:19 Urine,Clean Catch Urine Culture - Final NO GROWTH AFTER 48 HOURS Complete Laboratory Tests Test 10/26/16 05:15 White Blood Count 2.2 K/UL (4.8-10.8) L Red Blood Count 3.36 M/UL (4.70-6.10) L Hemoglobin 11.0 G/DL (14.2-18.0) L Hematocrit 32.6 % (42.0-52.0) L Mean Corpuscular Volume 97 FL (80-99) Mean Corpuscular Hemoglobin 32.7 PG (27.0-31.0) H Mean Corpuscular Hemoglobin Concent 33.6 G/DL (32.0-36.0) Red Cell Distribution Width 14.0 % (11.6-14.8) Platelet Count 59 K/UL (150-450) L Mean Platelet Volume 7.6 FL (6.5-10.1) Neutrophils (%) (Auto) % (45.0-75.0) Lymphocytes (%) (Auto) % (20.0-45.0) Monocytes (%) (Auto) % (1.0-10.0) Eosinophils (%) (Auto) % (0.0-3.0) Basophils (%) (Auto) % (0.0-2.0) Differential Total Cells Counted 100 Neutrophils % (Manual) 74 % (45-75) Lymphocytes % (Manual) 13 % (20-45) L Monocytes % (Manual) 8 % (1-10) Eosinophils % (Manual) 3 % (0-3) Basophils % (Manual) 2 % (0-2) Band Neutrophils 0 % (0-8) Platelet Estimate Decreased L Platelet Morphology Normal Basophilic Stippling 1+ Macrocytosis 1+ Camilla Cells 1+ Sodium Level 140 mEQ/L (135-145) Potassium Level 4.0 mEQ/L (3.4-4.9) Chloride Level 108 mEQ/L (98-107) H Carbon Dioxide Level 25 mEQ/L (20-30) Anion Gap 7 (5-15) Blood Urea Nitrogen 9 mg/dL (7-23) Creatinine 0.7 mg/dL (0.7-1.2) Estimat Glomerular Filtration Rate > 60 mL/min (>60) Glucose Level 86 mg/dL (74-106) Calcium Level 7.3 mg/dL (8.6-10.2) L Current Medications Medications (Trade) Dose Ordered Sig/Tamar Route PRN Reason Start Time Stop Time Status Last Admin Dose Admin Albuterol Sulfate (Proventil MDI) 1 puff Q6H PRN INH Shortness of Breath 10/23/16 01:45 11/22/16 01:44 Bupropion HCl (Wellbutrin SR) 150 mg EVERY 12 HOURS ORAL 10/23/16 09:00 11/22/16 08:59 10/26/16 09:43 Cefepime HCl 2 gm/ Dextrose 110 ml @ 220 mls/hr EVERY 12 HOURS IVPB 10/23/16 09:00 10/30/16 08:59 10/26/16 09:45 Chlorhexidine Gluconate (Meli-Hex 2%) 1 applic QHS TOPIC 10/25/16 21:00 11/24/16 20:59 10/25/16 20:29 Clonidine HCl (Catapres) 0.1 mg Q4H PRN ORAL For High Blood Pressure 10/23/16 01:30 11/22/16 01:29 10/24/16 20:44 Dapsone (Dapsone) 100 mg DAILY ORAL 10/23/16 09:00 10/30/16 08:59 10/26/16 09:42 Diphenhydramine HCl (Benadryl) 50 mg QHS ORAL 10/23/16 21:00 11/22/16 20:59 10/25/16 20:29 Estrogens Conjugated (Premarin) 1.25 mg DAILY ORAL 10/23/16 09:00 11/22/16 08:59 10/26/16 09:43 Ibuprofen (Motrin) 600 mg Q8H PRN ORAL PAIN/TEMP>100.5 10/25/16 17:45 11/24/16 17:44 10/25/16 12:58 Morphine Sulfate (Morphine Sulfate) 2 mg Q4H PRN IVP For Pain 10/23/16 19:00 10/30/16 18:59 10/26/16 12:28 Olanzapine (ZyPREXA Zydis) 10 mg BEDTIME ORAL 10/24/16 21:00 11/23/16 20:59 10/25/16 20:29 Potassium Chloride (K-Dur) 40 meq DAILY ORAL 10/25/16 15:00 11/24/16 14:59 10/26/16 09:43 Raltegravir (Isentress) 400 mg BID ORAL 10/23/16 12:45 11/22/16 12:44 Ritonavir (Norvir) 100 mg BID ORAL 10/23/16 12:45 11/22/16 12:44 Vancomycin HCl (Vanco rx to dose) 1 ea DAILY PRN MISC Per rx protocol 10/23/16 06:30 11/22/16 06:29 Vancomycin HCl 1 gm/Dextrose 275 ml @ 183.708 mls/hr Q12H IVPB 10/23/16 22:00 10/28/16 21:59 10/26/16 11:10 JOSE RAMIREZ Oct 26, 2016 15:32
[2016-10-26] MEDS ORDERED: Tubing IV Secondary IV ONE (15:48)
--- NOTE | 2016-10-26 16:07 | Pulmonology Progress Note ---
Assessment/Plan Problems: (1) Cellulitis (2) Chronic inflammatory demyelinating polyneuropathy (3) Wasting syndrome (4) Depression (5) Fever (6) AIDS (7) Hepatitis C (8) Homelessness Assessment/Plan iproving all noted IV abx K supplement wound care check electrolytes Subjective ROS Limited/Unobtainable: No Allergies: Coded Allergies: HYDROMORPHONE (Verified Allergy, Severe, RASH, 06/30/16) PROCHLORPERAZINE (Verified Allergy, Severe, RASH, 06/30/16) SULFAMETHOXAZOLE (Verified Allergy, Severe, 06/30/16) SULFONYLUREAS (Verified Allergy, Severe, 06/30/16) TRIMETHOPRIM (Verified Allergy, Severe, 06/30/16) METOCLOPRAMIDE (Verified Allergy, Mild, 06/30/16) ACETAMINOPHEN (Unverified Allergy, Unknown, 10/22/16) ARIPIPRAZOLE (Unverified Allergy, Unknown, 06/30/16) HALOPERIDOL (Verified Allergy, Unknown, 06/30/16) HYDROCODONE (Unverified Allergy, Unknown, 10/22/16) MEPERIDINE (Unverified Allergy, Unknown, 10/22/16) Uncoded Allergies: Plastic tape (Allergy, Mild, 06/21/14) Patient states that he gets blisters around it. Objective Last 24 Hour Vital Signs Date Time Temp Pulse Resp B/P (MAP) Pulse Ox O2 Delivery O2 Flow Rate FiO2 10/26/16 15:37 97.2 90 20 158/77 94 Room Air 10/26/16 12:17 97.2 90 19 159/87 94 Room Air 10/26/16 08:15 98.4 95 21 150/99 97 Room Air 10/26/16 07:45 91 18 Nasal Cannula 2.0 10/26/16 04:00 97.9 91 18 136/66 95 Nasal Cannula 10/26/16 00:00 97.5 88 20 157/84 98 Nasal Cannula 10/25/16 20:14 96 18 Nasal Cannula 2.0 10/25/16 20:00 97.5 80 20 155/89 96 Nasal Cannula Intake and Output 10/26/16 10/27/16 19:00 07:00 Intake Total 775.000 ml Balance 775.000 ml Intake Oral 240 ml IV Total 535.000 ml Objective General Appearance: WD/WN HEENT: normocephalic, atraumatic Respiratory/Chest: chest wall non-tender, lungs clear Cardiovascular: normal peripheral pulses, normal rate Abdomen: normal bowel sounds, soft, non tender Extremities: no cyanosis, no clubbing 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, no motor/sensory deficits Microbiology Date/Time Source Procedure Growth Status 10/23/16 20:19 Urine,Clean Catch Urine Culture - Final NO GROWTH AFTER 48 HOURS Complete Laboratory Tests 10/26/16 05:15: White Blood Count 2.2L, Red Blood Count 3.36L, Hemoglobin 11.0L, Hematocrit 32.6L, Mean Corpuscular Volume 97, Mean Corpuscular Hemoglobin 32.7H, Mean Corpuscular Hemoglobin Concent 33.6, Red Cell Distribution Width 14.0, Platelet Count 59L, Mean Platelet Volume 7.6, Neutrophils (%) (Auto) , Lymphocytes (%) ( Auto) , Monocytes (%) (Auto) , Eosinophils (%) (Auto) , Basophils (%) (Auto) , Differential Total Cells Counted 100, Neutrophils % (Manual) 74, Lymphocytes % ( Manual) 13L, Monocytes % (Manual) 8, Eosinophils % (Manual) 3, Basophils % ( Manual) 2, Band Neutrophils 0, Platelet Estimate DecreasedL, Platelet Morphology Normal, Basophilic Stippling 1+, Macrocytosis 1+, Camilla Cells 1+, Sodium Level 140, Potassium Level 4.0, Chloride Level 108H, Carbon Dioxide Level 25, Anion Gap 7, Blood Urea Nitrogen 9, Creatinine 0.7, Estimat Glomerular Filtration Rate > 60, Glucose Level 86, Calcium Level 7.3L Current Medications Medications (Trade) Dose Ordered Sig/Tamar Route PRN Reason Start Time Stop Time Status Last Admin Dose Admin Albuterol Sulfate (Proventil MDI) 1 puff Q6H PRN INH Shortness of Breath 10/23/16 01:45 11/22/16 01:44 Bupropion HCl (Wellbutrin SR) 150 mg EVERY 12 HOURS ORAL 10/23/16 09:00 11/22/16 08:59 10/26/16 09:43 Chlorhexidine Gluconate (Meli-Hex 2%) 1 applic QHS TOPIC 10/25/16 21:00 11/24/16 20:59 10/25/16 20:29 Clonidine HCl (Catapres) 0.1 mg Q4H PRN ORAL For High Blood Pressure 10/23/16 01:30 11/22/16 01:29 10/24/16 20:44 Dapsone (Dapsone) 100 mg DAILY ORAL 10/23/16 09:00 10/30/16 08:59 10/26/16 09:42 Diphenhydramine HCl (Benadryl) 50 mg QHS ORAL 10/23/16 21:00 11/22/16 20:59 10/25/16 20:29 Estrogens Conjugated (Premarin) 1.25 mg DAILY ORAL 10/23/16 09:00 11/22/16 08:59 10/26/16 09:43 Ibuprofen (Motrin) 600 mg Q8H PRN ORAL PAIN/TEMP>100.5 10/25/16 17:45 11/24/16 17:44 10/25/16 12:58 Morphine Sulfate (Morphine Sulfate) 2 mg Q4H PRN IVP For Pain 10/23/16 19:00 10/30/16 18:59 10/26/16 12:28 Olanzapine (ZyPREXA Zydis) 10 mg BEDTIME ORAL 10/24/16 21:00 11/23/16 20:59 10/25/16 20:29 Potassium Chloride (K-Dur) 40 meq DAILY ORAL 10/25/16 15:00 11/24/16 14:59 10/26/16 09:43 Raltegravir (Isentress) 400 mg BID ORAL 10/23/16 12:45 11/22/16 12:44 Ritonavir (Norvir) 100 mg BID ORAL 10/23/16 12:45 11/22/16 12:44 Vancomycin HCl (Vanco rx to dose) 1 ea DAILY PRN MISC Per rx protocol 10/23/16 06:30 11/22/16 06:29 Vancomycin HCl 1 gm/Dextrose 275 ml @ 183.708 mls/hr Q12H IVPB 10/26/16 22:00 10/31/16 21:59 PAULO JOHNSON Oct 26, 2016 16:07
--- NOTE | 2016-10-26 20:07 | Psych Consult Progress Note ---
Psych Consult Progress Note Consult 10/25 the pt was found asleep depressed. Vital Signs Last 24 Hour Vital Signs Date Time Temp Pulse Resp B/P (MAP) Pulse Ox O2 Delivery O2 Flow Rate FiO2 10/26/16 19:49 92 18 Nasal Cannula 2.0 10/26/16 15:37 97.2 90 20 158/77 94 Room Air 10/26/16 12:17 97.2 90 19 159/87 94 Room Air 10/26/16 08:15 98.4 95 21 150/99 97 Room Air 10/26/16 07:45 91 18 Nasal Cannula 2.0 10/26/16 04:00 97.9 91 18 136/66 95 Nasal Cannula 10/26/16 00:00 97.5 88 20 157/84 98 Nasal Cannula 10/25/16 20:14 96 18 Nasal Cannula 2.0 Labs Laboratory Tests Test 10/26/16 05:15 White Blood Count 2.2 K/UL (4.8-10.8) L Red Blood Count 3.36 M/UL (4.70-6.10) L Hemoglobin 11.0 G/DL (14.2-18.0) L Hematocrit 32.6 % (42.0-52.0) L Mean Corpuscular Volume 97 FL (80-99) Mean Corpuscular Hemoglobin 32.7 PG (27.0-31.0) H Mean Corpuscular Hemoglobin Concent 33.6 G/DL (32.0-36.0) Red Cell Distribution Width 14.0 % (11.6-14.8) Platelet Count 59 K/UL (150-450) L Mean Platelet Volume 7.6 FL (6.5-10.1) Neutrophils (%) (Auto) % (45.0-75.0) Lymphocytes (%) (Auto) % (20.0-45.0) Monocytes (%) (Auto) % (1.0-10.0) Eosinophils (%) (Auto) % (0.0-3.0) Basophils (%) (Auto) % (0.0-2.0) Differential Total Cells Counted 100 Neutrophils % (Manual) 74 % (45-75) Lymphocytes % (Manual) 13 % (20-45) L Monocytes % (Manual) 8 % (1-10) Eosinophils % (Manual) 3 % (0-3) Basophils % (Manual) 2 % (0-2) Band Neutrophils 0 % (0-8) Platelet Estimate Decreased L Platelet Morphology Normal Basophilic Stippling 1+ Macrocytosis 1+ Camilla Cells 1+ Sodium Level 140 mEQ/L (135-145) Potassium Level 4.0 mEQ/L (3.4-4.9) Chloride Level 108 mEQ/L (98-107) H Carbon Dioxide Level 25 mEQ/L (20-30) Anion Gap 7 (5-15) Blood Urea Nitrogen 9 mg/dL (7-23) Creatinine 0.7 mg/dL (0.7-1.2) Estimat Glomerular Filtration Rate > 60 mL/min (>60) Glucose Level 86 mg/dL (74-106) Calcium Level 7.3 mg/dL (8.6-10.2) L Medications Current Medications Medications (Trade) Dose Ordered Sig/Tamar Route PRN Reason Start Time Stop Time Status Last Admin Dose Admin Albuterol Sulfate (Proventil MDI) 1 puff Q6H PRN INH Shortness of Breath 10/23/16 01:45 11/22/16 01:44 Bupropion HCl (Wellbutrin SR) 150 mg EVERY 12 HOURS ORAL 10/23/16 09:00 11/22/16 08:59 10/26/16 09:43 Chlorhexidine Gluconate (Meli-Hex 2%) 1 applic QHS TOPIC 10/25/16 21:00 11/24/16 20:59 10/25/16 20:29 Clonidine HCl (Catapres) 0.1 mg Q4H PRN ORAL For High Blood Pressure 10/23/16 01:30 11/22/16 01:29 10/24/16 20:44 Dapsone (Dapsone) 100 mg DAILY ORAL 10/23/16 09:00 10/30/16 08:59 10/26/16 09:42 Diphenhydramine HCl (Benadryl) 50 mg QHS ORAL 10/23/16 21:00 11/22/16 20:59 10/25/16 20:29 Estrogens Conjugated (Premarin) 1.25 mg DAILY ORAL 10/23/16 09:00 11/22/16 08:59 10/26/16 09:43 Ibuprofen (Motrin) 600 mg Q8H PRN ORAL PAIN/TEMP>100.5 10/25/16 17:45 11/24/16 17:44 10/25/16 12:58 Morphine Sulfate (Morphine Sulfate) 2 mg Q4H PRN IVP For Pain 10/23/16 19:00 10/30/16 18:59 10/26/16 18:27 Olanzapine (ZyPREXA Zydis) 10 mg BEDTIME ORAL 10/24/16 21:00 11/23/16 20:59 10/25/16 20:29 Potassium Chloride (K-Dur) 40 meq DAILY ORAL 10/25/16 15:00 11/24/16 14:59 10/26/16 09:43 Raltegravir (Isentress) 400 mg BID ORAL 10/23/16 12:45 11/22/16 12:44 Ritonavir (Norvir) 100 mg BID ORAL 10/23/16 12:45 11/22/16 12:44 Vancomycin HCl (Vanco rx to dose) 1 ea DAILY PRN MISC Per rx protocol 10/23/16 06:30 11/22/16 06:29 Vancomycin HCl 1 gm/Dextrose 275 ml @ 183.708 mls/hr Q12H IVPB 10/26/16 22:00 10/31/16 21:59 Problems: (1) History of HIV infection Status: Acute (2) Cellulitis Status: Acute (3) Bipolar 1 disorder, depressed, moderate (4) Cellulitis (5) Hypokalemia (6) Right elbow pain (7) Fracture of right olecranon process (8) Cellulitis of right elbow (9) COPD (chronic obstructive pulmonary disease) (10) HIV disease (11) Hep C w/o coma, chronic (12) HTN (hypertension) (13) Right radial head fracture (14) Dehydration Status: Acute (15) Anemia Status: Acute (16) Cough (17) Diarrhea Status: Acute (18) SOB (shortness of breath) (19) Pyelonephritis (20) Thrombocytopenia Status: Acute (21) Hypoalbuminemia (22) UTI (urinary tract infection) (23) Abdominal pain (24) Bronchitis (25) Cystitis Status: Acute (26) E coli infection (27) Severe malnutrition (28) Asthma (29) [id number] Status: Acute (30) Nausea & vomiting Onset Date: 06/21/2014 Status: Acute (31) Anemia in chronic illness Status: Acute (32) Failure to thrive in adult Status: Acute (33) Intractable vomiting Status: Acute (34) Inguinal hernia, right (35) Protracted diarrhea Status: Acute (36) [id number] Status: Acute (37) PNA (pneumonia) (38) Intractable abdominal pain Status: Acute (39) [id number] Status: Acute (40) concern for pneumonia Status: Acute (41) pancreatitis Status: Acute (42) Acute pancreatitis Status: Acute (43) Malnutrition Status: Acute (44) Multiple substance abuse Status: Acute (45) Transgender incomplete state Status: Acute (46) Sepsis Status: Acute (47) [id number] Status: Acute (48) concern for pneumonia Status: Acute (49) Hyponatremia Status: Acute (50) Hypokalemia Status: Acute (51) Influenza A Status: Acute (52) Methamphetamine addiction Status: Acute (53) AIDS Status: Acute (54) Neutropenia associated with acquired immune deficiency syndrome (AIDS) Status: Acute (55) Fever Status: Acute (56) MRSA colonization Status: Acute (57) Depression Status: Acute (58) Wasting syndrome Status: Acute (59) Chronic inflammatory demyelinating polyneuropathy Status: Acute (60) Pancytopenia Status: Acute Assessment/Plan Status: stable, progressing Assessment/Plan cont current adrianas Olya Banks M.D. Oct 26, 2016 20:07
--- NOTE | 2016-10-26 20:09 | General Progress Note ---
Assessment/Plan Problem List: (1) History of HIV infection ICD Codes: Z86.19 - Personal history of other infectious and parasitic diseases SNOMED: 003079944 (2) Cellulitis ICD Codes: L03.90 - Cellulitis, unspecified SNOMED: 943372014 Qualifiers: Qualified Codes: L03.113 - Cellulitis of right upper limb (3) Bipolar 1 disorder, depressed, moderate ICD Codes: F31.32 - Bipolar disorder, current episode depressed, moderate SNOMED: 41009467 (4) Cellulitis ICD Codes: L03.90 - Cellulitis, unspecified SNOMED: 470499113 (5) Hypokalemia ICD Codes: E87.6 - Hypokalemia SNOMED: 41547752 (6) Right elbow pain ICD Codes: M25.521 - Pain in right elbow SNOMED: 82608289 (7) Fracture of right olecranon process ICD Codes: S52.021A - Displaced fracture of olecranon process without intraarticular extension of right ulna, initial encounter for closed fracture SNOMED: 551906133 (8) Cellulitis of right elbow ICD Codes: L03.113 - Cellulitis of right upper limb SNOMED: 502903861 (9) COPD (chronic obstructive pulmonary disease) ICD Codes: J44.9 - Chronic obstructive pulmonary disease, unspecified SNOMED: 74658759 (10) HIV disease ICD Codes: B20 - Human immunodeficiency virus [HIV] disease SNOMED: 06341287 (11) Hep C w/o coma, chronic ICD Codes: B18.2 - Chronic viral hepatitis C SNOMED: 304950790 (12) HTN (hypertension) ICD Codes: I10 - Essential (primary) hypertension SNOMED: 89156837 (13) Right radial head fracture ICD Codes: S52.121A - Displaced fracture of head of right radius, initial encounter for closed fracture SNOMED: 164607763 (14) Dehydration ICD Codes: E86.0 - Dehydration SNOMED: 77177584 (15) Anemia ICD Codes: D64.9 - Anemia, unspecified SNOMED: 909951075 (16) Cough ICD Codes: R05 - Cough SNOMED: 60910448 (17) Diarrhea ICD Codes: R19.7 - Diarrhea, unspecified SNOMED: 24275178 (18) SOB (shortness of breath) ICD Codes: R06.02 - Shortness of breath SNOMED: 343871173 (19) Pyelonephritis ICD Codes: N12 - Tubulo-interstitial nephritis, not specified as acute or chronic SNOMED: 89106671 (20) Thrombocytopenia ICD Codes: D69.6 - Thrombocytopenia, unspecified SNOMED: 636515201 (21) Hypoalbuminemia ICD Codes: E88.09 - Other disorders of plasma-protein metabolism, not elsewhere classified SNOMED: 272887621 (22) UTI (urinary tract infection) ICD Codes: N39.0 - Urinary tract infection, site not specified SNOMED: 48918148 (23) Abdominal pain ICD Codes: R10.9 - Unspecified abdominal pain SNOMED: 28953986 (24) Bronchitis ICD Codes: J40 - Bronchitis, not specified as acute or chronic SNOMED: 03200986 (25) Cystitis ICD Codes: N30.90 - Cystitis, unspecified without hematuria SNOMED: 79870815 (26) E coli infection ICD Codes: A49.8 - Other bacterial infections of unspecified site SNOMED: 75967520 (27) Severe malnutrition ICD Codes: E41 - Nutritional marasmus SNOMED: 12140867 (28) Asthma ICD Codes: J45.909 - Unspecified asthma, uncomplicated SNOMED: 564988271 (29) 263911 (30) Nausea & vomiting ICD Codes: R11.2 - Nausea & vomiting SNOMED: 72090438 (31) Anemia in chronic illness ICD Codes: D63.8 - Anemia in other chronic diseases classified elsewhere SNOMED: 896826916 (32) Failure to thrive in adult ICD Codes: R62.7 - Adult failure to thrive SNOMED: 386964502 (33) Intractable vomiting ICD Codes: R11.10 - Uncontrollable vomiting SNOMED: 994194429 (34) Inguinal hernia, right ICD Codes: K40.90 - Unilateral inguinal hernia, without obstruction or gangrene , not specified as recurrent SNOMED: 245933979 (35) Protracted diarrhea ICD Codes: K52.9 - Noninfective gastroenteritis and colitis, unspecified SNOMED: 469596723 (36) 7026430 (37) PNA (pneumonia) ICD Codes: J18.9 - Pneumonia, unspecified organism SNOMED: 311206685 (38) Intractable abdominal pain ICD Codes: R10.9 - Unspecified abdominal pain SNOMED: 97026359, 250769421 (39) 01887358 (40) concern for pneumonia (41) pancreatitis (42) Acute pancreatitis ICD Codes: K85.9 - Acute pancreatitis SNOMED: 733345994 (43) Malnutrition ICD Codes: E46 - Malnutrition SNOMED: 0087641 (44) Multiple substance abuse ICD Codes: F19.10 - Multiple substance abuse SNOMED: 25704429 (45) Transgender incomplete state (46) Sepsis (47) [id number] (48) concern for pneumonia (49) Hyponatremia (50) Hypokalemia ICD Codes: E87.6 - Hypokalemia SNOMED: 99143212 (51) Influenza A ICD Codes: J10.1 - Influenza A SNOMED: 936388764 (52) Methamphetamine addiction ICD Codes: F15.20 - Methamphetamine addiction SNOMED: 039405011 (53) AIDS ICD Codes: B20 - Acquired immunodeficiency syndrome SNOMED: 09651366 (54) Neutropenia associated with acquired immune deficiency syndrome (AIDS) ICD Codes: B20 - Neutropenia associated with acquired immune deficiency syndrome (AIDS); D70.3 - Neutropenia due to infection SNOMED: 867353040 (55) Fever ICD Codes: R50.9 - Fever SNOMED: 983000062 (56) MRSA colonization ICD Codes: Z22.322 - MRSA colonization SNOMED: 017242937 (57) Depression ICD Codes: F32.9 - Depression SNOMED: 75642672 (58) Wasting syndrome ICD Codes: R64 - Wasting syndrome SNOMED: 649852377 (59) Chronic inflammatory demyelinating polyneuropathy ICD Codes: G61.81 - Chronic inflammatory demyelinating polyneuropathy SNOMED: 801230660 (60) Pancytopenia ICD Codes: D61.818 - Pancytopenia SNOMED: 824012411 Assessment/Plan legal issues, meth dependence. substance induced psychosis Zyprexa Wellbutrin Subjective Date patient seen: Oct 26, 2016 Constitutional: Reports: malaise, weakness Neurologic/Psychiatric: Reports: anxiety, depressed, emotional problems Allergies: Coded Allergies: HYDROMORPHONE (Verified Allergy, Severe, RASH, 06/30/16) PROCHLORPERAZINE (Verified Allergy, Severe, RASH, 06/30/16) SULFAMETHOXAZOLE (Verified Allergy, Severe, 06/30/16) SULFONYLUREAS (Verified Allergy, Severe, 06/30/16) TRIMETHOPRIM (Verified Allergy, Severe, 06/30/16) METOCLOPRAMIDE (Verified Allergy, Mild, 06/30/16) ACETAMINOPHEN (Unverified Allergy, Unknown, 10/22/16) ARIPIPRAZOLE (Unverified Allergy, Unknown, 06/30/16) HALOPERIDOL (Verified Allergy, Unknown, 06/30/16) HYDROCODONE (Unverified Allergy, Unknown, 10/22/16) MEPERIDINE (Unverified Allergy, Unknown, 10/22/16) Uncoded Allergies: Plastic tape (Allergy, Mild, 06/21/14) Patient states that he gets blisters around it. Objective Last 24 Hour Vital Signs Date Time Temp Pulse Resp B/P (MAP) Pulse Ox O2 Delivery O2 Flow Rate FiO2 10/26/16 19:49 92 18 Nasal Cannula 2.0 10/26/16 15:37 97.2 90 20 158/77 94 Room Air 10/26/16 12:17 97.2 90 19 159/87 94 Room Air 10/26/16 08:15 98.4 95 21 150/99 97 Room Air 10/26/16 07:45 91 18 Nasal Cannula 2.0 10/26/16 04:00 97.9 91 18 136/66 95 Nasal Cannula 10/26/16 00:00 97.5 88 20 157/84 98 Nasal Cannula 10/25/16 20:14 96 18 Nasal Cannula 2.0 Intake and Output 10/26/16 10/27/16 19:00 07:00 Intake Total 775.000 ml Balance 775.000 ml Intake Oral 240 ml IV Total 535.000 ml # Bowel Movements 1 Laboratory Tests 10/26/16 05:15: White Blood Count 2.2L, Red Blood Count 3.36L, Hemoglobin 11.0L, Hematocrit 32.6L, Mean Corpuscular Volume 97, Mean Corpuscular Hemoglobin 32.7H, Mean Corpuscular Hemoglobin Concent 33.6, Red Cell Distribution Width 14.0, Platelet Count 59L, Mean Platelet Volume 7.6, Neutrophils (%) (Auto) , Lymphocytes (%) ( Auto) , Monocytes (%) (Auto) , Eosinophils (%) (Auto) , Basophils (%) (Auto) , Differential Total Cells Counted 100, Neutrophils % (Manual) 74, Lymphocytes % ( Manual) 13L, Monocytes % (Manual) 8, Eosinophils % (Manual) 3, Basophils % ( Manual) 2, Band Neutrophils 0, Platelet Estimate DecreasedL, Platelet Morphology Normal, Basophilic Stippling 1+, Macrocytosis 1+, Camilla Cells 1+, Sodium Level 140, Potassium Level 4.0, Chloride Level 108H, Carbon Dioxide Level 25, Anion Gap 7, Blood Urea Nitrogen 9, Creatinine 0.7, Estimat Glomerular Filtration Rate > 60, Glucose Level 86, Calcium Level 7.3L Height (Feet): 5 Height (Inches): 7.00 Weight (Pounds): 120 General Appearance: no apparent distress, alert, thin Neurologic: alert, oriented x 3, responsive, depressed affect Olya Banks M.D. Oct 26, 2016 20:09
[2016-10-26] MEDS: Dyna-Hex 2% Top Sol 8oz TOPIC SCH (21:24)
[2016-10-26] MEDS: ZyPREXA Zydis 10mg tab ORAL SCH (21:24)
[2016-10-26] MEDS: Vancomycin 1 GM in D5W 275 ML IVPB SCH (22:25)
[2016-10-27] VITALS (7 sets, daily range): BP systolic 142–220; BP diastolic 73–130
[2016-10-27] MEDS: Morphine Sulfate 2mg/ml Inj IVP PRN ×3 (06:08→16:22)
[2016-10-27 07:39] LABS: MEAN CORPUSCULAR HEMOGLOBIN 33.2 PG (27.0-31.0); MEAN CORPUSCULAR HGB CONC 34.3 G/DL (32.0-36.0); MEAN CORPUSCULAR VOLUME 97 FL (80-99); PLATELET COUNT 77 K/UL (150-450); RED BLOOD COUNT 3.21 M/UL (4.70-6.10); RED CELL DISTRIBUTION WIDTH 13.6 % (11.6-14.8); WHITE BLOOD COUNT 2.3 K/UL (4.8-10.8)
[2016-10-27 08:26] LABS: BAND NEUTROPHILS % (MANUAL) 0 % (0-8); BASOPHILS % (MANUAL) 0 % (0-2); EOSINOPHILS % (MANUAL) 4 % (0-3); LYMPHOCYTES % (MANUAL) 18 % (20-45); MACROCYTES 1+; NEUTROPHILS % (MANUAL) 66 % (45-75); PLATELET ESTIMATE DECREASED; PLATELET MORPHOLOGY NORMAL; SCHISTOCYTES 1+; TEAR DROP CELLS 1+; TOTAL CELLS COUNTED 100
[2016-10-27 08:29] LABS: ANION GAP 7 (5-15); CALCIUM 7.5 mg/dL (8.6-10.2); CARBON DIOXIDE 27 mEQ/L (20-30); CHLORIDE 101 mEQ/L (98-107); CREATININE 0.8 mg/dL (0.7-1.2); GLOMERULAR FILTRATION RATE > 60 mL/min (>60); HEMOLYSIS 2; POTASSIUM 4.1 mEQ/L (3.4-4.9); SODIUM 135 mEQ/L (135-145)
[2016-10-27] MEDS: BuPROPion SR 150mg tab ORAL SCH ×2 (08:49→20:51)
[2016-10-27] MEDS: Premarin tab 0.625MG ORAL SCH (08:50)
[2016-10-27] MEDS: Isentress 400mg tab ORAL SCH ×2 (08:52→18:00)
[2016-10-27] MEDS: Ritonavir 100mg tab ORAL SCH ×2 (08:54→18:00)
[2016-10-27] MEDS: Vancomycin 1 GM in D5W 275 ML IVPB SCH ×2 (09:49→22:00)
--- NOTE | 2016-10-27 10:16 | Internal Med Progress Note ---
Subjective Date of Service: Oct 27, 2016 Physician Name Don Pedroza Attending Physician Don Pedroza Current Medications Medications (Trade) Dose Ordered Sig/Tamar Route PRN Reason Start Time Stop Time Status Last Admin Dose Admin Albuterol Sulfate (Proventil MDI) 1 puff Q6H PRN INH Shortness of Breath 10/23/16 01:45 11/22/16 01:44 Bupropion HCl (Wellbutrin SR) 150 mg EVERY 12 HOURS ORAL 10/23/16 09:00 11/22/16 08:59 10/27/16 08:49 Chlorhexidine Gluconate (Meli-Hex 2%) 1 applic QHS TOPIC 10/25/16 21:00 11/24/16 20:59 10/26/16 21:24 Clonidine HCl (Catapres) 0.1 mg Q4H PRN ORAL For High Blood Pressure 10/23/16 01:30 11/22/16 01:29 10/24/16 20:44 Dapsone (Dapsone) 100 mg DAILY ORAL 10/23/16 09:00 10/30/16 08:59 10/27/16 08:49 Diphenhydramine HCl (Benadryl) 50 mg QHS ORAL 10/23/16 21:00 11/22/16 20:59 10/26/16 21:24 Estrogens Conjugated (Premarin) 1.25 mg DAILY ORAL 10/23/16 09:00 11/22/16 08:59 10/27/16 08:50 Ibuprofen (Motrin) 600 mg Q8H PRN ORAL PAIN/TEMP>100.5 10/25/16 17:45 11/24/16 17:44 10/25/16 12:58 Morphine Sulfate (Morphine Sulfate) 2 mg Q4H PRN IVP For Pain 10/23/16 19:00 10/30/16 18:59 10/27/16 06:08 Olanzapine (ZyPREXA Zydis) 10 mg BEDTIME ORAL 10/24/16 21:00 11/23/16 20:59 10/26/16 21:24 Potassium Chloride (K-Dur) 40 meq DAILY ORAL 10/25/16 15:00 11/24/16 14:59 10/26/16 09:43 Raltegravir (Isentress) 400 mg BID ORAL 10/23/16 12:45 11/22/16 12:44 Ritonavir (Norvir) 100 mg BID ORAL 10/23/16 12:45 11/22/16 12:44 Vancomycin HCl (Vanco rx to dose) 1 ea DAILY PRN MISC Per rx protocol 10/23/16 06:30 11/22/16 06:29 Vancomycin HCl 1 gm/Dextrose 275 ml @ 183.708 mls/hr Q12H IVPB 10/26/16 22:00 10/31/16 21:59 10/27/16 09:49 Allergies: Coded Allergies: HYDROMORPHONE (Verified Allergy, Severe, RASH, 06/30/16) PROCHLORPERAZINE (Verified Allergy, Severe, RASH, 06/30/16) SULFAMETHOXAZOLE (Verified Allergy, Severe, 06/30/16) SULFONYLUREAS (Verified Allergy, Severe, 06/30/16) TRIMETHOPRIM (Verified Allergy, Severe, 06/30/16) METOCLOPRAMIDE (Verified Allergy, Mild, 06/30/16) ACETAMINOPHEN (Unverified Allergy, Unknown, 10/22/16) ARIPIPRAZOLE (Unverified Allergy, Unknown, 06/30/16) HALOPERIDOL (Verified Allergy, Unknown, 06/30/16) HYDROCODONE (Unverified Allergy, Unknown, 10/22/16) MEPERIDINE (Unverified Allergy, Unknown, 10/22/16) Uncoded Allergies: Plastic tape (Allergy, Mild, 06/21/14) Patient states that he gets blisters around it. ROS Limited/Unobtainable: No Constitutional: Reports: no symptoms HEENT: Reports: no symptoms Cardiovascular: Reports: no symptoms Respiratory: Reports: no symptoms Gastrointestinal/Abdominal: Reports: no symptoms Genitourinary: Reports: no symptoms Neurologic/Psychiatric: Reports: no symptoms Subjective 50 YO M admitted with right elbow cellulitis. Now right radial head fracture. Patient refusing HIV meds and oral potassium Objective Last Vital Signs Date Time Temp Pulse Resp B/P (MAP) Pulse Ox O2 Delivery O2 Flow Rate FiO2 10/27/16 08:00 97.8 90 20 196/73 94 Nasal Cannula 2.0 10/27/16 07:17 28 Laboratory Tests Test 10/27/16 05:00 White Blood Count 2.3 K/UL (4.8-10.8) L Red Blood Count 3.21 M/UL (4.70-6.10) L Hemoglobin 10.6 G/DL (14.2-18.0) L Hematocrit 31.1 % (42.0-52.0) L Mean Corpuscular Volume 97 FL (80-99) Mean Corpuscular Hemoglobin 33.2 PG (27.0-31.0) H Mean Corpuscular Hemoglobin Concent 34.3 G/DL (32.0-36.0) Red Cell Distribution Width 13.6 % (11.6-14.8) Platelet Count 77 K/UL (150-450) L Mean Platelet Volume 6.0 FL (6.5-10.1) L Neutrophils (%) (Auto) % (45.0-75.0) Lymphocytes (%) (Auto) % (20.0-45.0) Monocytes (%) (Auto) % (1.0-10.0) Eosinophils (%) (Auto) % (0.0-3.0) Basophils (%) (Auto) % (0.0-2.0) Differential Total Cells Counted 100 Neutrophils % (Manual) 66 % (45-75) Lymphocytes % (Manual) 18 % (20-45) L Monocytes % (Manual) 12 % (1-10) H Eosinophils % (Manual) 4 % (0-3) H Basophils % (Manual) 0 % (0-2) Band Neutrophils 0 % (0-8) Platelet Estimate Decreased L Platelet Morphology Normal Macrocytosis 1+ Tear Drop Cells 1+ Schistocytes 1+ Sodium Level 135 mEQ/L (135-145) Potassium Level 4.1 mEQ/L (3.4-4.9) Chloride Level 101 mEQ/L (98-107) Carbon Dioxide Level 27 mEQ/L (20-30) Anion Gap 7 (5-15) Blood Urea Nitrogen 9 mg/dL (7-23) Creatinine 0.8 mg/dL (0.7-1.2) Estimat Glomerular Filtration Rate > 60 mL/min (>60) Glucose Level 75 mg/dL (74-106) Calcium Level 7.5 mg/dL (8.6-10.2) L Microbiology Date/Time Source Procedure Growth Status 10/25/16 15:15 Blood Blood Culture - Preliminary NO GROWTH AFTER 24 HOURS Resulted 10/25/16 15:10 Blood Blood Culture - Preliminary NO GROWTH AFTER 24 HOURS Resulted Objective General Appearance: mild distress, cachetic, thin EENT: PERRL/EOMI, normal ENT inspection Neck: non-tender, normal alignment, supple, normal inspection Cardiovascular: normal peripheral pulses, normal rate, regular rhythm, no gallop/murmur, no JVD Respiratory/Chest: chest wall non-tender, lungs clear, normal breath sounds, no respiratory distress, no accessory muscle use Abdomen: normal bowel sounds, non tender, soft, no organomegaly, no mass Extremities: other - right elbow in soft splint Neurologic: button broacher II-XII grossly normal, no motor/sensory deficits Skin: normal pigmentation, warm/dry Assessment/Plan Problem List: (1) Cellulitis of right elbow Assessment & Plan: Continue vanco and cefepime per ID (2) Right elbow pain (3) Hypokalemia Assessment & Plan: Continue IV fluids. (4) Transgender incomplete state (5) Hyponatremia Assessment & Plan: Resolving on IV fluids. (6) COPD (chronic obstructive pulmonary disease) Assessment & Plan: See pulmonary note. (7) HIV disease Assessment & Plan: Cont HAART per ID (8) HTN (hypertension) Assessment & Plan: Precobix and triumeq non formulary. Follow ID recs. (9) Hep C w/o coma, chronic (10) Right radial head fracture Assessment & Plan: Non-displaced. See othro note-continue splint for 1 week. Status: stable Assessment/Plan Discharge planning DON PEDROZA Oct 27, 2016 10:15
[2016-10-27] MEDS ORDERED: Lisinopril 10mg tab ORAL SCH (11:00)
--- NOTE | 2016-10-27 15:11 | Pulmonology Progress Note ---
Assessment/Plan Problems: (1) Cellulitis (2) Chronic inflammatory demyelinating polyneuropathy (3) Wasting syndrome (4) Depression (5) Fever (6) AIDS (7) Hepatitis C (8) Homelessness Assessment/Plan iproving all noted IV abx all labs checked started walking all notes reviewed Subjective ROS Limited/Unobtainable: No Constitutional: Reports: no symptoms HEENT: Repors: no symptoms Respiratory: Reports: no symptoms Allergies: Coded Allergies: HYDROMORPHONE (Verified Allergy, Severe, RASH, 06/30/16) PROCHLORPERAZINE (Verified Allergy, Severe, RASH, 06/30/16) SULFAMETHOXAZOLE (Verified Allergy, Severe, 06/30/16) SULFONYLUREAS (Verified Allergy, Severe, 06/30/16) TRIMETHOPRIM (Verified Allergy, Severe, 06/30/16) METOCLOPRAMIDE (Verified Allergy, Mild, 06/30/16) ACETAMINOPHEN (Unverified Allergy, Unknown, 10/22/16) ARIPIPRAZOLE (Unverified Allergy, Unknown, 06/30/16) HALOPERIDOL (Verified Allergy, Unknown, 06/30/16) HYDROCODONE (Unverified Allergy, Unknown, 10/22/16) MEPERIDINE (Unverified Allergy, Unknown, 10/22/16) Uncoded Allergies: Plastic tape (Allergy, Mild, 06/21/14) Patient states that he gets blisters around it. Objective Last 24 Hour Vital Signs Date Time Temp Pulse Resp B/P (MAP) Pulse Ox O2 Delivery O2 Flow Rate FiO2 10/27/16 12:00 97.7 100 20 220/130 92 Nasal Cannula 2.0 10/27/16 10:49 161/90 10/27/16 08:00 97.8 90 20 196/73 94 Nasal Cannula 2.0 10/27/16 07:17 97 Nasal Cannula 2.0 28 10/27/16 07:17 95 18 Nasal Cannula 2.0 10/27/16 07:17 Nasal Cannula 2.0 28 10/27/16 04:00 98.3 90 20 151/83 96 Nasal Cannula 10/27/16 00:00 98.3 90 20 155/90 96 Nasal Cannula 10/26/16 20:00 99.0 91 21 168/84 94 Nasal Cannula 10/26/16 19:49 92 18 Nasal Cannula 2.0 10/26/16 15:37 97.2 90 20 158/77 94 Room Air Objective General Appearance: WD/WN HEENT: normocephalic, atraumatic Respiratory/Chest: chest wall non-tender, lungs clear Cardiovascular: normal peripheral pulses, normal rate Abdomen: normal bowel sounds, soft, non tender Extremities: no cyanosis, no clubbing Neurologic/Psychiatric: irish moss operator II-XII grossly normal, no motor/sensory deficits Microbiology Date/Time Source Procedure Growth Status 10/25/16 15:15 Blood Blood Culture - Preliminary NO GROWTH AFTER 24 HOURS Resulted 10/25/16 15:10 Blood Blood Culture - Preliminary NO GROWTH AFTER 24 HOURS Resulted Laboratory Tests 10/27/16 05:00: White Blood Count 2.3L, Red Blood Count 3.21L, Hemoglobin 10.6L, Hematocrit 31.1L, Mean Corpuscular Volume 97, Mean Corpuscular Hemoglobin 33.2H, Mean Corpuscular Hemoglobin Concent 34.3, Red Cell Distribution Width 13.6, Platelet Count 77L, Mean Platelet Volume 6.0L, Neutrophils (%) (Auto) , Lymphocytes (%) ( Auto) , Monocytes (%) (Auto) , Eosinophils (%) (Auto) , Basophils (%) (Auto) , Differential Total Cells Counted 100, Neutrophils % (Manual) 66, Lymphocytes % ( Manual) 18L, Monocytes % (Manual) 12H, Eosinophils % (Manual) 4H, Basophils % ( Manual) 0, Band Neutrophils 0, Platelet Estimate DecreasedL, Platelet Morphology Normal, Macrocytosis 1+, Tear Drop Cells 1+, Schistocytes 1+, Sodium Level 135, Potassium Level 4.1, Chloride Level 101, Carbon Dioxide Level 27, Anion Gap 7, Blood Urea Nitrogen 9, Creatinine 0.8, Estimat Glomerular Filtration Rate > 60, Glucose Level 75, Calcium Level 7.5L Current Medications Medications (Trade) Dose Ordered Sig/Tamar Route PRN Reason Start Time Stop Time Status Last Admin Dose Admin Albuterol Sulfate (Proventil MDI) 1 puff Q6H PRN INH Shortness of Breath 10/23/16 01:45 11/22/16 01:44 Bupropion HCl (Wellbutrin SR) 150 mg EVERY 12 HOURS ORAL 10/23/16 09:00 11/22/16 08:59 10/27/16 08:49 Chlorhexidine Gluconate (Meli-Hex 2%) 1 applic QHS TOPIC 10/25/16 21:00 11/24/16 20:59 10/26/16 21:24 Clonidine HCl (Catapres) 0.1 mg Q4H PRN ORAL For High Blood Pressure 10/23/16 01:30 11/22/16 01:29 10/24/16 20:44 Dapsone (Dapsone) 100 mg DAILY ORAL 10/23/16 09:00 10/30/16 08:59 10/27/16 08:49 Diphenhydramine HCl (Benadryl) 50 mg QHS ORAL 10/23/16 21:00 11/22/16 20:59 10/26/16 21:24 Estrogens Conjugated (Premarin) 1.25 mg DAILY ORAL 10/23/16 09:00 11/22/16 08:59 10/27/16 08:50 Ibuprofen (Motrin) 600 mg Q8H PRN ORAL PAIN/TEMP>100.5 10/25/16 17:45 11/24/16 17:44 10/25/16 12:58 Lisinopril (Zestril) 10 mg DAILY ORAL 10/27/16 11:00 11/26/16 10:59 10/27/16 10:49 Morphine Sulfate (Morphine Sulfate) 2 mg Q4H PRN IVP For Pain 10/23/16 19:00 10/30/16 18:59 10/27/16 11:49 Olanzapine (ZyPREXA Zydis) 10 mg BEDTIME ORAL 10/24/16 21:00 11/23/16 20:59 10/26/16 21:24 Potassium Chloride (K-Dur) 40 meq DAILY ORAL 10/25/16 15:00 11/24/16 14:59 10/26/16 09:43 Raltegravir (Isentress) 400 mg BID ORAL 10/23/16 12:45 11/22/16 12:44 Ritonavir (Norvir) 100 mg BID ORAL 10/23/16 12:45 11/22/16 12:44 Vancomycin HCl (Vanco rx to dose) 1 ea DAILY PRN MISC Per rx protocol 10/23/16 06:30 11/22/16 06:29 Vancomycin HCl 1 gm/Dextrose 275 ml @ 183.708 mls/hr Q12H IVPB 10/26/16 22:00 10/31/16 21:59 10/27/16 09:49 PAULO JOHNSON Oct 27, 2016 15:11
[2016-10-27] MEDS ORDERED: ZYPREXA10 MG ORAL (18:26)
[2016-10-27] MEDS ORDERED: LISINOPRIL10 MG ORAL (18:26)
[2016-10-27] MEDS ORDERED: K-TAB10 MEQ PO (18:27)
[2016-10-27] MEDS ORDERED: CATAPRES0.1 MG ORAL (18:28)
[2016-10-27] MEDS ORDERED: VIBRAMYCIN100 MG ORAL (18:33)
[2016-10-27] MEDS ORDERED: CEPHALEXIN500 MG ORAL (18:34)
[2016-10-27] MEDS ORDERED: Heplock Flush 100 units/ml 3 ml syr INJ ONE (18:45)
[2016-10-27] MEDS: ZyPREXA Zydis 10mg tab ORAL SCH (20:51)
[2016-10-27] MEDS: Dyna-Hex 2% Top Sol 8oz TOPIC SCH (20:51)
--- NOTE | 2016-10-28 12:09 | Discharge Summary ---
Discharge Summary Hospital Course Date of Admission Oct 22, 2016 at 19:47 Date of Discharge Oct 27, 2016 at 22:05 Admitting Diagnosis cellulities upper extrimity HPI Nestor Do is a 50 year old male who was admitted on Oct 22, 2016 at 19:47 for Cellulities Upper Extrimity Hospital Course dc summary #[id number] Discharge Medications Continued Medications: Albuterol Sulfate* (Proair Hfa*) 8.5 Gm Hfa.aer.ad 1 PUFF INH Q6HR PRN, INH Inhale one puff orally every 6 hours as needed for wheezing Bupropion Hcl* (Bupropion Hcl Sr*) 150 Mg Tablet.er 150 MG ORAL EVERY 12 HOURS, TAB Cephalexin* (Keflex*) 500 Mg Capsule 500 MG ORAL EVERY 6 HOURS for 5 Days, CAP Clonidine Hcl* (Catapres*) 0.1 Mg Tablet 0.1 MG ORAL EVERY 4 HOURS PRN for For High Blood Pressure, TAB Dapsone (Dapsone) 100 Mg Tablet 100 MG ORAL DAILY for 30 Days, TAB Diphenhydramine HCl (Diphenhydramine HCl) 50 Mg Cap 50 MG PO QHS, CAP AT NIGHT WITH ZYPREXA Doxycycline Hyclate* (Vibramycin*) 100 Mg Capsule 100 MG ORAL EVERY 12 HOURS for 5 Days, #14 CAP 0 Refills Estrogens,Conjugated (Premarin) 1.25 Mg Tablet 1.25 MG PO DAILY Ibuprofen* (Motrin*) 600 Mg Tablet 600 MG ORAL Q8H PRN for For Pain, #30 TAB 0 Refills Lisinopril* (Lisinopril*) 10 Mg Tablet 10 MG ORAL DAILY, TAB Olanzapine* (Zyprexa*) 10 Mg Tablet 10 MG ORAL QHS, #30 TAB 0 Refills Potassium Chloride (K-Tab) 10 Meq Tablet.er 40 MEQ PO DAILY, TAB Raltegravir (Isentress) 400 Mg Tab 400 MG PO BID, #20 TAB Take 1 tablet by mouth every 12 hours. Discharge Condition Upon Discharge: stable Discharge Disposition Patient was discharged to SNF/Subacute Facility(03) Discharge Diagnoses: Discharge Instructions Discharge Instructions Special Instructions I have been assigned to complete a D/C Summary on this account. I was not involved in the patient management Marcela Bethea NP ([facility]) Oct 28, 2016 12:09
--- NOTE | 2016-10-29 16:46 | Discharge Summary 2 SIG ---
DATE OF ADMISSION: 10/22/2016 DATE OF DISCHARGE: 10/27/2016 Reason for Admission: This is a 50-year-old male with history of HIV/AIDS, COPD, hypertension, and psychosis presented to the emergency room complaining of pain, swelling, and erythema of right elbow, right shoulder, and left medial ankle. The patient sustained a mechanical fall two days ago and spider bite to the left medial ankle a week ago. He denied fever, chills, and has a history of AIDS. Workup in the emergency room revealed low-grade fever of 99.9, pulse oximetry was stable on room air, and slightly elevated blood pressure 173/88. WBC 3.9, hemoglobin 11.4, hematocrit 32.1, and platelets 64,000. CBC with evidence of pancytopenia. . Sodium 133, potassium 3.0, BUN 17, and creatinine 0.7. Lactic acid 1.4. AST 104, ALT 95. CK-MB 10.4. Total CK borderline 174. Troponin negative. Albumin 2.7. X-ray of the right elbow revealed no acute fracture but showed soft tissue swelling and then x-ray of the right shoulder revealed no acute injury, but showed narrowed subacromial space suggestive of rotator cuff pathology and chronic deformity of the glenoid. In the emergency department, the patient had a splint to the right arm posterior splint applied by the emergency department bindery technician. The patient remained neurovascular intact. The patient given one liter of the IV fluids, started on empiric antibiotics. Potassium replaced and medicated for pain with ibuprofen and transferred to the floor for further management. ADMITTING DIAGNOSES: Includes: 1. Cellulitis, right arm, right foot, and left ankle. 2. Human immunodeficiency virus/acquired immunodeficiency syndrome status. 3. Pancytopenia. 4. Electrolyte abnormality; hyponatremia and hypokalemia. Hospital Stay: The patient admitted. Pain management provided. ID consult was requested. Blood culture were negative. Urine culture were negative. Blood culture on admission and repeated both negative. The patient was on IV antibiotics and subsequently was transitioned to oral antibiotics to complete the course of antibiotics upon discharge. ID closely followed. Counts were closely monitored. Hemoglobin and hematocrit remained in the baseline along with the platelets. WBC with a small trend down. The patient to follow up with an HIV provider as outpatient. The patient with severe protein-calorie malnutrition secondary to AIDS wasting syndrome and failure to thrive. Dietary input was implemented. HAART therapy was continued as before and followup as outpatient with Dr. Alfonso. The patient also with history of chronic hepatitis C which possibly could explain this elevated LFTs. Electrolytes were replaced and stable after replacement. Orthopedic doctor seen and evaluated the patient. According to orthopedic surgeon, the patient possibly have right foot nondisplaced radial head fracture. He recommended to wear splint no more than for one week and then removed the splint and start active range of motion of the right elbow and followup as outpatient for fitting with a hinged brace. At this point, he remains nonweightbearing until splints removed. Neurovascularly intact. Pain management addressed and provided. The patient was stable for discharge. FINAL DIAGNOSES: Includes: 1. Cellulitis right arm, right foot, and left ankle. 2. Right nondisplaced radial head fracture. 3. Human immunodeficiency virus/acquired immunodeficiency syndrome status. 4. Pancytopenia. 5. Electrolyte abnormalities; hyponatremia and hypokalemia. 6. Chronic hepatitis C. 7. Severe protein-calorie malnutrition secondary to acquired immunodeficiency syndrome wasting syndrome and failure to thrive. 8. Chronic inflammatory demyelinating polyneuropathy. 9. Hypertension. Blood pressure was managed with current regimen and was stable. 10. Methadone dependency. 11. Substance-induced psychosis. Of note, psychiatrist also seen and evaluated the patient and psychiatric regimen added by psychiatrist with Zyprexa and Wellbutrin. Discharge Instructions: The patient discharged to senior care facility. Followup: Followup with the HIV provider. Followup with medical doctor at the facility. DISCHARGE MEDICATIONS: See medication reconciliation list. Don Leach M.D. I have been assigned to dictate discharge summary on this account and I was not involved in the patient's management. Marcela dodsonsuyapa N.P. DR: PADMINI JOB#: [id number] CC:
== END 2016-10-27 22:05 | DRG 602 ==
LOC: EDBD 18:50 → EMR 19:02 → EDBEDREQ 19:26 → 4E 19:47 → EDBEDREQ 21:04
DX: L03.113 Cellulitis of right upper limb (principal); B20 Human immunodeficiency virus [HIV] disease; R64 Cachexia; E87.1 Hypo-osmolality and hyponatremia; D61.818 Other pancytopenia; E43 Unspecified severe protein-calorie malnutrition; L03.115 Cellulitis of right lower limb; G61.81 Chronic inflammatory demyelinating polyneuritis; F11.20 Opioid dependence, uncomplicated; L03.116 Cellulitis of left lower limb; Z68.1 Body mass index [BMI] 19.9 or less, adult; F31.89 Other bipolar disorder; B19.20 Unspecified viral hepatitis C without hepatic coma; R50.9 Fever, unspecified; Z59.0 Homelessness; S52.124A Nondisplaced fracture of head of right radius, initial encounter for closed fracture; W01.0XXA Fall on same level from slipping, tripping and stumbling without subsequent striking against object, initial encounter; Z88.6 Allergy status to analgesic agent; Z88.2 Allergy status to sulfonamides; Z88.8 Allergy status to other drugs, medicaments and biological substances; Z91.81 History of falling; Z87.891 Personal history of nicotine dependence; J44.9 Chronic obstructive pulmonary disease, unspecified; E87.6 Hypokalemia; F19.959 Other psychoactive substance use, unspecified with psychoactive substance-induced psychotic disorder, unspecified; Z22.322 Carrier or suspected carrier of Methicillin resistant Staphylococcus aureus; I10 Essential (primary) hypertension; R62.7 Adult failure to thrive
CPT/HCPCS: 29125; 36415; 71010; 80048; 80053; 80202; 81001; 82248; 82550; 82553; 83605; 84484; 85007; 85025; 87040; 87081; 87086; 90471; 90715; 94664; 94760; 99285; J8499